=== PATIENT | female | born 1960 | race Caucasian/White ===

== ENCOUNTER 2016-06-18 07:45 | Emergency (ER) | payer BC ==
[~2016-06-18] VITALS: Ht 167.6 cm; Wt 65.6 kg
[~2016-06-18 07:45] MED LIST: INDO-24 PO; IPRA0.037 NAE; MULT-513 PO; NAPR1TAB9 PO; ZOLM5SPR
[2016-06-18 07:50] VITALS: TEMP 36.6; Ht 167.6 cm; Wt 65.6 kg
[2016-06-18] MEDS ORDERED: SODIUM CHLORIDE 0.9% 1000ML 1,000 ML IV STA (08:15)
[2016-06-18] MEDS ORDERED: DEXAMETHASONE SOD INJ 4 MG/ML VIAL IV STA (08:15)
[2016-06-18] MEDS ORDERED: KETOROLAC TROMETHAMINE 30 MG/ML VIAL IV STA (08:15)
[2016-06-18] MEDS ORDERED: PROCHLORPERAZINE 5 MG/ML 2 ML VIAL IV STA (08:15)
[2016-06-18] MEDS ORDERED: DiphenhydrAMINE HCL 50 MG/ML VIAL IV STA (08:15)
[2016-06-18] MEDS ORDERED: LORAZEPAM 2 MG/ML 1 ML VIAL IV STA (08:15)
[2016-06-18 08:44] LABS: BASO % 0.5 %; BASO ABS # 0.04 K/uL (0-0.2); COMPLETE YES; EOS % 2.5 %; HEMATOCRIT 41.9 % (37-47); IG% 0.3 %; LYMPH % 29.1 %; LYMPH ABS # 2.19 K/uL (1.2-3.4); MEAN CORPUSCULAR HEMOGLOBIN 30.9 pg (25-34); MEAN CORPUSCULAR HGB CONC 35.1 g/dl (32-36); MEAN PLATELET VOLUME 10.2 fL (7.4-10.4); NEUT % 60.6 %; PLATELET COUNT 270 K/uL (130-400); RED BLOOD COUNT 4.76 M/uL (4.2-5.4); WHITE BLOOD COUNT 7.53 K/uL (4.8-10.8)
--- NOTE | 2016-06-18 08:58 | DIAGNOSTIC IMAGING REPORT ---
HEAD CT NONCONTRAST CT DOSE: 788.63 mGycm HISTORY: Headache. Evaluate for hemorrhage or pathology TECHNIQUE: Multiaxial CT images of the head were performed without the use of intravenous contrast. Automated exposure control was utilized for this study. Comparison: Head CT 08/08/2015. Findings: The paranasal sinuses and mastoid air cells are clear. The calvarium and skull base are intact. The ventricles and sulci are within normal limits. There is no mass, hematoma, midline shift, or acute infarct. Impression: No acute intracranial abnormality. Electronically signed by: Daniel Salazar M.D. 06/18/2016 8:57 AM Dictated Date/Time: 06/18/2016 8:51 AM
[2016-06-18 09:00] LABS: ALT/SGPT 19 U/L (12-78); BLOOD UREA NITROGEN 17 mg/dl (7-18); BUN/CREATININE RATIO 20.5 (10-20); CALCIUM 9.2 mg/dl (8.5-10.1); CARBON DIOXIDE 24 mmol/L (21-32); CHLORIDE 107 mmol/L (98-107); CREATININE 0.82 mg/dl (0.60-1.20); GLUCOSE 86 mg/dl (70-99); POTASSIUM 4.1 mmol/L (3.5-5.1); SODIUM 142 mmol/L (136-145)
[2016-06-18 09:11] LABS: ALKALINE PHOSPHATASE 50 U/L (45-117); AST/SGOT 14 U/L (15-37)
--- NOTE | 2016-06-18 10:29 | EMERGENCY ROOM VISIT NOTE ---
History First contact with patient: 08:00 Chief Complaint: HEADACHE Stated Complaint: SEVERE MIGRAINE History of Present Illness The patient is a 55 year old female who presents to the Emergency Room with complaints of a migraine headache. The patient reports that her symptoms were present upon awakening this morning. The patient reports a prior history of migraines that are usually left-sided. Her headache this morning is also left- sided. She reports that this headache feels different though and that she is weaker than usual. The patient also had 2 episodes of vomiting this morning. She also had some diarrhea yesterday and today. She reports that her legs left arm feel tingly. She otherwise has left-sided stabbing headache rated a 3 out of 10. She also reports photophobia. The patient denies any chest pain, shortness of breath or urinary symptoms. She presents with her son for further evaluation. Review of Systems 10 system review was performed and was negative except for pertinent positives and negatives as indicated in history of present illness Past Medical/Surgical History Medical Problems: (1) Migraines Family History FH: cancer Social History Smoking Status: Never Smoker Alcohol Use: none Drug Use: none Marital Status: single Housing Status: lives with family Occupation Status: employed Current/Historical Medications Scheduled Multivitamins/Minerals (Mvi With Minerals), 1 TAB PO DAILY Naproxen (Aleve), 220 MG PO Q8 Zolmitriptan (Zomig), 1 SPRAY NA DIRECTED Scheduled PRN Indomethacin (Indocin), 50 MG PO BID PRN for Migraine Allergies Coded Allergies: Latex1 -Allergic Contact Dermititis (Unverified Allergy, Mild, RASH, ) Physical Exam Vital Signs Date Time Temp Pulse Resp B/P Pulse Ox O2 Delivery O2 Flow Rate FiO2 06/18/16 09:14 72 18 155/73 96 Room Air 06/18/16 07:50 36.6 88 16 118/82 98 Room Air Physical Exam CONSTITUTIONAL: Healthy and well nourished. Alert and oriented X 3 with positive affect. HEENT: Normocephalic, atraumatic. Pupils equal, round and reactive. A shunt is photophobic, precluding funduscopic exam. NECK: Full active range of motion without discomfort. RESPIRATORY: Clear to auscultation bilaterally with no wheezing, crackles, rhonchi or stridor. CARDIOVASCULAR: Regular rate and rhythm with no murmurs, rubs or gallops. GASTROINTESTINAL: Bowel sounds present in all quadrants. Soft and nontender to palpation. MUSCULOSKELETAL: Full range of motion of all joints without discomfort. INTEGUMENTARY: No rash or other significant dermatologic conditions noted. NEUROLOGIC: Cranial nerves II-XII grossly intact. No focal neurologic deficits noted. Normal finger to nose test. Negative pronator drift. Medical Decision & Procedures ER Provider Diagnostic Interpretation: Noncontrast CT of the head does not show any intracranial hemorrhage, midline shift or mass effect. Radiologist report is as follows: HEAD CT NONCONTRAST CT DOSE: 788.63 mGycm HISTORY: Headache. Evaluate for hemorrhage or pathology TECHNIQUE: Multiaxial CT images of the head were performed without the use of intravenous contrast. Automated exposure control was utilized for this study. Comparison: Head CT 08/08/2015. Findings: The paranasal sinuses and mastoid air cells are clear. The calvarium and skull base are intact. The ventricles and sulci are within normal limits. There is no mass, hematoma, midline shift, or acute infarct. Impression: No acute intracranial abnormality. Laboratory Results 06/18/16 08:30 Red Blood Count 4.76, Mean Corpuscular Volume 88.0, Mean Corpuscular Hemoglobin 30.9, Mean Corpuscular Hemoglobin Concent 35.1, Mean Platelet Volume 10.2, Neutrophils (%) (Auto) 60.6, Lymphocytes (%) (Auto) 29.1, Monocytes (%) (Auto) 7.0, Eosinophils (%) (Auto) 2.5, Basophils (%) (Auto) 0.5, Neutrophils # (Auto) 4.56, Lymphocytes # (Auto) 2.19, Monocytes # (Auto) 0.53, Eosinophils # (Auto) 0.19, Basophils # (Auto) 0.04 06/18/16 08:30 Test 06/18/16 08:30 White Blood Count 7.53 K/uL (4.8-10.8) Red Blood Count 4.76 M/uL (4.2-5.4) Hemoglobin 14.7 g/dL (12.0-16.0) Hematocrit 41.9 % (37-47) Mean Corpuscular Volume 88.0 fL (80-100) Mean Corpuscular Hemoglobin 30.9 pg (25-34) Mean Corpuscular Hemoglobin Concent 35.1 g/dl (32-36) Platelet Count 270 K/uL (130-400) Mean Platelet Volume 10.2 fL (7.4-10.4) Neutrophils (%) (Auto) 60.6 % Lymphocytes (%) (Auto) 29.1 % Monocytes (%) (Auto) 7.0 % Eosinophils (%) (Auto) 2.5 % Basophils (%) (Auto) 0.5 % Neutrophils # (Auto) 4.56 K/uL (1.4-6.5) Lymphocytes # (Auto) 2.19 K/uL (1.2-3.4) Monocytes # (Auto) 0.53 K/uL (0.11-0.59) Eosinophils # (Auto) 0.19 K/uL (0-0.5) Basophils # (Auto) 0.04 K/uL (0-0.2) RDW Standard Deviation 40.0 fL (36.4-46.3) RDW Coefficient of Variation 12.4 % (11.5-14.5) Immature Granulocyte % (Auto) 0.3 % Immature Granulocyte # (Auto) 0.02 K/uL (0.00-0.02) Erythrocyte Sedimentation Rate 5 mm/hr (0-21) Anion Gap 11.0 mmol/L (3-11) Est Creatinine Clear Calc Drug Dose 73.4 ml/min Estimated GFR () 94.0 Estimated GFR (Non- 81.1 BUN/Creatinine Ratio 20.5 (10-20) Calcium Level 9.2 mg/dl (8.5-10.1) Total Bilirubin 0.3 mg/dl (0.2-1) Direct Bilirubin < 0.1 mg/dl (0-0.2) Aspartate Amino Transf (AST/SGOT) 14 U/L (15-37) Alanine Aminotransferase (ALT/SGPT) 19 U/L (12-78) Alkaline Phosphatase 50 U/L (45-117) Total Protein 7.4 gm/dl (6.4-8.2) Albumin 4.1 gm/dl (3.4-5.0) Thyroid Stimulating Hormone (TSH) 1.450 uIu/ml (0.300-4.500) The above labs were reviewed and were grossly normal. Medications Administered Medications (Trade) Dose Ordered Sig/Gianfranco Route Start Time Stop Time Status Last Admin Dose Admin Prochlorperazine Edisylate 10 mg 10 mg NOW STAT IV 06/18/16 08:15 06/18/16 08:20 DC 06/18/16 08:39 10 MG Sodium Chloride (Nss 1000ml) 1,000 ml @ 999 mls/hr Q1H1M STAT IV 06/18/16 08:15 06/18/16 09:15 DC 06/18/16 08:40 999 MLS/HR Lorazepam (Ativan Inj) 1 mg NOW STAT IV 06/18/16 08:15 06/18/16 08:20 DC 06/18/16 08:38 1 MG Ketorolac Tromethamine (Toradol Inj) 30 mg NOW STAT IV 06/18/16 08:15 06/18/16 08:20 DC 06/18/16 08:46 30 MG Dexamethasone Sodium Phosphate (Decadron Inj) 10 mg NOW STAT IV 06/18/16 08:15 06/18/16 08:20 DC 06/18/16 08:38 10 MG Diphenhydramine HCl (Benadryl Inj) 25 mg NOW STAT IV 06/18/16 08:15 06/18/16 08:20 DC 06/18/16 08:39 25 MG ED Course Patient history and physical exam were performed. Nurse's notes were reviewed. Vital signs were reviewed and were normal. Because the patient's symptoms are atypical of her migraine, I did elect to perform additional lab work and a head CT. Head CT was normal. Lab work was also reviewed and normal. Patient was administered multiple IV medications as discussed in the previous Medications Administered section. The patient reported good relief of her symptoms. The patient reports that she does have a neurologist. She was encouraged to contact their office for close management. Return to the emergency department for any progressively worsening symptoms. She was instructed to rest and remain well-hydrated. Patient reports that she is currently using Zomig nasal sprays and OTC Naprosyn for her symptoms. Medical Decision She presents to the emergency department with symptoms most consistent with her typical migraine. I did however elect to perform additional lab work and a head CT because her symptoms seem to be somewhat different than what she has experienced in the past. Her workup today was otherwise normal. Based on history, physical exam and findings on today's workup, I do not suspect intracranial bleed, meningitis, CVA/TIA, abscess or carbon monoxide poisoning. Impression Primary Impression: Migraine Departure Information Referrals Ida Stacy M.D. (PCP) Patient Instructions My [facility] Problem Qualifiers Primary Impression: Migraine Migraine type: unspecified Status migrainosus presence: without status migrainosus Intractability: not intractable Qualified Codes: G43.909 - Migraine, unspecified, not intractable, without status migrainosus
[2016-06-18 10:38] VITALS: BP 122/83; PULSE 80; O2SAT 96
== END 2016-06-18 10:39 | disposition home or self-care (01) ==
LOC: C.EDB 07:47 → C.EDA 10:39
DX: G43.909 Migraine, unspecified, not intractable, without status migrainosus (principal); Z91.040 Latex allergy status; Z80.9 Family history of malignant neoplasm, unspecified

== ENCOUNTER 2016-07-23 08:43 | Emergency (ER) | payer BC ==
[~2016-07-23] VITALS: Ht 167.6 cm; Wt 67.3 kg
[~2016-07-23 08:43] MED LIST changes: -IPRA0.037 NAE
[2016-07-23 08:52] VITALS: TEMP 36.4; Ht 167.6 cm; Wt 67.3 kg
[2016-07-23] MEDS ORDERED: PROMETHAZINE HCL INJ 25 MG in SODIUM CHLORIDE 0.9% 50ML 50 ML IV STA (09:05)
[2016-07-23] MEDS ORDERED: SODIUM CHLORIDE 0.9% 1000ML 1,000 ML IV STA (09:05)
[2016-07-23] MEDS ORDERED: DiphenhydrAMINE HCL 50 MG/ML VIAL IV STA (09:05)
[2016-07-23] MEDS ORDERED: LORAZEPAM 2 MG/ML 1 ML VIAL IV STA (09:05)
[2016-07-23] MEDS ORDERED: KETOROLAC TROMETHAMINE 30 MG/ML VIAL IV STA (09:05)
[2016-07-23] MEDS ORDERED: DEXAMETHASONE SOD INJ 10 MG/ML VIAL IV STA (09:05)
--- NOTE | 2016-07-23 09:06 | EMERGENCY ROOM VISIT NOTE ---
History Report prepared by Darnell: Levi Watt Under the Supervision of: Dr. Jah Holley M.D. First contact with patient: 08:58 Chief Complaint: HEADACHE Stated Complaint: HEADACHE History of Present Illness The patient is a 56 year old female who presents to the Emergency Room with complaints of a persistent migraine headache that started two days ago. The pain is rated 6/10 in severity. The headache is localized to the left side of her head and feels like a typical migraine. She denies any neck stiffness of neck pain outside of her baseline chronic neck pain. The patient has been taking Naproxen and Indomethacin. She follows up with Neurology. Source of History: patient Onset: two days ago Position: head Symptom Intensity: 6/10 Quality: other (migraine) Timing: other (persistent) Associated Symptoms: No neck pain Review of Systems See HPI for pertinent positives & negatives. A total of 10 systems reviewed and were otherwise negative. Past Medical & Surgical Medical Problems: (1) Migraines Family History FH: cancer Social History Smoking Status: Never Smoker Alcohol Use: none Drug Use: none Marital Status: single Housing Status: lives with family Occupation Status: employed Current/Historical Medications Scheduled Multivitamins/Minerals (Mvi With Minerals), 1 TAB PO DAILY Naproxen (Aleve), 220 MG PO Q8 Zolmitriptan (Zomig), 1 SPRAY NA DIRECTED Scheduled PRN Indomethacin (Indocin), 50 MG PO BID PRN for Migraine Allergies Coded Allergies: Latex1 -Allergic Contact Dermititis (Unverified Allergy, Mild, RASH, ) Physical Exam Vital Signs Date Time Temp Pulse Resp B/P Pulse Ox O2 Delivery O2 Flow Rate FiO2 07/23/16 12:20 87 144/68 98 07/23/16 11:29 100 113/97 97 Room Air 07/23/16 10:25 86 07/23/16 08:52 36.4 77 16 138/86 99 Room Air Physical Exam GENERAL: Patient is a healthy-appearing well-nourished HEAD: Normocephalic atraumatic EYES: Ocular movements intact pupils equal and react to light OROPHARYNX mucous membranes are moist no exudates present no erythema or edema present NECK: Supple no nuchal rigidity. No evidence of meningitis or encephalitis on exam. CHEST: Good equal expansion LUNGS: Clear and equal to auscultation CARDIAC: Normal S1 and S2 ABDOMEN: Soft nontender no guarding BACK: No CVA tenderness EXTREMITIES: No pain upon palpation normal muscle strength in all groups no clubbing cyanosis or edema NEURO: Patient is following commands is answering questions appropriately. Alert and oriented x3 Cranial Nerves 2-12 grossly intact Medical Decision & Procedures Medications Administered Medications (Trade) Dose Ordered Sig/Gianfranco Route Start Time Stop Time Status Last Admin Dose Admin Sodium Chloride (Nss 1000ml) 1,000 ml @ 999 mls/hr Q1H1M STAT IV 07/23/16 09:05 07/23/16 10:05 DC 07/23/16 09:56 999 MLS/HR Ketorolac Tromethamine 30 mg 30 mg NOW STAT IV 07/23/16 09:05 07/23/16 09:08 DC 07/23/16 09:55 30 MG Promethazine HCl/ Sodium Chloride (Phenergan Inj/ Nss 50ml) 51 ml @ 204 mls/hr NOW STAT IV 07/23/16 09:05 07/23/16 09:19 DC 07/23/16 09:52 204 MLS/HR Lorazepam (Ativan Inj) 1 mg NOW STAT IV 07/23/16 09:05 07/23/16 09:08 DC 07/23/16 09:54 1 MG Diphenhydramine HCl (Benadryl Inj) 50 mg NOW STAT IV 07/23/16 09:05 07/23/16 09:08 DC 07/23/16 09:55 50 MG Dexamethasone Sodium Phosphate (Decadron Inj) 10 mg NOW STAT IV 07/23/16 09:05 07/23/16 09:08 DC 07/23/16 09:56 10 MG ED Course 0905: Past medical records reviewed. The patient was evaluated in room B11b. A complete history and physical examination was performed. 0905: Decadron 10 mg IV, Benadryl 50 mg IV, Ativan 1 mg IV, Promethazine HCl 25 mg / NSS 51 ml @ 204 mls/hr, Toradol 30 mg IV, NSS 1000 ml @ 999 mls/hr. 1120: Reassessed the patient. Discussed the treatment plan with her. She verbalized understanding. She is ready for discharge. Medical Decision Differential diagnosis: Etiologies such as migraine headache, meningitis, sinusitis, CO exposure, ICH, SAH, infection, tumor, headache, sinus thrombosis, arterial dissection, as well as others were entertained. This is a 56-year-old female who presents emergency department complaining of migraine. The patient states that this is a normal migraine headache for her. She denies any neck stiffness and has no evidence of meningitis or encephalitis on examination. The patient asked for her normal routine meds which include Compazine and Benadryl and Decadron and Toradol and Ativan. The patient was actually given Phenergan instead of Compazine. She complained of a dystonic reaction to the Phenergan however does not wish to have any more meds and wishes to go home and sleep it off. The patient at the time of discharge was feeling much better from a headache. She is going to follow-up with her neurologist and was in agreement with the treatment plan. Impression Primary Impression: Headache Scribe Attestation The scribe's documentation has been prepared under my direction and personally reviewed by me in its entirety. I confirm that the note above accurately reflects all work, treatment, procedures, and medical decision making performed by me. Departure Information Dispostion Home / Self-Care Referrals Ida Stacy M.D. (PCP) Forms HOME CARE DOCUMENTATION FORM, IMPORTANT VISIT INFORMATION, School Instructions, Work Instructions Patient Instructions Headache Pain, My [facility] Additional Instructions You received narcotic or benzodiazepene medication while in the emergency room today. Do not drive, operate heavy machinery, or drink alcohol under the influence of this medication. You have been examined and treated today on an emergency basis only. This is not a substitute for, or an effort to provide, complete comprehensive medical care. It is impossible to recognize and treat all injuries or illnesses in a single emergency department visit. It is therefore important that you follow up closely with DR Stacy. Call as soon as possible for an appointment. Thank you for your time and consideration. I look forward to speaking with you again soon. Please don't hesitate to call us if you have any questions. Problem Qualifiers Primary Impression: Headache Headache type: tension-type Headache chronicity pattern: acute headache Intractability: not intractable Qualified Codes: G44.209 - Tension-type headache, unspecified, not intractable
[2016-07-23 12:20] VITALS: BP 144/68; PULSE 87; O2SAT 98
== END 2016-07-23 12:23 | disposition home or self-care (01) ==
LOC: C.EDB 08:45
DX: G44.209 Tension-type headache, unspecified, not intractable (principal)

== ENCOUNTER 2016-08-27 00:23 | Emergency (ER) | payer BC ==
[~2016-08-27] VITALS: Ht 167.6 cm; Wt 77.5 kg
[2016-08-27 00:28] VITALS: TEMP 36.4; Ht 167.6 cm; Wt 77.5 kg
[2016-08-27] MEDS ORDERED: SODIUM CHLORIDE 0.9% 1000ML 1,000 ML IV STA (00:36)
[2016-08-27] MEDS ORDERED: KETOROLAC TROMETHAMINE 30 MG/ML VIAL IV STA (00:36)
[2016-08-27] MEDS ORDERED: DiphenhydrAMINE HCL 50 MG/ML VIAL IV STA (00:36)
[2016-08-27] MEDS ORDERED: DEXAMETHASONE SOD INJ 4 MG/ML VIAL IV STA (00:36)
[2016-08-27] MEDS ORDERED: LORAZEPAM 2 MG/ML 1 ML VIAL IV STA (00:36)
[2016-08-27] MEDS ORDERED: PROCHLORPERAZINE 5 MG/ML 2 ML VIAL IV STA (00:36)
[2016-08-27 01:07] VITALS: O2SAT 96
[2016-08-27 02:14] VITALS: BP 140/79; PULSE 78; O2SAT 97
--- NOTE | 2016-08-27 02:23 | EMERGENCY ROOM VISIT NOTE ---
History Report prepared by Orlandoibkeya: Jonathon Still Under the Supervision of: Dr. Mookie Dominguez M.D. First contact with patient: 00:30 Chief Complaint: HEADACHE Stated Complaint: MIGRAINE,NAUSEA,THROWING UP History of Present Illness The patient is a 56 year old female who presents to the Emergency Room with complaints of a constant headache beginning yesterday. She has a history of migraines and states that her current headaches feels like a typical migraine. She is on Indocin for her migraines. The patient has had migraines for almost 30 years. She denies any recent falls or trauma. She also complains of nausea, and states that she vomited once today. The patient states that the nausea is typical of her migraines. She states that her headache began in the back of her head, and moved to the front of her head. She states that this is also typical of her migraines. The patient states that she has experienced some left arm and leg tingling which is also typical of her migraines. Pt denies LOC, fevers, chills, visual changes, neck pain/stiffness, thunder clap or sudden onset of headache, carbon monoxide exposure, ear problems/hearing loss, sinus congestion/ recent infection, chest pain, breathing difficulties, abdominal pain, urinary symptoms, weakness, lymphadenopathy, rash, or other complaints. Source of History: patient Onset: Yesterday Position: head Timing: constant Associated Symptoms: + nausea, + vomiting, No LOC, No weakness Review of Systems See HPI for pertinent positives and negatives. A total of ten systems were reviewed and were otherwise negative. Past Medical & Surgical Medical Problems: (1) Migraines Family History FH: cancer Social History Smoking Status: Never Smoker Alcohol Use: none Drug Use: none Marital Status: single Housing Status: lives with family Occupation Status: employed Current/Historical Medications Scheduled Multivitamins/Minerals (Mvi With Minerals), 1 TAB PO DAILY Scheduled PRN Indomethacin (Indocin), 50 MG PO BID PRN for Migraine Naproxen (Aleve), 440 MG PO Q8 PRN for Pain Zolmitriptan (Zomig), 1 SPRAY NA DIRECTED PRN for Migraine Allergies Coded Allergies: Latex1 -Allergic Contact Dermititis (Unverified Allergy, Mild, RASH, ) Physical Exam Vital Signs Date Time Temp Pulse Resp B/P Pulse Ox O2 Delivery O2 Flow Rate FiO2 08/27/16 02:14 78 14 140/79 97 Room Air 08/27/16 01:07 96 Nasal Cannula 2.0 08/27/16 01:06 84 Room Air 08/27/16 01:04 79 08/27/16 01:04 74 18 138/70 94 Room Air 08/27/16 00:28 36.4 78 20 130/86 99 Room Air Physical Exam GENERAL: Awake, alert, uncomfortable appearing, tearful HENT: Normocephalic, atraumatic. TM's normal. Oropharynx unremarkable. EYES: PERRL. EOMI. Normal conjunctiva. Sclera non-icteric. NECK: Supple. No nuchal rigidity. FROM. No JVD or bruit. RESPIRATORY: CTA CARDIAC: RRR. No murmur. ABDOMEN: Soft, non distended. No tenderness to palpation. No rebound or guarding. No masses. RECTAL: Deferred. MUSCULOSKELETAL: Unremarkable. No edema. No discoloration. Gross motor strength symmetric. NEURO: Cranial nerves 2-12 grossly intact. Normal sensorium. No sensory or motor deficits noted. Speech normal. No pronator drift. Subjective tingling in the left arm and left leg. Mild weakness in the left leg with hip flection and plantar flection. SKIN: No rash or jaundice noted. LYMPH: No adenopathy. Medical Decision & Procedures Medications Administered Medications (Trade) Dose Ordered Sig/[facility] Route Start Time Stop Time Status Last Admin Dose Admin Prochlorperazine Edisylate 10 mg 10 mg NOW STAT IV 08/27/16 00:36 08/27/16 00:38 DC 08/27/16 00:57 10 MG Sodium Chloride (Nss 1000ml) 1,000 ml @ 999 mls/hr Q1H1M STAT IV 08/27/16 00:36 08/27/16 01:36 DC 08/27/16 00:47 999 MLS/HR Ketorolac Tromethamine (Toradol Inj) 30 mg NOW STAT IV 08/27/16 00:36 08/27/16 00:38 DC 08/27/16 00:49 30 MG Diphenhydramine HCl (Benadryl Inj) 25 mg NOW STAT IV 08/27/16 00:36 08/27/16 00:38 DC 08/27/16 00:48 25 MG Dexamethasone Sodium Phosphate (Decadron Inj) 10 mg NOW STAT IV 08/27/16 00:36 08/27/16 00:38 DC 08/27/16 00:51 10 MG Lorazepam (Ativan Inj) 0.5 mg NOW STAT IV 08/27/16 00:36 08/27/16 00:38 DC 08/27/16 00:54 0.5 MG ED Course 0035: The patient was evaluated in room B9. A complete history and physical exam was performed. 0036: Ordered Ativan Inj 0.5 mg IV, Decadron Inj 10 mg IV, Benadryl Inj 25 mg IV , Toradol Inj 30 mg IV, Sodium Chloride 1000 ml @ 999 mls/hr IV, Compazine Inj 10 mg IV. 0225: I reevaluated the patient. She feels much better and symptoms resolved. Discussed results and discharge instructions: she verbalized understanding and agreement. The patient is ready for discharge. Medical Decision Triage Nursing notes reviewed. The patient's presentation and history were concerning for severe headache. Etiologies such as migraine, tumor, headache, sinus thrombosis, temporal arteritis, sinusitis, CVA, ICH, SAH, infection, as well as others were entertained. The patient was evaluated. She was very uncomfortable. Record review indicates frequent visits for headache. She was previously treated with Compazine, Benadryl, Decadron, Toradol, normal saline, and Ativan. The patient was given the same medications. She had complaints of some tingling and weakness on the left side of her body and notes that she has had this with many other previous migraines. She is followed by neurology. The patient does note a lot of stress recently with family health issues. The patient received the medications and then was resting comfortably. On reassessment also symptoms are resolved. She has no more numbness, tingling or weakness on the left side. She states she feels back to normal. I did discuss the need for close outpatient follow-up especially with neurology. I gave my usual and customary discussion regarding this issue. By the evaluation outlined above other emergent etiologies such as those listed in the differential, as well as others, were deemed relatively unlikely. The patient was informed about the findings as listed above. All questions were answered and she was pleased with the treatment. Return instructions were outlined and the patient was discharged in stable condition. The patient was referred to her PCP for follow-up this week a recheck of the current condition. The chart was completed utilizing [employer] Speech voice recognition software. Grammatical errors, random word insertions, pronoun errors, and incomplete sentences are an occasional consequence of this system due to software limitations, ambient noise, and hardware issues. Any formal questions or concerns about the content, text, or information contained within the body of this dictation should be directly addressed to the physician for clarification. Impression Primary Impression: Headache Scribe Attestation The scribe's documentation has been prepared under my direction and personally reviewed by me in its entirety. I confirm that the note above accurately reflects all work, treatment, procedures, and medical decision making performed by me. Departure Information Dispostion Home / Self-Care Referrals Ida Stacy M.D. (PCP) Patient Instructions My [facility] Additional Instructions HEADACHE INSTRUCTIONS: DO NOT drive, drink alcohol, operate machinery, or perform dangerous activities today. You were given medications in the ER that can affect your ability to safely function or operate a vehicle. Rest today in a quiet, peaceful, dark environment and get a full 8-10 hrs of sleep tonight. Avoid loud noises, smoke/smoking, alcohol, bright lights, stress, or physical exertion today to minimize the chance the headache may return. Continue current medications. Ibuprofen(Motrin, Advil) may be used for fever or pain. Use 600mg every six hours as needed. Take with food. Avoid using more than 2400mg in a 24 hour period. Do not use 2400mg per day for more than three consecutive days without physician direction. Prolonged inappropriate use can lead to stomach upset or ulcers. (AND/OR) Acetaminophen(Tylenol) may be used for fever or pain. Use 1000mg every six hours as needed. Avoid using more than 4000mg in a 24 hour period. Return to the ER for passing out, worsening headache, vision problems, neck stiffness/pain, fevers, vomiting, worsening of your condition, or as needed. Follow up with your primary physician in 1-2 days for a recheck of your current condition. Problem Qualifiers Primary Impression: Headache Headache type: unspecified Headache chronicity pattern: acute headache Intractability: not intractable Qualified Codes: R51 - Headache
== END 2016-08-27 02:30 | disposition home or self-care (01) ==
LOC: C.EDB 00:24
DX: R51 Headache (principal); Z91.040 Latex allergy status; Z80.9 Family history of malignant neoplasm, unspecified

== ENCOUNTER 2016-10-18 08:47 | Emergency (ER) | payer BC ==
[~2016-10-18] VITALS: Ht 167.6 cm; Wt 67.0 kg
[2016-10-18 08:55] VITALS: TEMP 36.4; Ht 167.6 cm; Wt 67.0 kg
[2016-10-18] MEDS ORDERED: LORAZEPAM 2 MG/ML 1 ML VIAL IV STA (09:11)
[2016-10-18] MEDS ORDERED: SODIUM CHLORIDE 0.9% 1000ML 1,000 ML IV STA (09:11)
[2016-10-18] MEDS ORDERED: KETOROLAC TROMETHAMINE 30 MG/ML VIAL IV STA (09:11)
[2016-10-18] MEDS ORDERED: DiphenhydrAMINE HCL 50 MG/ML VIAL IV STA (09:11)
[2016-10-18] MEDS ORDERED: PROMETHAZINE HCL INJ 25 MG in SODIUM CHLORIDE 0.9% 50ML 50 ML IV STA (09:11)
[2016-10-18] MEDS ORDERED: PROCHLORPERAZINE 5 MG/ML 2 ML VIAL IV STA (09:15)
[2016-10-18] MEDS ORDERED: DEXAMETHASONE SOD INJ 10 MG/ML VIAL IV ONE (09:15)
--- NOTE | 2016-10-18 09:26 | EMERGENCY ROOM VISIT NOTE ---
History First contact with patient: 09:03 Chief Complaint: HEADACHE Stated Complaint: MIGRAINE History of Present Illness The patient is a 56 year old female who presents to the Emergency Room with complaints of migraine. The patient's headache started last night. The patient has a long-standing history of migraines for the last 30 years. The patient seems to be in great distress from her headache is crying and clutching her head and will not answer questions. The patient's son provides the majority of the history. He states this is very typical presentation for her. She has not been sick recently. She has not had any earache, sore throat, cough or fever. He states that she does have a neurologist with whom she follows closely. The patient rates her discomfort a 10/10. The patient's son has a list of medications that are usually tried and are successful to alleviate the migraine. The patient has not had any numbness, tingling, weakness although she has had complex migraines in the past. Review of Systems A 10 system review of systems was completed with positives and pertinent negatives listed in the HPI. Past Medical/Surgical History Medical Problems: (1) Migraines Family History FH: cancer Social History Smoking Status: Never Smoker Alcohol Use: none Drug Use: none Marital Status: single Housing Status: lives with family Occupation Status: employed Current/Historical Medications Scheduled Multivitamins/Minerals (Mvi With Minerals), 1 TAB PO DAILY Scheduled PRN Indomethacin (Indocin), 50 MG PO BID PRN for Migraine Naproxen (Aleve), 440 MG PO Q8 PRN for Pain Zolmitriptan (Zomig), 1 SPRAY NA DIRECTED PRN for Migraine Allergies Coded Allergies: Latex1 -Allergic Contact Dermititis (Unverified Allergy, Mild, RASH, ) Physical Exam Vital Signs Date Time Temp Pulse Resp B/P (MAP) Pulse Ox O2 Delivery O2 Flow Rate FiO2 10/18/16 10:49 108 18 117/50 98 Room Air 10/18/16 10:17 83 18 130/92 98 Room Air 10/18/16 08:55 36.4 85 22 130/78 97 Room Air Physical Exam VITALS: Vitals are noted on the nurse's note and reviewed by myself. Vital signs stable. GENERAL: This is a 56-year-old female who appears to be in great distress from the headache, nondiaphoretic, well-developed well-nourished. SKIN: The skin was without rashes, erythema, edema, or bruising. There is no tenting of the skin. Capillary reflex less than 2 seconds. HEAD: Normocephalic atraumatic. EARS: External auditory canals clear, tympanic membranes pearly zapien without erythema or effusion bilaterally. EYES: Pupils equal round and reactive to light and accommodation. Conjunctivae without injection, sclerae without icterus. Extraocular movements intact. NOSE: Patent, turbinates without inflammation or discharge. No sinus tenderness. MOUTH: Mucous membranes moist. Tonsils are not enlarged. Pharynx without erythema or exudate. Uvula midline. Airway patent. Tongue does not deviate. NECK: Supple without nuchal rigidity. No lymphadenopathy. No thyromegaly. Cervical spine is nontender. No JVD. HEART: Regular rate and rhythm without murmurs gallops or rubs. LUNGS: Clear to auscultation bilaterally without wheezes, rales or rhonchi. No retractions or accessory muscle use. MUSCULOSKELETAL: No muscle atrophy, erythema, or edema noted. Full range of motion in all extremities. Strength 5/5 throughout. NEURO: Patient was alert and oriented to person place and time. No focal neurological deficits. Medical Decision & Procedures Laboratory Results 10/18/16 09:30 Red Blood Count 5.27, Mean Corpuscular Volume 88.2, Mean Corpuscular Hemoglobin 29.8, Mean Corpuscular Hemoglobin Concent 33.8, Mean Platelet Volume 10.1, Neutrophils (%) (Auto) 61.4, Lymphocytes (%) (Auto) 29.0, Monocytes (%) (Auto) 6.8, Eosinophils (%) (Auto) 1.9, Basophils (%) (Auto) 0.6, Neutrophils # (Auto) 3.88, Lymphocytes # (Auto) 1.83, Monocytes # (Auto) 0.43, Eosinophils # (Auto) 0.12, Basophils # (Auto) 0.04 10/18/16 09:30 Test 10/18/16 09:30 White Blood Count 6.32 K/uL (4.8-10.8) Red Blood Count 5.27 M/uL (4.2-5.4) Hemoglobin 15.7 g/dL (12.0-16.0) Hematocrit 46.5 % (37-47) Mean Corpuscular Volume 88.2 fL (80-100) Mean Corpuscular Hemoglobin 29.8 pg (25-34) Mean Corpuscular Hemoglobin Concent 33.8 g/dl (32-36) Platelet Count 296 K/uL (130-400) Mean Platelet Volume 10.1 fL (7.4-10.4) Neutrophils (%) (Auto) 61.4 % Lymphocytes (%) (Auto) 29.0 % Monocytes (%) (Auto) 6.8 % Eosinophils (%) (Auto) 1.9 % Basophils (%) (Auto) 0.6 % Neutrophils # (Auto) 3.88 K/uL (1.4-6.5) Lymphocytes # (Auto) 1.83 K/uL (1.2-3.4) Monocytes # (Auto) 0.43 K/uL (0.11-0.59) Eosinophils # (Auto) 0.12 K/uL (0-0.5) Basophils # (Auto) 0.04 K/uL (0-0.2) RDW Standard Deviation 38.7 fL (36.4-46.3) RDW Coefficient of Variation 12.2 % (11.5-14.5) Immature Granulocyte % (Auto) 0.3 % Immature Granulocyte # (Auto) 0.02 K/uL (0.00-0.02) Anion Gap 6.0 mmol/L (3-11) Est Creatinine Clear Calc Drug Dose 65.3 ml/min Estimated GFR () 82.3 Estimated GFR (Non- 71.0 BUN/Creatinine Ratio 21.5 (10-20) Calcium Level 9.2 mg/dl (8.5-10.1) Medications Administered Medications (Trade) Dose Ordered Sig/Gianfranco Route Start Time Stop Time Status Last Admin Dose Admin Sodium Chloride 1,000 ml @ 999 mls/hr Q1H1M STAT IV 10/18/16 09:11 10/18/16 10:11 DC 10/18/16 09:11 999 MLS/HR Ketorolac Tromethamine (Toradol Inj) 30 mg NOW STAT IV 10/18/16 09:11 10/18/16 09:14 DC 10/18/16 09:11 30 MG Diphenhydramine HCl (Benadryl Inj) 25 mg NOW STAT IV 10/18/16 09:11 10/18/16 09:14 DC 10/18/16 09:11 25 MG Dexamethasone Sodium Phosphate (Decadron Inj) 10 mg NOW ONCE IV 10/18/16 09:15 10/18/16 09:16 DC 10/18/16 09:15 10 MG Lorazepam (Ativan Inj) 0.5 mg NOW STAT IV 10/18/16 09:11 10/18/16 09:14 DC 10/18/16 09:11 0.5 MG Prochlorperazine Edisylate (Compazine Inj) 10 mg NOW STAT IV 10/18/16 09:15 10/18/16 09:16 DC 10/18/16 09:15 10 MG ED Course The patient was seen and examined. Previous visits were reviewed. The patient does not have a fever or leukocytosis. She does not have any significant electrolyte abnormality. The patient was given IV Compazine, Benadryl, Toradol and Ativan with good improvement in her symptoms The patient presents to the emergency department with a long-standing history of migraines. She has very dramatic in presentation and her family members are quite doting on her. They state that this is very typical presentation for her. She has not had any fevers. She does not have leukocytosis, neck stiffness, nuchal rigidity to suggest meningitis. She was feeling better with the above medications which typically work for her. She should follow-up with her neurologist for further evaluation and management. She should return with any worsening symptoms. Medical Decision The differential diagnosis includes: head or neck trauma, cerebrovascular disorders, intracranial lesions, infection,transient ischemic attack (TIA), CVA , seizure, syncope, intracranial mass, intracranial bleeding and vestibular disorders, among others Impression Primary Impression: Migraine headache Departure Information Dispostion Home / Self-Care Condition GOOD Referrals Ida Stacy M.D. (PCP) [facility] Additional Instructions Rest Follow up with your neurologist for further evaluation and management Return with worsening symptoms Problem Qualifiers Primary Impression: Migraine headache
[2016-10-18 09:43] LABS: BASO % 0.6 %; BASO ABS # 0.04 K/uL (0-0.2); COMPLETE YES; EOS % 1.9 %; HEMATOCRIT 46.5 % (37-47); IG% 0.3 %; LYMPH ABS # 1.83 K/uL (1.2-3.4); MEAN CELL VOLUME 88.2 fL (80-100); MEAN CORPUSCULAR HEMOGLOBIN 29.8 pg (25-34); MEAN CORPUSCULAR HGB CONC 33.8 g/dl (32-36); MEAN PLATELET VOLUME 10.1 fL (7.4-10.4); MONO % 6.8 %; NEUT % 61.4 %; PLATELET COUNT 296 K/uL (130-400); RED BLOOD COUNT 5.27 M/uL (4.2-5.4); WHITE BLOOD COUNT 6.32 K/uL (4.8-10.8)
[2016-10-18 10:01] LABS: BUN/CREATININE RATIO 21.5 (10-20); CALCIUM 9.2 mg/dl (8.5-10.1); CREATININE 0.91 mg/dl (0.60-1.20); POTASSIUM 4.1 mmol/L (3.5-5.1)
[2016-10-18 10:49] VITALS: BP 117/50; PULSE 108; O2SAT 98
== END 2016-10-18 11:27 | disposition home or self-care (01) ==
LOC: C.EDB 08:48
DX: G43.909 Migraine, unspecified, not intractable, without status migrainosus (principal); Z80.9 Family history of malignant neoplasm, unspecified; Z79.899 Other long term (current) drug therapy

== ENCOUNTER 2016-12-08 20:01 | Emergency (ER) | payer BC ==
[~2016-12-08] VITALS: Ht 167.6 cm; Wt 67.5 kg
[2016-12-08 20:09] VITALS: Ht 167.6 cm; Wt 67.5 kg
[2016-12-08] MEDS ORDERED: ACETAMINOPHEN 325 MG TAB PO STA (21:17)
[2016-12-08 21:42] LABS: BASO % 1.4 %; BASO ABS # 0.08 K/uL (0-0.2); COMPLETE YES; EOS % 1.6 %; HEMATOCRIT 43.9 % (37-47); IG% 0.2 %; LYMPH % 27.8 %; MEAN CORPUSCULAR HEMOGLOBIN 30.5 pg (25-34); MEAN CORPUSCULAR HGB CONC 33.9 g/dl (32-36); MEAN PLATELET VOLUME 9.9 fL (7.4-10.4); MONO % 17.2 %; NEUT % 51.8 %; PLATELET COUNT 272 K/uL (130-400); RED BLOOD COUNT 4.88 M/uL (4.2-5.4); WHITE BLOOD COUNT 5.75 K/uL (4.8-10.8)
[2016-12-08 22:10] VITALS: TEMP 36.9
[2016-12-08 23:21] LABS: INFLUENZA A PCR POS for Influ A (NEG); INFLUENZA B PCR Neg for Influ B (NEG)
--- NOTE | 2016-12-08 23:43 | EMERGENCY ROOM VISIT NOTE ---
History Report prepared by Darnell: Alyssa Vicente Under the Supervision of: Dr. Kt Lopez M.D. First contact with patient: 21:08 Chief Complaint: FLU LIKE SX Stated Complaint: FLU MAYBE MALARIA, RETURNED FROM [place] History of Present Illness The patient is a 56 year old female who presents to the Emergency Room with complaints of an episode of flu like symptoms starting today. 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 She does state that she did get bit by mosquitoes. She states she initially thought it was from the long plane ride home. The patient states that she lives at home with her immunosuppressed mother and decided to come to the ED to make sure she didn't have Malaria. The patient complains of shakes, chills, cough, fever, fatigue, body aches, and slight sore throat. She denies taking anything for her symptoms. The patient currently rates her pain as a 2/10 in severity. Source of History: patient Onset: today Position: other (global) Symptom Intensity: 2/10 Quality: other (global) Timing: other (episode) Associated Symptoms: + fevers, + chills, + sorethroat, + cough, + fatigue Note: The patient complains of getting bit by a mosquito, shakes, and body aches. The patient denies taking any preventive medication. Review of Systems All systems have been listed, reviewed, and are negative other than those previously mentioned. Please see Additional Medical History Sheet. Past Medical & Surgical Medical Problems: (1) Migraines Family History FH: cancer Social History Smoking Status: Never Smoker Alcohol Use: none Drug Use: none Marital Status: single Housing Status: lives with family Occupation Status: employed Current/Historical Medications Scheduled Multivitamins/Minerals (Mvi With Minerals), 1 TAB PO DAILY Scheduled PRN Indomethacin (Indocin), 50 MG PO BID PRN for Migraine Naproxen (Aleve), 440 MG PO Q8 PRN for Pain Zolmitriptan (Zomig), 1 SPRAY NA DIRECTED PRN for Migraine Allergies Coded Allergies: Latex1 -Allergic Contact Dermititis (Verified Allergy, Mild, RASH, 12/08/16) Physical Exam Vital Signs Date Time Temp Pulse Resp B/P (MAP) Pulse Ox O2 Delivery O2 Flow Rate FiO2 12/08/16 23:51 98 18 128/87 97 Room Air 12/08/16 22:10 36.9 88 18 134/83 97 Room Air 12/08/16 20:09 36.5 115 20 126/80 95 Room Air Physical Exam GENERAL: Patient awake, alert, oriented x 3. Patient follows commands. Patient does not appear toxic. Patient is adequately hydrated and well- nourished. SKIN: No erythema, pallor, cyanosis or rash HEENT: Normal head, pupils equal, reactive to light and accommodation. Both ears have increased wax. Slight erythema in posterior pharynx. No puss. Neck: Without adenopathy, no neck vein distention. LUNGS: Clear to auscultation. No wheezes, no rales, no rhonchi. HEART: No murmurs. No gallops. No rubs ABDOMEN: Vague upper abdominal tenderness. No masses, no rebound, no guarding, no peritonitis, no hepatomegaly or splenomegaly. EXTREMITIES: No signs of trauma or infection. NEUROLOGIC: Cranial nerves II-XII within normal limits. No gross motor sensory function deficits. Medical Decision & Procedures Laboratory Results 12/08/16 21:30 Red Blood Count 4.88, Mean Corpuscular Volume 90.0, Mean Corpuscular Hemoglobin 30.5, Mean Corpuscular Hemoglobin Concent 33.9, Mean Platelet Volume 9.9, Neutrophils (%) (Auto) 51.8, Lymphocytes (%) (Auto) 27.8, Monocytes (%) (Auto) 17.2, Eosinophils (%) (Auto) 1.6, Basophils (%) (Auto) 1.4, Neutrophils # (Auto ) 2.98, Lymphocytes # (Auto) 1.60, Monocytes # (Auto) 0.99, Eosinophils # (Auto ) 0.09, Basophils # (Auto) 0.08 Test 12/08/16 21:24 12/08/16 21:30 Influenza Type A (RT-PCR) POS for Influ A (NEG) Influenza Type B (RT-PCR) Neg for Influ B (NEG) White Blood Count 5.75 K/uL (4.8-10.8) Red Blood Count 4.88 M/uL (4.2-5.4) Hemoglobin 14.9 g/dL (12.0-16.0) Hematocrit 43.9 % (37-47) Mean Corpuscular Volume 90.0 fL (80-100) Mean Corpuscular Hemoglobin 30.5 pg (25-34) Mean Corpuscular Hemoglobin Concent 33.9 g/dl (32-36) Platelet Count 272 K/uL (130-400) Mean Platelet Volume 9.9 fL (7.4-10.4) Neutrophils (%) (Auto) 51.8 % Lymphocytes (%) (Auto) 27.8 % Monocytes (%) (Auto) 17.2 % Eosinophils (%) (Auto) 1.6 % Basophils (%) (Auto) 1.4 % Neutrophils # (Auto) 2.98 K/uL (1.4-6.5) Lymphocytes # (Auto) 1.60 K/uL (1.2-3.4) Monocytes # (Auto) 0.99 K/uL (0.11-0.59) Eosinophils # (Auto) 0.09 K/uL (0-0.5) Basophils # (Auto) 0.08 K/uL (0-0.2) RDW Standard Deviation 41.7 fL (36.4-46.3) RDW Coefficient of Variation 12.7 % (11.5-14.5) Immature Granulocyte % (Auto) 0.2 % Immature Granulocyte # (Auto) 0.01 K/uL (0.00-0.02) Laboratory results as stated above per my review. Medications Administered Medications (Trade) Dose Ordered Sig/Gianfranco Route Start Time Stop Time Status Last Admin Dose Admin Acetaminophen (Tylenol Tab) 650 mg NOW STAT PO 12/08/16 21:17 12/08/16 21:21 DC 12/08/16 22:10 650 MG ED Course 2109: Past medical records reviewed. The patient was evaluated in room A9B. A complete history and physical examination was performed. 2116: Ordered Tylenol Tab 650 mg PO. 9: The patient has a positive influenza A test result. 2331: Upon reevaluation, the patient appeared to have improvement of her symptoms. I discussed today's findings with the patient. She verbalized agreement of the treatment plan. The patient was discharged home. Medical Decision Differential diagnoses include malaria, influenza, strep pharyngitis, other viral infections. The patient is here with fever chills body aches and is concerned about possible malaria contracted in [facility]. Patient returned to the [facility] 3 days ago. She became ill 2 days ago. She has a slight sore throat. The patient did not take any malaria prophylaxis but did use nets. Examination is nonspecific. Strep test was negative. White count is not elevated. Smear for Malaria did not reveal any parasites. Influenza testing was positive for influenza A. It seems unlikely that the patient has malaria. She does appear to have influenza although she probably contracted it more than 48 hours ago. I do not believe she is a candidate for treatment. The patient was encouraged to use Aleve and drink extra fluids. Medication Reconcilliation Current Medication List: was personally reviewed by me Blood Pressure Screening Patient's blood pressure: Normal blood pressure Blood pressure disposition: Did not require urgent referral Impression Primary Impression: Influenza A Scribe Attestation The scribe's documentation has been prepared under my direction and personally reviewed by me in its entirety. I confirm that the note above accurately reflects all work, treatment, procedures, and medical decision making performed by me. Departure Information Dispostion Home / Self-Care Referrals Ida Stacy M.D. (PCP) Forms HOME CARE DOCUMENTATION FORM, IMPORTANT VISIT INFORMATION Patient Instructions My [facility] Additional Instructions One Aleve every 8 hours until symptoms have resolved. Drink extra fluids. REST Avoid contact with others as much as possible until symptoms have resolved.
[2016-12-08 23:51] VITALS: BP 128/87; PULSE 98; O2SAT 97
== END 2016-12-08 23:51 | disposition home or self-care (01) ==
LOC: C.EDB 20:03 → C.EDA 23:51
DX: J11.1 Influenza due to unidentified influenza virus with other respiratory manifestations (principal)

== ENCOUNTER 2017-05-07 12:05 | Emergency (ER) | payer BC, OTHER ==
[~2017-05-07] VITALS: Ht 152.4 cm; Wt 69.1 kg
[~2017-05-07 12:05] MED LIST changes: -INDO-24 PO; -ZOLM5SPR
[2017-05-07 12:07] VITALS: Ht 152.4 cm; Wt 69.1 kg
--- NOTE | 2017-05-07 12:36 | EMERGENCY ROOM VISIT NOTE ---
History Report prepared by Darnell: Dayday Germain Under the Supervision of: Dr. Jesus Manuel Calloway M.D. First contact with patient: 12:14 Chief Complaint: HEADACHE Stated Complaint: HEADACHE History of Present Illness The patient is a 56 year old white female with a past medical history of a sinus surgery and previous migraines who presents to the ED with a cc of a sharp headache beginning yesterday. Positive nausea. Negative falls, trauma, vomiting, or abnormal urinary symptoms. Her headache is to the back and top of her head and does not move. 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 She took some Acetaminophen before she went to bed, but woke up with persistent symptoms. Her last headache was in January of this year. She notes that last summer she went to [facility] and was recommended to make healthy life style changes by a doctor there. She has been vigorous in her maintenance of her new routine. She denies any blood thinners or known allergies. Source of History: patient Onset: yesterday Position: head Symptom Intensity: moderate Quality: sharp Timing: constant Associated Symptoms: + nausea, No vomiting, No urinary symptoms Review of Systems See HPI for pertinent positives and negatives. A total of ten systems were reviewed and were otherwise negative. Past Medical & Surgical Medical Problems: (1) Migraines Family History FH: cancer Social History Smoking Status: Never Smoker Smokeless Tobacco Use: No Alcohol Use: none Drug Use: none Marital Status: single Housing Status: lives with family Occupation Status: employed Current/Historical Medications Scheduled Calcium Carbonate-Vitamin D (Calcium + D), 1 TAB PO DAILY Scheduled PRN Indomethacin (Indocin), 50 MG PO BID PRN for Migraine Zolmitriptan (Zomig), 1 SPRAY NA DIRECTED PRN for Migraine Allergies Coded Allergies: Latex1 -Allergic Contact Dermititis (Verified Allergy, Mild, RASH, 05/07/17) Physical Exam Vital Signs Date Time Temp Pulse Resp B/P (MAP) Pulse Ox O2 Delivery O2 Flow Rate FiO2 05/07/17 13:43 36.8 80 16 137/81 100 Room Air 05/07/17 12:07 36.3 113 20 141/67 100 Room Air Physical Exam GENERAL: Awake, alert, well-appearing, NAD HENT: Normocephalic, atraumatic. EYES: Normal conjunctiva. Sclera non-icteric. NECK: Supple. No nuchal rigidity. FROM. RESPIRATORY: CTAB, no rhonchi, wheezing, crackles CARDIAC: RRR, no MRG ABDOMEN: Soft, NTND, BS+ MSK: No chest wall TTP, no LE edema NEURO: CN 2-12 intact, 5/5 upper and lower extremity strength, no dysmetria, no drift, good finger to nose, no sensory deficits. SKIN: No rash or jaundice noted. Medical Decision & Procedures Medications Administered Medications (Trade) Dose Ordered Sig/Gianfranco Route Start Time Stop Time Status Last Admin Dose Admin Prochlorperazine Edisylate (Compazine Inj) 10 mg NOW STAT IV 05/07/17 12:39 05/07/17 12:40 DC 05/07/17 13:11 10 MG Ketorolac Tromethamine (Toradol Inj) 30 mg NOW STAT IV 05/07/17 12:39 05/07/17 12:40 DC 05/07/17 13:12 30 MG Acetaminophen (Tylenol Tab) 1,000 mg NOW STAT PO 05/07/17 12:39 05/07/17 12:40 DC 05/07/17 13:13 1,000 MG Dexamethasone Sodium Phosphate (Decadron Inj) 10 mg NOW STAT IV 05/07/17 12:39 05/07/17 12:40 DC 05/07/17 13:11 10 MG Diphenhydramine HCl (Benadryl Inj) 25 mg NOW STAT IV 05/07/17 12:39 05/07/17 12:40 DC 05/07/17 13:11 25 MG Magnesium Sulfate (Magnesium Sulfate) 1 gm NOW STAT IV 05/07/17 12:39 05/07/17 12:40 DC 05/07/17 13:12 1 GM ED Course 1214: The patient was evaluated in room C2. A complete history and physical exam was performed. 1349: I reevaluated the patient. Her headache has now resolved. She will follow up with her PCP adn Neurologist. Discussed results and discharge instructions: She verbalized understanding and agreement. The patient is ready for discharge. Medical Decision The patient is a 56 year old white female with a past medical history of a sinus surgery and previous migraines who presents to the ED with a cc of a sharp headache beginning yesterday. Positive nausea. Negative falls, trauma, vomiting, or abnormal urinary symptoms. Differential diagnosis: Etiologies such as migraine headache, meningitis, sinusitis, CO exposure, ICH, SAH, infection, tumor, headache, sinus thrombosis, arterial dissection, as well as others were entertained. Patient was seen and evaluated the bedside. Patient did complain of some right- sided sharp headache. Patient states that she's had a history of migraines but has not had one since January. Patient denies any recent falls does not take any blood thinning medications and also denies any subjective numbness tingling or weakness. Patient exam does look mildly uncomfortable does not have any signs of meningismus. Patient has full range of motion of the neck. Patient was offered a CT scan patient believe this is apical of her migraines and declined at this time. I believe this is reasonable. Patient was given medication management. Patient not have any other localizing signs or other concerns. Patient denied any urinary symptoms. Patient will reassessment was feeling much improved. Patient was told to follow-up with with her PCP as well as her primary neurologist. Patient again has no focal signs of any weakness numbness or tingling upon reassessment. Patient is amenable to outpatient follow-up and treatment. Patient was given strict follow-up, discharge, and return precautions. All questions were answered. Patient was deemed suitable for outpatient follow-up at this time. Patient agreed with the plan of care and was safely discharged home. Medication Reconcilliation Current Medication List: was personally reviewed by me Blood Pressure Screening Patient's blood pressure: Elevated blood pressure Blood pressure disposition: Elevated BP felt to be situational Impression Primary Impression: Migraine Scribe Attestation The scribe's documentation has been prepared under my direction and personally reviewed by me in its entirety. I confirm that the note above accurately reflects all work, treatment, procedures, and medical decision making performed by me. Departure Information Dispostion Home / Self-Care Referrals Ida Stacy M.D. (PCP) Nikolas Canchola M.D. Forms HOME CARE DOCUMENTATION FORM, IMPORTANT VISIT INFORMATION Patient Instructions ED Headache Migraine, Headache Migraine Triggers Prevent, My [facility] Additional Instructions Please return to the emergency department if you have worsening or recurrent symptoms not amenable to at-home treatment. Please call for a follow-up appointment with her primary care physician. Please take your medications as prescribed. If you have other concerns and/or complaints please feel free to also call your primary care physician's office or return the ED for further evaluation, management, and treatment. You may take 600 mg Ibuprofen every 6 hours as needed for pain with food for no more than 2 consecutive days. You may take tylenol 1000 mg every 6 hours as needed for pain. You may take motrin and tylenol separately or at the same time. Take your medications as prescribed. You have been examined and treated today on an emergency basis only. This is not a substitute for, or an effort to provide, complete comprehensive medical care. It is impossible to recognize and treat all injuries or illnesses in a single emergency department visit. It is therefore important that you follow up closely with [facility], your PCP, and/or your specialist(s). Call as soon as possible for an appointment. Thank you for your time and consideration. I look forward to speaking with you again soon. Please don't hesitate to call us if you have any questions. Problem Qualifiers Primary Impression: Migraine Migraine type: without aura Status migrainosus presence: without status migrainosus Intractability: not intractable Qualified Codes: G43.009 - Migraine without aura, not intractable, without status migrainosus
[2017-05-07] MEDS ORDERED: KETOROLAC TROMETHAMINE 30 MG/ML VIAL IV STA (12:39)
[2017-05-07] MEDS ORDERED: MAGNESIUM SULFATE 1GM / D5W 1 GM BAG IV STA (12:39)
[2017-05-07] MEDS ORDERED: DEXAMETHASONE SOD INJ 4 MG/ML VIAL IV STA (12:39)
[2017-05-07] MEDS ORDERED: ACETAMINOPHEN 500 MG TAB PO STA (12:39)
[2017-05-07] MEDS ORDERED: PROCHLORPERAZINE 5 MG/ML 2 ML VIAL IV STA (12:39)
[2017-05-07] MEDS ORDERED: DiphenhydrAMINE HCL 50 MG/ML VIAL IV STA (12:39)
[2017-05-07 13:43] VITALS: BP 137/81; PULSE 80; TEMP 36.8; O2SAT 100
[2017-07-03] MEDS ORDERED: ZOLM5SPR (03:29)
[2017-07-03] MEDS ORDERED: INDO-24 PO (08:50)
[2017-09-14] MEDS ORDERED: OXYC-737 PO (23:29)
== END 2017-05-07 14:07 | disposition home or self-care (01) ==
LOC: C.EDB 12:06 → C.EDC 14:07
DX: G43.909 Migraine, unspecified, not intractable, without status migrainosus (principal)

== ENCOUNTER 2017-07-03 10:28 | Emergency (ER) | payer OTHER ==
[~2017-07-03] VITALS: Ht 167.6 cm; Wt 69.1 kg
[~2017-07-03 10:28] MED LIST changes: +INDO-24 PO; -MULT-513 PO; -NAPR1TAB9 PO; +ZOLM5SPR
[2017-07-03 10:35] VITALS: Ht 167.6 cm; Wt 69.1 kg
[2017-07-03] MEDS ORDERED: PROM1SUP19 PR (11:37)
[2017-07-03] MEDS ORDERED: ACET-1311 PO (11:37)
[2017-07-03] MEDS ORDERED: ACETAMINOPHEN 500 MG TAB PO STA (11:43)
[2017-07-03] MEDS ORDERED: DiphenhydrAMINE HCL 50 MG/ML VIAL IV STA (11:43)
[2017-07-03] MEDS ORDERED: PROCHLORPERAZINE 5 MG/ML 2 ML VIAL IV STA (11:43)
[2017-07-03] MEDS ORDERED: SODIUM CHLORIDE 0.9% 1000ML 1,000 ML IV STA (11:43)
[2017-07-03] MEDS ORDERED: KETOROLAC TROMETHAMINE 30 MG/ML VIAL IV STA (11:43)
--- NOTE | 2017-07-03 11:53 | EMERGENCY ROOM VISIT NOTE ---
History Report prepared by Darnell: Ric Rodriguez Under the Supervision of: Dr. Yobani Pardo M.D. First contact with patient: 11:41 Chief Complaint: FLU LIKE SX Stated Complaint: HEADACHE,VOMITING,DIARRHEA,CANT STOP CRYING History of Present Illness The patient is a 56 year old female who presents to the Emergency Room with complaints of a severe and constant headache that began last night. The patient rates the severity of her current headache as a 9/10 in severity. The patient has a history of migraine headaches, which have brought her to the emergency department before. Her current headache is concentrated all on the left side of her head, as well as across her nose and under her eyes. The patient states that her symptoms onset yesterday morning when she was not able to get herself out of bed. She was not in pain at this time but notes that she simply could not force herself to get out of bed. She is also currently complaining of nausea , vomiting, and diarrhea as well. The patient continued to mention that she feels very "psychologically unbalanced" today and cannot stop crying. She is not suicidal and stresses that she loves her life. The patient does work in [place] and most recently returned home in December of 2016 and was diagnosed with [place] Flu. It was mentioned to her at this time that she could have possibly contracted malaria. Malaria was never confirmed. Source of History: patient Onset: Last night Position: head Symptom Intensity: 9/10 Timing: constant Associated Symptoms: + nausea, + vomiting, + diarrhea Review of Systems See HPI for pertinent positives & negatives. A total of 10 systems reviewed and were otherwise negative. Past Medical & Surgical Medical Problems: (1) Migraines Family History FH: cancer Social History Smoking Status: Never Smoker Alcohol Use: none Drug Use: none Marital Status: single Housing Status: lives with family Occupation Status: employed Current/Historical Medications Scheduled Acetaminophen (Tylenol), 650 MG PO UD Calcium Carbonate-Vitamin D (Calcium + D), 1 TAB PO DAILY Scheduled PRN Indomethacin (Indocin), 50 MG PO BID PRN for Migraine Promethazine (Phenergan Suppository), 25 MG [place] Q6H PRN for Nausea Zolmitriptan (Zomig), 1 SPRAY NA DIRECTED PRN for Migraine Allergies Coded Allergies: Latex1 -Allergic Contact Dermititis (Verified Allergy, Mild, RASH, 07/03/17) Physical Exam Vital Signs Date Time Temp Pulse Resp B/P (MAP) Pulse Ox O2 Delivery O2 Flow Rate FiO2 07/03/17 15:09 75 18 134/78 96 07/03/17 13:26 96 17 145/75 96 Room Air 07/03/17 13:07 87 07/03/17 12:38 36.6 96 18 132/92 100 Room Air 07/03/17 12:35 98 Room Air 07/03/17 10:35 36.5 98 18 136/90 97 Room Air Physical Exam GENERAL: Patient is in no acute distress. HEENT: No acute trauma, normocephalic atraumatic, mucous membranes moist, no nasal congestion, no scleral icterus. NECK: No stridor, no adenopathy, no meningismus, trachea is midline. LUNGS: Clear to auscultation bilaterally, no wheeze, no rhonchi, breath sounds equal. HEART: Without murmurs gallops or rubs, regular rate and rhythm. ABDOMEN: Soft, nontender, bowel sounds positive, no hernias, no peritonitis. EXTREMITIES: No cyanosis or edema, full range of motion of all the joints without pain or difficulty, no signs for acute trauma. NEUROLOGIC: Oriented x 3, no acute motor or sensory deficits, no focal weakness. SKIN: No rash, no jaundice, no diaphoresis. Medical Decision & Procedures Laboratory Results 07/03/17 11:30 Red Blood Count 5.14, Mean Corpuscular Volume 88.1, Mean Corpuscular Hemoglobin 30.5, Mean Corpuscular Hemoglobin Concent 34.7, Mean Platelet Volume 10.5, Neutrophils (%) (Auto) 71.3, Lymphocytes (%) (Auto) 21.3, Monocytes (%) (Auto) 6.1, Eosinophils (%) (Auto) 0.9, Basophils (%) (Auto) 0.2, Neutrophils # (Auto) 5.80, Lymphocytes # (Auto) 1.74, Monocytes # (Auto) 0.50, Eosinophils # (Auto) 0.07, Basophils # (Auto) 0.02 07/03/17 11:30 Test 07/03/17 11:30 07/03/17 12:35 White Blood Count 8.15 K/uL (4.8-10.8) Red Blood Count 5.14 M/uL (4.2-5.4) Hemoglobin 15.7 g/dL (12.0-16.0) Hematocrit 45.3 % (37-47) Mean Corpuscular Volume 88.1 fL (80-100) Mean Corpuscular Hemoglobin 30.5 pg (25-34) Mean Corpuscular Hemoglobin Concent 34.7 g/dl (32-36) Platelet Count 291 K/uL (130-400) Mean Platelet Volume 10.5 fL (7.4-10.4) Neutrophils (%) (Auto) 71.3 % Lymphocytes (%) (Auto) 21.3 % Monocytes (%) (Auto) 6.1 % Eosinophils (%) (Auto) 0.9 % Basophils (%) (Auto) 0.2 % Neutrophils # (Auto) 5.80 K/uL (1.4-6.5) Lymphocytes # (Auto) 1.74 K/uL (1.2-3.4) Monocytes # (Auto) 0.50 K/uL (0.11-0.59) Eosinophils # (Auto) 0.07 K/uL (0-0.5) Basophils # (Auto) 0.02 K/uL (0-0.2) RDW Standard Deviation 39.8 fL (36.4-46.3) RDW Coefficient of Variation 12.4 % (11.5-14.5) Immature Granulocyte % (Auto) 0.2 % Immature Granulocyte # (Auto) 0.02 K/uL (0.00-0.02) Anion Gap 7.0 mmol/L (3-11) Est Creatinine Clear Calc Drug Dose 80.4 ml/min Estimated GFR () 105.7 Estimated GFR (Non- 91.2 BUN/Creatinine Ratio 20.7 (10-20) Calcium Level 9.7 mg/dl (8.5-10.1) Total Bilirubin 0.3 mg/dl (0.2-1) Aspartate Amino Transf (AST/SGOT) 12 U/L (15-37) Alanine Aminotransferase (ALT/SGPT) 23 U/L (12-78) Alkaline Phosphatase 51 U/L (45-117) Total Protein 8.0 gm/dl (6.4-8.2) Albumin 4.0 gm/dl (3.4-5.0) Globulin 4.0 gm/dl (2.5-4.0) Albumin/Globulin Ratio 1.0 (0.9-2) Influenza Type A Antigen Neg for Influ A (NEG) Influenza Type B Antigen Neg for Influ B (NEG) Laboratory results reviewed by me. Medications Administered Medications (Trade) Dose Ordered Sig/Gianfranco Route Start Time Stop Time Status Last Admin Dose Admin Sodium Chloride 1,000 ml @ 999 mls/hr Q1H1M STAT IV 07/03/17 11:43 07/03/17 12:43 DC 07/03/17 12:24 999 MLS/HR Prochlorperazine Edisylate (Compazine Inj) 10 mg NOW STAT IV 07/03/17 11:43 07/03/17 11:50 DC 07/03/17 12:31 10 MG Diphenhydramine HCl (Benadryl Inj) 50 mg NOW STAT IV 07/03/17 11:43 07/03/17 11:50 DC 07/03/17 12:27 50 MG Ketorolac Tromethamine (Toradol Inj) 30 mg NOW STAT IV 07/03/17 11:43 07/03/17 11:50 DC 07/03/17 12:30 30 MG Acetaminophen (Tylenol Tab) 1,000 mg NOW STAT PO 07/03/17 11:43 07/03/17 11:50 DC 07/03/17 12:26 1,000 MG ED Course 1143: The patient was evaluated in room D3B. A complete history and physical exam was performed. 1143: Ordered Tylenol 1000 mg PO, Toradol 30 mg IV, Benadryl 50 mg IV, Compazine 10 mg IV, Sodium Chloride 1000 mL @ 999 mL/hr IV. 1440: Reevaluated the patient. Discussed results and discharge instructions: She verbalized understanding and agreement. The patient is ready for discharge. Medical Decision Differential Diagnosis includes; food borne illness, viral illness, influenza, migraine headache, dehydration, electrolyte imbalance, UTI, meningitis, malaria. There is no leukocytosis or concerning anemia. No significant electrolyte abnormality, kidney failure or hepatitis. Influenza testing is negative. The patient had some small concerns for Malaria as she was in [place] late last year , I did order for a malaria smear, this result is pending. Of note, my suspicion for malaria as a cause for her symptoms is extremely small. The patient received IV saline, IV Compazine, IV Benadryl and IV Toradol. She was given oral Tylenol. She feels improved. The patient's had vomiting and diarrhea and a migraine. I suspect she has a viral illness which has triggered her migraine headache. She is improved and feels well, she is not toxic and I do think can be discharged home. Rest and hydration are being encouraged. Medication Reconcilliation Current Medication List: was personally reviewed by me Blood Pressure Screening Patient's blood pressure: Elevated blood pressure Blood pressure disposition: Elevated BP felt to be situational Impression Primary Impression: Headache Additional Impression: Diarrhea Scribe Attestation The scribe's documentation has been prepared under my direction and personally reviewed by me in its entirety. I confirm that the note above accurately reflects all work, treatment, procedures, and medical decision making performed by me. Departure Information Dispostion Home / Self-Care Referrals Ida Stacy M.D. (PCP) Forms HOME CARE DOCUMENTATION FORM, IMPORTANT VISIT INFORMATION Patient Instructions My [facility] Additional Instructions fluids rest otc pain meds return for worsening symptoms or if not improving immodium for diarrhea if it is persisting lab testing today was all ok off work the rest of this week Problem Qualifiers
[2017-07-03 11:59] LABS: BASO % 0.2 %; BASO ABS # 0.02 K/uL (0-0.2); EOS % 0.9 %; EOS ABS # 0.07 K/uL (0-0.5); HEMATOCRIT 45.3 % (37-47); HEMOGLOBIN 15.7 g/dL (12.0-16.0); IG# 0.02 K/uL (0.00-0.02); LYMPH % 21.3 %; LYMPH ABS # 1.74 K/uL (1.2-3.4); MEAN CELL VOLUME 88.1 fL (80-100); MEAN CORPUSCULAR HEMOGLOBIN 30.5 pg (25-34); MEAN CORPUSCULAR HGB CONC 34.7 g/dl (32-36); MEAN PLATELET VOLUME 10.5 fL (7.4-10.4); MONO % 6.1 %; NEUT % 71.3 %; PLATELET COUNT 291 K/uL (130-400); RED CELL DISTRIBUTION WIDTH CV 12.4 % (11.5-14.5); RED CELL DISTRIBUTION WIDTH SD 39.8 fL (36.4-46.3); WHITE BLOOD COUNT 8.15 K/uL (4.8-10.8)
[2017-07-03 12:10] LABS: CALCIUM 9.7 mg/dl (8.5-10.1); CREATININE 0.74 mg/dl (0.60-1.20); POTASSIUM 3.8 mmol/L (3.5-5.1)
[2017-07-03 12:35] VITALS: O2SAT 98
[2017-07-03 12:38] VITALS: TEMP 36.6
[2017-07-03] MEDS ORDERED: CALC600T9 PO (12:55)
[2017-07-03 13:58] LABS: INFLUENZA B ANTIGEN Neg for Influ B (NEG)
[2017-07-03 15:09] VITALS: BP 134/78; PULSE 75; O2SAT 96
== END 2017-07-03 15:10 | disposition home or self-care (01) ==
LOC: C.EDB 10:30 → C.EDD 15:10
DX: R51 Headache (principal); R19.7 Diarrhea, unspecified; R11.10 Vomiting, unspecified

== ENCOUNTER 2017-08-07 20:55 | Emergency (ER) | payer OTHER ==
[~2017-08-07] VITALS: Ht 167.6 cm; Wt 70.0 kg
[~2017-08-07 20:55] MED LIST changes: +ACET-1311 PO; +CALC600T9 PO; +PROM1SUP19 PR
[2017-08-07 21:13] VITALS: BP 151/94; PULSE 92; TEMP 36.4; O2SAT 98; Ht 167.6 cm; Wt 70.0 kg
== END 2017-08-07 21:50 | disposition left against medical advice (07) ==
LOC: C.EDB 20:57
DX: R51 Headache (principal)

== ENCOUNTER 2017-09-11 08:29 | Emergency (ER) | payer OTHER ==
[~2017-09-11] VITALS: Ht 167.6 cm; Wt 70.0 kg
[2017-09-11 08:31] VITALS: TEMP 36.4; Ht 167.6 cm; Wt 70.0 kg
[2017-09-11] MEDS ORDERED: ONDANSETRON INJ 2 MG/ML 2 ML VIAL IV STA (08:47)
[2017-09-11] MEDS ORDERED: Prednisone PO (08:47)
[2017-09-11] MEDS ORDERED: FLUT0.15 NAE (08:47)
[2017-09-11] MEDS ORDERED: IPRA0.03 NAE (08:47)
--- NOTE | 2017-09-11 09:00 | EMERGENCY ROOM VISIT NOTE ---
History First contact with patient: 08:36 Chief Complaint: ABDOMINAL PAIN Stated Complaint: ABDOMINAL PAIN Nursing Triage Summary: pt presents to ed with c/o rlq pain. pt woke up at 0500 with pain. pain has gotten progressively worse since 0500. pt c/o nausea. pt tender over rlq. pt denies any other symptoms. History of Present Illness The patient is a 57 year old female who presents to the Emergency Room via private vehicle with complaints of "abdominal pain". The patient states that she woke this morning around 5 AM with exquisite right lower quadrant abdominal pain she rates as a 5-6/10. She notes that it is worsening. It is worse with walking and taking steps. She also has associated nausea. Minimal cough. She denies any urinary symptoms, diarrhea or vomiting. Her past medical history significant for that of migraines. No abdominal surgeries in the past. No chest pain or shortness of breath. Review of Systems A complete 10-point Review of Systems was discussed with the patient, with pertinent positives and negatives listed in the History of Present Illness. All remaining Review of Systems questions can be considered negative unless otherwise specified. Past Medical/Surgical History Medical Problems: (1) Migraines Family History FH: cancer Social History Smoking Status: Never Smoker Alcohol Use: none Drug Use: none Marital Status: single Housing Status: lives with family Occupation Status: employed Current/Historical Medications Scheduled Calcium Carbonate-Vitamin D (Calcium + D), 1 TAB PO DAILY Fluticasone Propionate (Nasal) (Flonase Allergy Relief), 1 SPRAY AMARILYS BID Ipratropium [place] (Nasal) (Ipratropium [place]), 1 SPRAY [place] BID Scheduled PRN Acetaminophen (Tylenol), 650 MG PO UD PRN for Migraine Indomethacin (Indocin), 50 MG PO BID PRN for Migraine Promethazine (Phenergan Suppository), 25 MG [place] Q6H PRN for Nausea Zolmitriptan (Zomig), 1 SPRAY NA DIRECTED PRN for Migraine [Prednisone], 0 PO UD PRN for Migraine Allergies Coded Allergies: Latex1 -Allergic Contact Dermititis (Verified Allergy, Mild, RASH, 09/11/17 ) Physical Exam Vital Signs Date Time Temp Pulse Resp B/P (MAP) Pulse Ox O2 Delivery O2 Flow Rate FiO2 09/11/17 12:06 80 18 147/94 96 Room Air 09/11/17 11:05 84 18 130/90 99 Room Air 09/11/17 10:26 64 138/78 09/11/17 08:31 36.4 99 18 132/89 98 Room Air Physical Exam VITAL SIGNS - Vital signs and nursing notes were reviewed. Stable. GENERAL -57-year-old female appearing her stated age who is in no acute distress. Communicates well with provider and answers questions appropriately. SKIN - Without rashes. HEAD - NC/AT. EYES - PERRL with EOMI bilaterally. Sclera anicteric. EARS - No deformities of external structures noted on gross examination bilaterally. NOSE - Midline and without cyanosis. No epistaxis or purulent drainage noted. MOUTH/OROPHARYNX - Without perioral cyanosis. Buccal mucosa pink and moist and without leukoplakia. Tongue midline with equal elevation of palate bilaterally. No tonsillar hypertrophy, erythema, or exudates noted. Fair dentition noted. NECK - Neck with FROM. Supple to palpation. No lymphadenopathy noted. No nuchal rigidity. LUNGS - Chest wall symmetric without accessory muscle use, intercostals retractions, or central cyanosis. Normal vesicular breath sounds CTA B/L. No wheezes, rales, or rhonchi appreciated. CARDIAC - RRR with S1/S2. No murmur, rubs, or gallops appreciated. ABDOMEN - Abdominal contour normal without pulsations or visible masses. BS normoactive all four quadrants. Exquisite right lower quadrant abdominal tenderness. No palpable masses, hepatosplenomegaly, or ascites noted. EXTREMITIES - No clubbing or peripheral cyanosis. No pretibial edema present. +5 /5 strength noted in UE/LE bilaterally. NEUROLOGIC - Cranial nerves II through XII grossly intact. Sensory intact to light touch throughout. PSYCH - A&O, and cooperates fully with examiner. Pt is very pleasant and interacts well with examiner. Medical Decision & Procedures ER Provider Diagnostic Interpretation: CT ABD/PELVIS IV AND ORAL CONT CLINICAL HISTORY: RLQ abd pain, decreased appetite COMPARISON STUDY: 11/10/2014 TECHNIQUE: Following the IV administration of 93 mL of Optiray-320, CT scan of the abdomen and pelvis was performed from the lung bases to the proximal femurs. Images are reviewed in the axial, sagittal, and coronal planes. IV contrast was administered without complication. A dose lowering technique was utilized adhering to the principles of ALARA. CT DOSE: 437.49 mGy.cm FINDINGS: Lower chest: The heart is normal in size and configuration, without pericardial effusion. The lung bases and pleural spaces are clear. Liver: There is a 3 mm cyst within the left hepatic lobe. The liver is normal in size. The portal vein appears patent. Gallbladder: Unremarkable. Spleen: Normal in size and attenuation. Pancreas: Unremarkable. Adrenal glands: Unremarkable. Kidneys: There is symmetric renal cortical enhancement. The kidneys are normal in size without hydronephrosis. Bowel: There are no transition zones indicate bowel obstruction. The appendix appears normal. There is no acute diverticulitis. There is colonic fecal retention. There is mild prominence of proximal jejunal loops. This is of questionable clinical significance as there is no evidence of bowel obstruction, and the patient's symptoms are referred to the right lower quadrant Peritoneum: There is no intraperitoneal free air or abdominal ascites. Vasculature: The abdominal aorta is normal in course and caliber. Adenopathy: None. Pelvic viscera: The bladder, and pelvic viscera are unremarkable. Skeletal structures: No destructive osseous lesions are seen. IMPRESSION: 1. No evidence of bowel obstruction. No evidence of free air 2. Normal appendix. No evidence of acute diverticulitis 3. Fecal retention 4. Nonspecific prominence of the proximal jejunal loops. This finding is of questionable clinical significance given the lack of bowel obstruction, and the lack of symptoms referrable to this area. Electronically signed by: Harvinder Everett M.D. 09/11/2017 11:30 AM Dictated Date/Time: 09/11/2017 11:22 AM Laboratory Results 09/11/17 09:00 Red Blood Count 4.82, Mean Corpuscular Volume 86.9, Mean Corpuscular Hemoglobin 30.9, Mean Corpuscular Hemoglobin Concent 35.6, Mean Platelet Volume 9.8, Neutrophils (%) (Auto) 66.2, Lymphocytes (%) (Auto) 22.3, Monocytes (%) (Auto) 9.2, Eosinophils (%) (Auto) 1.7, Basophils (%) (Auto) 0.5, Neutrophils # (Auto) 5.81, Lymphocytes # (Auto) 1.96, Monocytes # (Auto) 0.81, Eosinophils # (Auto) 0.15, Basophils # (Auto) 0.04 09/11/17 09:00 Test 09/11/17 09:00 09/11/17 10:25 White Blood Count 8.78 K/uL (4.8-10.8) Red Blood Count 4.82 M/uL (4.2-5.4) Hemoglobin 14.9 g/dL (12.0-16.0) Hematocrit 41.9 % (37-47) Mean Corpuscular Volume 86.9 fL (80-100) Mean Corpuscular Hemoglobin 30.9 pg (25-34) Mean Corpuscular Hemoglobin Concent 35.6 g/dl (32-36) Platelet Count 262 K/uL (130-400) Mean Platelet Volume 9.8 fL (7.4-10.4) Neutrophils (%) (Auto) 66.2 % Lymphocytes (%) (Auto) 22.3 % Monocytes (%) (Auto) 9.2 % Eosinophils (%) (Auto) 1.7 % Basophils (%) (Auto) 0.5 % Neutrophils # (Auto) 5.81 K/uL (1.4-6.5) Lymphocytes # (Auto) 1.96 K/uL (1.2-3.4) Monocytes # (Auto) 0.81 K/uL (0.11-0.59) Eosinophils # (Auto) 0.15 K/uL (0-0.5) Basophils # (Auto) 0.04 K/uL (0-0.2) RDW Standard Deviation 39.2 fL (36.4-46.3) RDW Coefficient of Variation 12.3 % (11.5-14.5) Immature Granulocyte % (Auto) 0.1 % Immature Granulocyte # (Auto) 0.01 K/uL (0.00-0.02) Anion Gap 5.0 mmol/L (3-11) Est Creatinine Clear Calc Drug Dose 66.0 ml/min Estimated GFR () 84.0 Estimated GFR (Non- 72.5 BUN/Creatinine Ratio 24.0 (10-20) Calcium Level 9.2 mg/dl (8.5-10.1) Magnesium Level 2.3 mg/dl (1.8-2.4) Total Bilirubin 0.3 mg/dl (0.2-1) Aspartate Amino Transf (AST/SGOT) 11 U/L (15-37) Alanine Aminotransferase (ALT/SGPT) 19 U/L (12-78) Alkaline Phosphatase 58 U/L (45-117) Total Protein 7.9 gm/dl (6.4-8.2) Albumin 4.1 gm/dl (3.4-5.0) Globulin 3.8 gm/dl (2.5-4.0) Albumin/Globulin Ratio 1.1 (0.9-2) Lipase 173 U/L (73-393) Urine Color YELLOW Urine Appearance CLEAR (CLEAR) Urine pH 5.5 (4.5-7.5) Urine Specific [place] 1.013 (1.000-1.030) Urine Protein NEG (NEG) Urine Glucose (UA) NEG (NEG) Urine Ketones NEG (NEG) Urine Occult Blood NEG (NEG) Urine Nitrite NEG (NEG) Urine Bilirubin NEG (NEG) Urine Urobilinogen NEG (NEG) Urine Leukocyte Esterase TRACE (NEG) Urine WBC (Auto) 1-5 /hpf (0-5) Urine RBC (Auto) 0-4 /hpf (0-4) Urine Hyaline Casts (Auto) 1-5 /lpf (0-5) Urine Epithelial Cells (Auto) 20-30 /lpf (0-5) Urine Bacteria (Auto) NEG (NEG) Medications Administered Medications (Trade) Dose Ordered Sig/Gianfranco Route Start Time Stop Time Status Last Admin Dose Admin Ondansetron HCl (Zofran Inj) 4 mg NOW STAT IV 09/11/17 08:47 09/11/17 08:51 DC 09/11/17 09:01 4 MG Magnesium Citrate (Citrate Of Magnesia Soln) 148 ml NOW STAT PO 09/11/17 11:47 09/11/17 11:49 DC 09/11/17 12:03 148 ML Medical Decision Patient was seen and evaluated as above in room A2. She presents to us today with abdominal pain, worse in the right lower quadrant region. Review was performed of nursing notes and vital signs. After obtaining a thorough history and physical examination the above work up was performed. Using shared decision -making with the patient, we did elect to obtain a CT scan of the patient's abdomen and pelvis with the use of IV and oral contrast. She was drinking the contrast, baseline labs were obtained and review no concerning leukocytosis, or anemia. She does appear to be dehydrated. Elevated BUN and ratio. CT scan reveals fecal retention. She was given Zofran for nausea. She was given magnesium citrate. Case discussed with the attending physician. She is to follow with her family doctor or return with worsening. I did review the CT scan results with the patient as well as her blood work. The patient was educated upon management, had questions answered prior to discharge, and was discharged home in good condition. Case was discussed with the attending physician. In the evaluation and treatment of this patient the following differential diagnoses were entertained: Fecal retention, appendicitis, ovarian torsion, diverticulitis, C. difficile, acute cholecystitis, pancreatitis, gastroenteritis , among others. Impression Primary Impression: Abdominal pain Additional Impression: Fecal retention Departure Information Dispostion Home / Self-Care Condition GOOD Referrals Ida Stacy M.D. (PCP) Patient Instructions My [facility] Additional Instructions You have been treated in the Emergency Department your Abdominal Pain. Laboratory results and imaging studies have ruled out any emergent causes for your abdominal pain which would warrant admission or surgery. There is a large amount of retained stool. Please drink half a bottle of magnesium citrate when you return home and that if no bowel movement in 6 hours drink the rest. As we discussed this medication will cause a lot of stool in a short period of time so please be sure a bathroom is nearby. For pain control, you can use the following [id number] medicines: - Regular strength (325mg/tab) Tylenol (acetaminophen) 2 tabs every 4-6 hours as needed. Do not exceed 12 tablets in a 24 hour period. Avoid taking more than 3 grams (3000 mg) of Tylenol per day. This includes any other sources of acetaminophen you may take on a regular basis. - Regular strength (200 mg/tab) Advil (ibuprofen) 1-2 tabs every 4-6 hours as needed. Do not exceed a dose of 3200 mg per day. Drink plenty of water and stay well hydrated. As with any trip to the Emergency Department, you should follow-up with your Primary Care Provider from today's visit. Please return with any new/ concerning symptoms. Return to the emergency department if your symptoms persist despite treatment plan outlined above or if the following symptoms occur: increased fevers, chills , worsening nausea/vomiting, blood in your stool or urine. Problem Qualifiers Primary Impression: Abdominal pain Abdominal location: right lower quadrant Qualified Codes: R10.31 - Right lower quadrant pain
[2017-09-11 09:11] LABS: BASO % 0.5 %; BASO ABS # 0.04 K/uL (0-0.2); EOS % 1.7 %; EOS ABS # 0.15 K/uL (0-0.5); HEMATOCRIT 41.9 % (37-47); HEMOGLOBIN 14.9 g/dL (12.0-16.0); IG# 0.01 K/uL (0.00-0.02); LYMPH % 22.3 %; LYMPH ABS # 1.96 K/uL (1.2-3.4); MEAN CELL VOLUME 86.9 fL (80-100); MEAN CORPUSCULAR HEMOGLOBIN 30.9 pg (25-34); MEAN CORPUSCULAR HGB CONC 35.6 g/dl (32-36); MEAN PLATELET VOLUME 9.8 fL (7.4-10.4); MONO % 9.2 %; MONO ABS # 0.81 K/uL (0.11-0.59); NEUT % 66.2 %; NEUT ABS # 5.81 K/uL (1.4-6.5); PLATELET COUNT 262 K/uL (130-400); RED CELL DISTRIBUTION WIDTH CV 12.3 % (11.5-14.5); RED CELL DISTRIBUTION WIDTH SD 39.2 fL (36.4-46.3); WHITE BLOOD COUNT 8.78 K/uL (4.8-10.8)
[2017-09-11] MEDS ORDERED: OPTIRAY 320 IV PRN (09:15)
[2017-09-11 09:27] LABS: ALBUMIN 4.1 gm/dl (3.4-5.0); CALCIUM 9.2 mg/dl (8.5-10.1); CREATININE 0.89 mg/dl (0.60-1.20); POTASSIUM 4.2 mmol/L (3.5-5.1)
[2017-09-11 09:30] LABS: TOTAL PROTEIN 7.9 gm/dl (6.4-8.2)
--- NOTE | 2017-09-11 11:31 | DIAGNOSTIC IMAGING REPORT ---
CT ABD/PELVIS IV AND ORAL CONT CLINICAL HISTORY: RLQ abd pain, decreased appetite COMPARISON STUDY: 11/10/2014 TECHNIQUE: Following the IV administration of 93 mL of Optiray-320, CT scan of the abdomen and pelvis was performed from the lung bases to the proximal femurs. Images are reviewed in the axial, sagittal, and coronal planes. IV contrast was administered without complication. A dose lowering technique was utilized adhering to the principles of ALARA. CT DOSE: 437.49 mGy.cm FINDINGS: Lower chest: The heart is normal in size and configuration, without pericardial effusion. The lung bases and pleural spaces are clear. Liver: There is a 3 mm cyst within the left hepatic lobe. The liver is normal in size. The portal vein appears patent. Gallbladder: Unremarkable. Spleen: Normal in size and attenuation. Pancreas: Unremarkable. Adrenal glands: Unremarkable. Kidneys: There is symmetric renal cortical enhancement. The kidneys are normal in size without hydronephrosis. Bowel: There are no transition zones indicate bowel obstruction. The appendix appears normal. There is no acute diverticulitis. There is colonic fecal retention. There is mild prominence of proximal jejunal loops. This is of questionable clinical significance as there is no evidence of bowel obstruction, and the patient's symptoms are referred to the right lower quadrant Peritoneum: There is no intraperitoneal free air or abdominal ascites. Vasculature: The abdominal aorta is normal in course and caliber. Adenopathy: None. Pelvic viscera: The bladder, and pelvic viscera are unremarkable. Skeletal structures: No destructive osseous lesions are seen. IMPRESSION: 1. No evidence of bowel obstruction. No evidence of free air 2. Normal appendix. No evidence of acute diverticulitis 3. Fecal retention 4. Nonspecific prominence of the proximal jejunal loops. This finding is of questionable clinical significance given the lack of bowel obstruction, and the lack of symptoms referrable to this area. Electronically signed by: Harvinder Everett M.D. 09/11/2017 11:30 AM Dictated Date/Time: 09/11/2017 11:22 AM
[2017-09-11] MEDS ORDERED: MAGNESIUM CITRATE 296 ML/BTL PO STA (11:47)
[2017-09-11 12:06] VITALS: BP 147/94; PULSE 80; O2SAT 96
[2017-09-11] MEDS ORDERED: ACET-1256 PO (21:10)
[2017-09-11] MEDS ORDERED: POLY335019 PO (21:11)
[2017-09-11] MEDS ORDERED: MAGNSOL18 PO (21:11)
== END 2017-09-11 12:18 | disposition home or self-care (01) ==
LOC: C.EDB 08:30 → C.EDA 12:18
DX: R10.31 Right lower quadrant pain (principal); K59.00 Constipation, unspecified; Z91.040 Latex allergy status

== ENCOUNTER 2017-09-11 20:05 | Emergency (ER) | payer OTHER ==
[~2017-09-11] VITALS: Ht 167.6 cm; Wt 72.0 kg
[~2017-09-11 20:05] MED LIST changes: +FLUT0.15 NAE; +IPRA0.03 NAE; +Prednisone PO
[2017-09-11 20:11] VITALS: Ht 167.6 cm; Wt 72.0 kg
[2017-09-11] MEDS ORDERED: KETOROLAC TROMETHAMINE 30 MG/ML VIAL IV STA (21:00)
[2017-09-11] MEDS ORDERED: SODIUM CHLORIDE 0.9% 1000ML 1,000 ML IV STA (21:00)
[2017-09-11] MEDS ORDERED: PROCHLORPERAZINE 5 MG/ML 2 ML VIAL IV STA (21:00)
[2017-09-11] MEDS ORDERED: DiphenhydrAMINE HCL 50 MG/ML VIAL IV STA (21:00)
--- NOTE | 2017-09-11 21:07 | EMERGENCY ROOM VISIT NOTE ---
History Report prepared by Darnell: Hailey Salcedo Under the Supervision of: Dr. Adriana Pollard M.D. First contact with patient: 20:44 Chief Complaint: CONSTIPATION Stated Complaint: FECAL Nursing Triage Summary: patient was seen this am and diagnosed with constipation. she was given magcitrated and it did not work. she was unaware that it could take up to 12 hours to work. she called her Pcp and was told to take 4 miralax tabs/caps. still no stool. she feels worse and has a migraine starting at this time History of Present Illness The patient is a 57 year old female who presents to the Emergency Room with complaints of constant constipation since this morning. The patient reports that she has had significant abdominal pain this morning and woke up at 0500 from the pain. The patient states that she called her doctor who said that she may have appendicitis. The patient also reports having a headache right now and reports a history of migraines. She states that she does eat a lot of fruits and vegetables. The patient reports that she does fly long distances often but that she has not had a recent trip. She also states that she has been under a lot of stress lately as her mother is very ill. The patient was seen in the ED this morning for constipation and had a CT abd/ pelvis. Source of History: patient Onset: this morning Position: other (rectum) Quality: other (constipation ) Timing: constant Associated Symptoms: + headache, + abdominal pain Review of Systems See HPI for pertinent positives & negatives. A total of 10 systems reviewed and were otherwise negative. Past Medical & Surgical Medical Problems: (1) Migraines Family History FH: cancer Social History Smoking Status: Never Smoker Alcohol Use: none Drug Use: none Marital Status: single Housing Status: lives with family Occupation Status: employed Current/Historical Medications Scheduled Calcium Carbonate-Vitamin D (Calcium + D), 1 TAB PO DAILY Fluticasone Propionate (Nasal) (Flonase Allergy Relief), 1 SPRAY AMARILYS BID Ipratropium [place] (Nasal) (Ipratropium [place]), 1 SPRAY AMARILYS BID Scheduled PRN Acetaminophen (Tylenol), 500 MG PO for Headache Indomethacin (Indocin), 50 MG PO BID PRN for Migraine Magnesium Citrate (Citrate Of [place]), 1 BTL PO for Constipation Polyethylene Glycol 3350 (Miralax), 17 GM PO DAILY PRN for Constipation Promethazine (Phenergan Suppository), 25 MG [place] Q6H PRN for Nausea Zolmitriptan (Zomig), 1 SPRAY NA DIRECTED PRN for Migraine [Prednisone], 0 PO UD PRN for Migraine Allergies Coded Allergies: Latex1 -Allergic Contact Dermititis (Verified Allergy, Mild, RASH, 09/11/17 ) Physical Exam Vital Signs Date Time Temp Pulse Resp B/P (MAP) Pulse Ox O2 Delivery O2 Flow Rate FiO2 09/11/17 23:12 36.8 88 20 151/80 98 Room Air 09/11/17 22:02 94 09/11/17 21:53 88 20 124/74 98 Room Air 09/11/17 20:11 36.6 101 18 144/90 98 Room Air Physical Exam Vital signs reviewed. General: Well-appearing female, in no significant distress. HEENT: No scleral icterus, PERRLA, neck supple. Atraumatic. Cardiovascular: Regular rate and rhythm, no extra sounds. Pulmonary: Clear to auscultation bilaterally, normal work of breathing. Abdomen: Soft, right lower quadrant tenderness, some guarding, nondistended, positive bowel sounds. Musculoskeletal: Atraumatic, no peripheral edema. Neurologic: Patient awake alert and oriented x 3 Skin: Warm, dry, no rash Rectal: Normal mucosa. No stool palpated, no gross blood. Small external hemorrhoids. Medical Decision & Procedures Laboratory Results 09/11/17 21:41 Red Blood Count 4.51, Mean Corpuscular Volume 87.6, Mean Corpuscular Hemoglobin 30.4, Mean Corpuscular Hemoglobin Concent 34.7, Mean Platelet Volume 9.4, Neutrophils (%) (Auto) 58.2, Lymphocytes (%) (Auto) 30.5, Monocytes (%) (Auto) 9.1, Eosinophils (%) (Auto) 1.8, Basophils (%) (Auto) 0.2, Neutrophils # (Auto) 5.60, Lymphocytes # (Auto) 2.93, Monocytes # (Auto) 0.88, Eosinophils # (Auto) 0.17, Basophils # (Auto) 0.02 09/11/17 21:41 Test 09/11/17 21:41 White Blood Count 9.62 K/uL (4.8-10.8) Red Blood Count 4.51 M/uL (4.2-5.4) Hemoglobin 13.7 g/dL (12.0-16.0) Hematocrit 39.5 % (37-47) Mean Corpuscular Volume 87.6 fL (80-100) Mean Corpuscular Hemoglobin 30.4 pg (25-34) Mean Corpuscular Hemoglobin Concent 34.7 g/dl (32-36) Platelet Count 263 K/uL (130-400) Mean Platelet Volume 9.4 fL (7.4-10.4) Neutrophils (%) (Auto) 58.2 % Lymphocytes (%) (Auto) 30.5 % Monocytes (%) (Auto) 9.1 % Eosinophils (%) (Auto) 1.8 % Basophils (%) (Auto) 0.2 % Neutrophils # (Auto) 5.60 K/uL (1.4-6.5) Lymphocytes # (Auto) 2.93 K/uL (1.2-3.4) Monocytes # (Auto) 0.88 K/uL (0.11-0.59) Eosinophils # (Auto) 0.17 K/uL (0-0.5) Basophils # (Auto) 0.02 K/uL (0-0.2) RDW Standard Deviation 39.5 fL (36.4-46.3) RDW Coefficient of Variation 12.3 % (11.5-14.5) Immature Granulocyte % (Auto) 0.2 % Immature Granulocyte # (Auto) 0.02 K/uL (0.00-0.02) Anion Gap 6.0 mmol/L (3-11) Est Creatinine Clear Calc Drug Dose 78.8 ml/min Estimated GFR () 94.1 Estimated GFR (Non- 81.2 BUN/Creatinine Ratio 16.2 (10-20) Calcium Level 9.1 mg/dl (8.5-10.1) Total Bilirubin 0.3 mg/dl (0.2-1) Direct Bilirubin < 0.1 mg/dl (0-0.2) Aspartate Amino Transf (AST/SGOT) 12 U/L (15-37) Alanine Aminotransferase (ALT/SGPT) 19 U/L (12-78) Alkaline Phosphatase 52 U/L (45-117) Total Protein 7.7 gm/dl (6.4-8.2) Albumin 4.0 gm/dl (3.4-5.0) Laboratory results per my review. Medications Administered Medications (Trade) Dose Ordered Sig/Gianfranco Route Start Time Stop Time Status Last Admin Dose Admin Sodium Chloride 1,000 ml @ 999 mls/hr Q1H1M STAT IV 09/11/17 21:00 09/11/17 22:00 DC 09/11/17 21:49 999 MLS/HR Prochlorperazine Edisylate (Compazine Inj) 10 mg NOW STAT IV 09/11/17 21:00 09/11/17 21:04 DC 09/11/17 21:48 10 MG Diphenhydramine HCl (Benadryl Inj) 25 mg NOW STAT IV 09/11/17 21:00 09/11/17 21:04 DC 09/11/17 21:48 25 MG Ketorolac Tromethamine (Toradol Inj) 30 mg NOW STAT IV 09/11/17 21:00 09/11/17 21:04 DC 09/11/17 21:48 30 MG ED Course 2054: Past medical records reviewed. The patient was evaluated in room B12B. A complete history and physical examination was performed. 2100: Ordered Toradol Inj 30 mg IV, Benadryl Inj 25 mg IV, Compazine Inj 10 mg IV, Sodium Chloride 1,000 ml @ 999 mls/hr IV. 2106: I spoke to the radiologist who said that he can see the appendix clearly on the other CT and that there is not a need for a repeat CT as the appendix is normal. 2315: Upon reevaluation, the patient appeared to have improvement of her symptoms. I discussed findings with her. She verbalized agreement of the treatment plan. She was discharged home. Medical Decision Differential diagnosis: Etiologies such as appendicitis, diverticulitis, PUD, biliary pathology, UTI, pancreatitis, obstruction, mesenteric ischemia, aortic pathology, infections, inflammatory bowel disease, renal colic, as well as others were entertained. This patient was evaluated and appeared to be in no significant distress. Physical examination is concerning for tenderness of the right lower quadrant. Review of the patient's records reveals a CT scan performed earlier today with IV and oral contrast. Study is read as negative for acute appendicitis. I did review this study with the on-call radiologist, Dr. King. He again reiterates the normal appearing appendix several hours previous. IV access was obtained and laboratory work was drawn. The patient's WBC count has remained stable. There is no significant derangement in the liver function studies. Rectal exam reveals no significant stool retention. Patient was medicated with IV Compazine, IV Benadryl and IV Toradol. She did have significant improvement in her headache and abdominal pain. The patient is likely having diarrhea at this time secondary to the laxatives today. She was instructed to follow-up with her PCP this week for reevaluation and to return to the ED for fever, worsening abdominal pain or any medical concerns. Medication Reconcilliation Current Medication List: was personally reviewed by me Blood Pressure Screening Patient's blood pressure: Elevated blood pressure Blood pressure disposition: Elevated BP felt to be situational Impression Primary Impression: Constipation Additional Impression: Migraine Scribe Attestation The scribe's documentation has been prepared under my direction and personally reviewed by me in its entirety. I confirm that the note above accurately reflects all work, treatment, procedures, and medical decision making performed by me. Departure Information Dispostion Home / Self-Care Referrals Ida Stacy M.D. (PCP) Forms HOME CARE DOCUMENTATION FORM, IMPORTANT VISIT INFORMATION Patient Instructions My [facility] Additional Instructions Diagnosis: Constipation, migraine Ibuprofen 600 mg every 6 hours as needed for pain with food. Drink plenty of clear fluids. Continue your medications for migraines as needed. Follow-up with your physician tomorrow or return to the emergency department if symptoms persist. Return to the emergency department for worsening of symptoms or any medical concerns. Problem Qualifiers
[2017-09-11] MEDS ORDERED: ACET-1256 PO (21:10)
[2017-09-11] MEDS ORDERED: POLY335019 PO (21:11)
[2017-09-11] MEDS ORDERED: MAGNSOL18 PO (21:11)
[2017-09-11 21:54] LABS: BASO % 0.2 %; BASO ABS # 0.02 K/uL (0-0.2); EOS % 1.8 %; EOS ABS # 0.17 K/uL (0-0.5); HEMATOCRIT 39.5 % (37-47); HEMOGLOBIN 13.7 g/dL (12.0-16.0); IG# 0.02 K/uL (0.00-0.02); LYMPH % 30.5 %; LYMPH ABS # 2.93 K/uL (1.2-3.4); MEAN CELL VOLUME 87.6 fL (80-100); MEAN CORPUSCULAR HEMOGLOBIN 30.4 pg (25-34); MEAN CORPUSCULAR HGB CONC 34.7 g/dl (32-36); MEAN PLATELET VOLUME 9.4 fL (7.4-10.4); MONO % 9.1 %; MONO ABS # 0.88 K/uL (0.11-0.59); NEUT % 58.2 %; PLATELET COUNT 263 K/uL (130-400); RED CELL DISTRIBUTION WIDTH CV 12.3 % (11.5-14.5); RED CELL DISTRIBUTION WIDTH SD 39.5 fL (36.4-46.3); WHITE BLOOD COUNT 9.62 K/uL (4.8-10.8)
[2017-09-11 22:29] LABS: ALKALINE PHOSPHATASE 52 U/L (45-117); ALT/SGPT 19 U/L (12-78); AST/SGOT 12 U/L (15-37); BLOOD UREA NITROGEN 13 mg/dl (7-18); CALCIUM 9.1 mg/dl (8.5-10.1); CARBON DIOXIDE 29 mmol/L (21-32); CREATININE 0.81 mg/dl (0.60-1.20); GLUCOSE 85 mg/dl (70-99); SODIUM 137 mmol/L (136-145); TOTAL PROTEIN 7.7 gm/dl (6.4-8.2)
[2017-09-11 22:48] LABS: POTASSIUM 3.5 mmol/L (3.5-5.1)
[2017-09-11 23:12] VITALS: BP 151/80; PULSE 88; TEMP 36.8; O2SAT 98
== END 2017-09-11 23:16 | disposition home or self-care (01) ==
LOC: C.EDB 20:07
DX: K59.00 Constipation, unspecified (principal); G43.909 Migraine, unspecified, not intractable, without status migrainosus; Z91.040 Latex allergy status

== ENCOUNTER 2017-09-14 00:18 | Emergency (ER) | payer OTHER ==
[~2017-09-14] VITALS: Ht 167.6 cm; Wt 62.4 kg
[~2017-09-14 00:18] MED LIST changes: +ACET-1256 PO; -ACET-1311 PO; +MAGNSOL18 PO; +POLY335019 PO
[2017-09-14 00:21] VITALS: TEMP 36.5; Ht 167.6 cm; Wt 62.4 kg
[2017-09-14] MEDS ORDERED: KETOROLAC TROMETHAMINE 15 MG/ML VIAL IV STA (00:48)
[2017-09-14] MEDS ORDERED: SODIUM CHLORIDE 0.9% 1000ML 1,000 ML IV STA (00:48)
[2017-09-14 01:03] LABS: BASO % 0.3 %; BASO ABS # 0.03 K/uL (0-0.2); EOS % 2.6 %; EOS ABS # 0.24 K/uL (0-0.5); HEMATOCRIT 40.3 % (37-47); HEMOGLOBIN 14.1 g/dL (12.0-16.0); IG# 0.02 K/uL (0.00-0.02); LYMPH % 36.9 %; LYMPH ABS # 3.38 K/uL (1.2-3.4); MEAN CELL VOLUME 87.2 fL (80-100); MEAN CORPUSCULAR HEMOGLOBIN 30.5 pg (25-34); MEAN PLATELET VOLUME 9.5 fL (7.4-10.4); MONO % 9.3 %; MONO ABS # 0.85 K/uL (0.11-0.59); NEUT % 50.7 %; NEUT ABS # 4.63 K/uL (1.4-6.5); PLATELET COUNT 270 K/uL (130-400); RED CELL DISTRIBUTION WIDTH CV 12.1 % (11.5-14.5); RED CELL DISTRIBUTION WIDTH SD 38.7 fL (36.4-46.3); WHITE BLOOD COUNT 9.15 K/uL (4.8-10.8)
[2017-09-14 01:31] LABS: ALBUMIN 3.8 gm/dl (3.4-5.0); CALCIUM 9.5 mg/dl (8.5-10.1); CREATININE 0.89 mg/dl (0.60-1.20); POTASSIUM 3.8 mmol/L (3.5-5.1)
[2017-09-14 01:34] LABS: TOTAL PROTEIN 7.9 gm/dl (6.4-8.2)
--- NOTE | 2017-09-14 03:23 | EMERGENCY ROOM VISIT NOTE ---
History First contact with patient: 00:28 Chief Complaint: ABDOMINAL PAIN Stated Complaint: SEVERE ABDOMINAL PAIN Nursing Triage Summary: Pt reports she was here with abdominal pain and dx with constipation. Pt took Mag Citrate and stool softners. Pt continues to have right sided abdominal pain. History of Present Illness The patient is a 57 year old female who presents to the Emergency Room with complaints of right lower quadrant abdominal pain. The patient states that she was seen here 3 days ago after waking up with abdominal pain. She states the pain was in her right lower abdomen when she woke up. She was seen here and had a CT scan which showed fecal retention. She was discharged home and used magnesium citrate but did not have a bowel movement. She then took several doses of MiraLAX with Gatorade but still did not have a bowel movement. She returned here and states that she had "explosive diarrhea" while here. She was again discharged home and took a stool softener yesterday because the pain persisted. She thinks there may be a mucous plug stuck in her colon, causing her pain. She states that her pain worsened approximately 2 hours prior to arrival. She rates her current discomfort as 7-8/10 and has had intermittent stabbing, knifelike pains. The pain is worse when she is lying down. She has been increasing fluids. She denies nausea/vomiting or urinary symptoms. She does report she had one small bowel movement this morning. She denies any history of abdominal surgeries or ENGINEERING [employer]USTR[employer] issues. Review of Systems A complete 10 point review of systems was reviewed with the patient with pertinent positives and negatives as per history of present illness. All else were negative. Past Medical/Surgical History Medical Problems: (1) Migraines Family History FH: cancer Social History Smoking Status: Never Smoker Alcohol Use: none Drug Use: none Marital Status: single Housing Status: lives with family Occupation Status: employed Current/Historical Medications Scheduled Calcium Carbonate-Vitamin D (Calcium + D), 1 TAB PO DAILY Fluticasone Propionate (Nasal) (Flonase Allergy Relief), 1 SPRAY AMARILYS BID Ipratropium [place] (Nasal) (Ipratropium [place]), 1 SPRAY AMARILYS BID Scheduled PRN Acetaminophen (Tylenol), 500 MG PO for Headache Indomethacin (Indocin), 50 MG PO BID PRN for Migraine Magnesium Citrate (Citrate Of [place]), 1 BTL PO for Constipation Polyethylene Glycol 3350 (Miralax), 17 GM PO DAILY PRN for Constipation Promethazine (Phenergan Suppository), 25 MG [place] Q6H PRN for Nausea Zolmitriptan (Zomig), 1 SPRAY NA DIRECTED PRN for Migraine [Prednisone], 0 PO UD PRN for Migraine Physical Exam Vital Signs Date Time Temp Pulse Resp B/P (MAP) Pulse Ox O2 Delivery O2 Flow Rate FiO2 09/14/17 03:45 79 18 153/109 97 Room Air 09/14/17 02:14 80 16 139/81 100 Room Air 09/14/17 01:32 77 16 151/88 99 Room Air 09/14/17 00:21 36.5 96 18 156/88 98 Room Air Physical Exam VITALS: Vitals are noted on the nurse's note and reviewed by myself. Vital signs stable. GENERAL: This is a 57-year-old female, in no acute distress, nondiaphoretic, well-developed well-nourished. SKIN: The skin was without rashes. NECK: Supple without nuchal rigidity. HEART: Regular rate and rhythm without murmurs gallops or rubs. LUNGS: Clear to auscultation bilaterally without wheezes, rales or rhonchi. ABDOMEN: Positive bowel sounds x 4. Moderate tenderness to palpation of the right lower quadrant. Pain in the right lower quadrant is elicited with tenderness in the left lower quadrant. NEURO: Patient was alert and oriented to person place and time. Medical Decision & Procedures ER Provider Diagnostic Interpretation: US PELVIC/ENDOVAG: Complex free fluid in the pelvis was not seen on the recent CT scan. Consider CT follow-up. No endometrial or myometrial lesion is seen. Normal ovaries. Echogenic foci in the cervix are nonspecific. CT ABDOMEN & PELVIS With Contrast: No bowel obstruction or wall thickening Normal appendix No adnexal lesions Small amount of free fluid in the pelvis Radiologist: Jean-Paul Madrid MD Laboratory Results 09/14/17 00:55 Red Blood Count 4.62, Mean Corpuscular Volume 87.2, Mean Corpuscular Hemoglobin 30.5, Mean Corpuscular Hemoglobin Concent 35.0, Mean Platelet Volume 9.5, Neutrophils (%) (Auto) 50.7, Lymphocytes (%) (Auto) 36.9, Monocytes (%) (Auto) 9.3, Eosinophils (%) (Auto) 2.6, Basophils (%) (Auto) 0.3, Neutrophils # (Auto) 4.63, Lymphocytes # (Auto) 3.38, Monocytes # (Auto) 0.85, Eosinophils # (Auto) 0.24, Basophils # (Auto) 0.03 09/14/17 00:55 Test 09/14/17 00:55 09/14/17 02:20 White Blood Count 9.15 K/uL (4.8-10.8) Red Blood Count 4.62 M/uL (4.2-5.4) Hemoglobin 14.1 g/dL (12.0-16.0) Hematocrit 40.3 % (37-47) Mean Corpuscular Volume 87.2 fL (80-100) Mean Corpuscular Hemoglobin 30.5 pg (25-34) Mean Corpuscular Hemoglobin Concent 35.0 g/dl (32-36) Platelet Count 270 K/uL (130-400) Mean Platelet Volume 9.5 fL (7.4-10.4) Neutrophils (%) (Auto) 50.7 % Lymphocytes (%) (Auto) 36.9 % Monocytes (%) (Auto) 9.3 % Eosinophils (%) (Auto) 2.6 % Basophils (%) (Auto) 0.3 % Neutrophils # (Auto) 4.63 K/uL (1.4-6.5) Lymphocytes # (Auto) 3.38 K/uL (1.2-3.4) Monocytes # (Auto) 0.85 K/uL (0.11-0.59) Eosinophils # (Auto) 0.24 K/uL (0-0.5) Basophils # (Auto) 0.03 K/uL (0-0.2) RDW Standard Deviation 38.7 fL (36.4-46.3) RDW Coefficient of Variation 12.1 % (11.5-14.5) Immature Granulocyte % (Auto) 0.2 % Immature Granulocyte # (Auto) 0.02 K/uL (0.00-0.02) Anion Gap 3.0 mmol/L (3-11) Est Creatinine Clear Calc Drug Dose 66.0 ml/min Estimated GFR () 84.0 Estimated GFR (Non- 72.5 BUN/Creatinine Ratio 12.3 (10-20) Calcium Level 9.5 mg/dl (8.5-10.1) Total Bilirubin 0.3 mg/dl (0.2-1) Aspartate Amino Transf (AST/SGOT) 12 U/L (15-37) Alanine Aminotransferase (ALT/SGPT) 17 U/L (12-78) Alkaline Phosphatase 67 U/L (45-117) Total Protein 7.9 gm/dl (6.4-8.2) Albumin 3.8 gm/dl (3.4-5.0) Globulin 4.1 gm/dl (2.5-4.0) Albumin/Globulin Ratio 0.9 (0.9-2) Lipase 154 U/L (73-393) Urine Color YELLOW Urine Appearance CLEAR (CLEAR) Urine pH 6.0 (4.5-7.5) Urine Specific [place] 1.011 (1.000-1.030) Urine Protein NEG (NEG) Urine Glucose (UA) NEG (NEG) Urine Ketones NEG (NEG) Urine Occult Blood NEG (NEG) Urine Nitrite NEG (NEG) Urine Bilirubin NEG (NEG) Urine Urobilinogen NEG (NEG) Urine Leukocyte Esterase TRACE (NEG) Urine WBC (Auto) 1-5 /hpf (0-5) Urine RBC (Auto) 0-4 /hpf (0-4) Urine Hyaline Casts (Auto) 1-5 /lpf (0-5) Urine Epithelial Cells (Auto) 10-20 /lpf (0-5) Urine Bacteria (Auto) NEG (NEG) Medications Administered Medications (Trade) Dose Ordered Sig/Gianfranco Route Start Time Stop Time Status Last Admin Dose Admin Sodium Chloride 1,000 ml @ 999 mls/hr Q1H1M STAT IV 09/14/17 00:48 09/14/17 01:48 DC 09/14/17 01:00 999 MLS/HR Ketorolac Tromethamine (Toradol Inj) 15 mg NOW STAT IV 09/14/17 00:48 09/14/17 00:50 DC 09/14/17 01:00 15 MG ED Course The patient was evaluated as above. Labs were drawn and IV access was obtained. Patient was medicated with 15 mg Toradol IV. Pelvic ultrasound was performed and read by radiology as above. Patient was reevaluated and the findings were discussed. CT was ordered and performed. Discharge instructions were reviewed with the patient. The patient verbalized understanding of my assessment and treatment plan and was discharged home in good condition. Medical Decision Differential diagnosis includes appendicitis, colitis, gastroenteritis, bowel obstruction, constipation, UTI, ovarian cyst, ovarian torsion, ruptured ovarian cyst, among others. The patient is a 57-year-old female who presents today complaining of persistent right lower quadrant abdominal pain. Previous records were reviewed. The patient was seen here twice 3 days ago for abdominal pain. She initially had CT scan with IV and oral contrast which showed fecal retention but no other acute findings. She has been taking multiple laxatives at home and I feel this is contributing to her pain. She does have marked tenderness in the right lower quadrant. Labs revealed no leukocytosis, anemia or concerning electrolyte abnormalities. Urinalysis was not suggestive of infection. Pelvic ultrasound was initially performed. This does not show any evidence of ovarian lesion. Ultrasound note complex free fluid in the abdomen. They recommended CT scan and follow-up. CT with IV contrast was performed and also read by statrad with a small amount of pelvic free fluid and no other acute findings. This may be secondary to ruptured cyst. I did recommend that the patient stop taking all the laxatives as these are likely causing her increased discomfort. Conservative measures were discussed. She declined any pain medication other than Toradol while in the ER. I recommended very close follow-up with her primary care provider within 2-3 days for a recheck. The patient's case was reviewed with Dr. Mai, ED attending physician, who agreed with my assessment and treatment plan. Based on the patient's presentation and work up, I feel the patient is stable for outpatient treatment. The patient was educated to return to the emergency department for any worsening of their current condition or new/concerning symptoms. She will follow up with her PCP. Medication Reconcilliation Current Medication List: was personally reviewed by me Blood Pressure Screening Patient's blood pressure: Elevated blood pressure Blood pressure disposition: Elevated BP felt to be situational Impression Primary Impression: Right lower quadrant abdominal pain Departure Information Dispostion Home / Self-Care Condition FAIR Referrals Ida Stacy M.D. (PCP) Patient Instructions My [facility] Additional Instructions You have been treated in the Emergency Department for your Abdominal Pain. Laboratory results and imaging studies have ruled out any emergent causes for your abdominal pain which would warrant admission or surgery. For pain control, you can use the following [id number] medicines (if >12 yo): - Regular strength (325mg/tab) Tylenol (acetaminophen) 2 tabs every 4-6 hours as needed. Do not exceed 12 tablets in a 24 hour period. Avoid taking more than 4 grams (4000 mg) of Tylenol per day. This includes any other sources of acetaminophen you may take on a regular basis. - Regular strength (200 mg/tab) Advil (ibuprofen) 3-4 tabs every 6 hours as needed. Do not exceed a dose of 3200 mg per day. Drink plenty of water and stay well hydrated. As with any trip to the Emergency Department, you should follow-up with your Primary Care Provider from today's visit. Contact them first thing Friday morning to arrange follow up. Return to the emergency department if your symptoms persist despite treatment plan outlined above or if the following symptoms occur: fevers, chills, nausea/ vomiting, blood in your stool, or significantly worsening pain.
[2017-09-14 03:45] VITALS: BP 153/109; PULSE 79; O2SAT 97
[2017-09-14] MEDS ORDERED: OPTIRAY 320 IV PRN (03:45)
--- NOTE | 2017-09-14 08:02 | DIAGNOSTIC IMAGING REPORT ---
PELVIC ULTRASOUND, TRANSABDOMINAL AND TRANSVAGINAL HISTORY: right lower quadrant abdominal pain COMPARISON: Abdomen and pelvis CT 09/11/2017. FINDINGS: Uterus: Unremarkable. Echogenic foci within the cervical canal consistent with calcifications. Endometrial stripe: 3 mm in thickness. Right ovary: Normal in size and demonstrates normal color flow. Left ovary: Normal in size and demonstrates normal color flow. Miscellaneous:Small amount of complex free fluid. IMPRESSION: Small amount of complex free fluid in the pelvis. Otherwise, normal uterus and ovaries. Electronically signed by: Daniel Salazar M.D. 09/14/2017 8:00 AM Dictated Date/Time: 09/14/2017 7:59 AM
--- NOTE | 2017-09-14 09:13 | DIAGNOSTIC IMAGING REPORT ---
ABDOMEN AND PELVIS CT WITH IV CONTRAST CT DOSE: 458.49 mGy.cm HISTORY: Right lower quadrant abdominal pain. TECHNIQUE: Multiaxial CT images of the abdomen and pelvis were performed following the use of intravenous contrast. A dose lowering technique was utilized adhering to the principles of ALARA. COMPARISON STUDY: Abdomen and pelvis CT 09/11/2017. FINDINGS: Mild dependent changes seen at the lung bases. No pneumoperitoneum. No pneumatosis. There are few subcentimeter hypodense lesions within the left hepatic lobe, unchanged. These are too small to characterize. The gallbladder, spleen, kidneys, pancreas, right adrenal gland are unremarkable. Stable nodular thickening of the left adrenal gland measuring 9 mm. No retroperitoneal lymphadenopathy. The bladder, uterus, and adnexa are unremarkable. Trace pelvic free fluid. Moderate well-formed stool seen throughout the colon. No bowel wall thickening or obstruction. Normal appendix. IMPRESSION: 1. Trace pelvic free fluid. This may be physiologic. 2. No bowel wall thickening or obstruction. 3. Normal appendix. 4. Moderate well-formed stool seen within the colon. 5. Stable nodular thickening within the left adrenal gland dating back to the 2014 examination. Therefore, this favors a benign adenoma. Electronically signed by: Daniel Salazar M.D. 09/14/2017 9:12 AM Dictated Date/Time: 09/14/2017 9:08 AM
[2017-09-14] MEDS ORDERED: OXYC1TAB3 PO (23:29)
== END 2017-09-14 04:40 | disposition home or self-care (01) ==
LOC: C.EDB 00:19 → C.EDA 04:40
DX: R10.31 Right lower quadrant pain (principal)

== ENCOUNTER 2017-09-14 20:45 | Emergency (ER) | payer OTHER ==
[~2017-09-14] VITALS: Ht 167.6 cm; Wt 69.0 kg
[2017-09-14 20:52] VITALS: TEMP 36.7; Ht 167.6 cm; Wt 69.0 kg
[2017-09-14] MEDS ORDERED: ONDANSETRON INJ 2 MG/ML 2 ML VIAL IV STA (21:17)
[2017-09-14] MEDS ORDERED: KETOROLAC TROMETHAMINE 30 MG/ML VIAL IV STA (21:17)
[2017-09-14] MEDS ORDERED: MoRPHine SULFATE 4 MG/ML 1 ML CARP\\VIAL IV STA (21:17)
--- NOTE | 2017-09-14 21:28 | EMERGENCY ROOM VISIT NOTE ---
History Report prepared by Darnell: Maddison Gonzalez Under the Supervision of: Dr. Jesus Manuel Calloway M.D. First contact with patient: 21:03 Chief Complaint: ABDOMINAL PAIN Stated Complaint: EXTREME ABDOMINAL PAIN Nursing Triage Summary: Patient presents to triage via wheelchair, states "This is my 4th visit since morning. I have pain in my RLQ. They told me last night that I may have had an ovarian cyst that ruptured. I woke up this morning feeling a little bit better. Over the course of the day, the pain has gotten worse. I called my PCP twice today. They told me to come here again. I have a history of migraine headaches. I have an extremely high pain tolerance." History of Present Illness The patient is a 57 year old white female with a past medical history of migraine headaches and stomach problems who presents to the ED with a cc of abdominal pain beginning 3 days [employer]. Positive diarrhea. Negative urinary symptoms, hematochezia, or recent falls. She states she woke up 3 days ago and thought she had appendicitis. She states she called her PCP who told her to drink some magnesium citrate but 9 hours later, she had diarrhea. Yesterday around 0930, her pain had significantly worsened. She reports she was last seen at the ED last night where she had an ultrasound done which showed a lot of free fluid and was told she may have a potential ovarian cyst. The patient notes that sitting in specific positions and shallow breaths alleviates her pain. Source of History: patient Onset: 3 days [employer] Timing: worsening Modifying Factors (Relieving): other (sitting in specific positions and shallow breaths ) Associated Symptoms: + diarrhea, No hematochezia, No urinary symptoms Note: Negative recent falls. Review of Systems See HPI for pertinent positives and negatives. A total of ten systems were reviewed and were otherwise negative. Past Medical & Surgical Medical Problems: (1) Migraines (2) Stomach problems Stomach problems Family History FH: cancer Social History Smoking Status: Never Smoker Alcohol Use: none Drug Use: none Marital Status: single Housing Status: lives with family Occupation Status: employed Current/Historical Medications Scheduled Calcium Carbonate-Vitamin D (Calcium + D), 1 TAB PO DAILY Fluticasone Propionate (Nasal) (Flonase Allergy Relief), 1 SPRAY AMARILYS DAILY Ipratropium Henderson (Nasal) (Ipratropium Henderson), 1 SPRAY AMARILYS DAILY Scheduled PRN Acetaminophen (Tylenol), 500 MG PO for Headache Indomethacin (Indocin), 50 MG PO BID PRN for Migraine Oxycodone Immediate Rel Tab (Roxicodone Ir), 5 MG PO Q6H PRN for Pain Promethazine (Phenergan Suppository), 25 MG AR Q6H PRN for Nausea Zolmitriptan (Zomig), 1 SPRAY NA DIRECTED PRN for Migraine [Prednisone], 0 PO UD PRN for Migraine Allergies Coded Allergies: Latex1 -Allergic Contact Dermititis (Verified Allergy, Mild, RASH, 09/14/17 ) Physical Exam Vital Signs Date Time Temp Pulse Resp B/P (MAP) Pulse Ox O2 Delivery O2 Flow Rate FiO2 09/15/17 00:01 74 16 152/89 99 09/14/17 22:37 67 20 115/76 98 Room Air 09/14/17 20:52 36.7 101 20 144/86 98 Room Air Physical Exam GENERAL: Awake, alert, well-appearing, NAD. Wearing glasses. HENT: Normocephalic, atraumatic. EYES: Normal conjunctiva. Sclera non-icteric. PERRL. No anisocoria. NECK: Supple. No nuchal rigidity. FROM. RESPIRATORY: CTAB, no rhonchi, wheezing, crackles CARDIAC: RRR, no MRG ABDOMEN: Soft, NTND, BS+. Diffuse abdominal discomfort with localization to the RLQ. Negative obturators negative psoas. BACK: No CVA TTP MSK: No chest wall TTP, no LE edema. No hip or thigh pain. NEURO: GCS 15, CN 2-12 intact, moves all 4s on command SKIN: No rash or jaundice noted. No skin changes present over abdomen. Medical Decision & Procedures ER Provider Diagnostic Interpretation: Radiology results as stated below per my review and radiologist interpretation: CHEST ONE VIEW PORTABLE HISTORY: Generalized abdominal pain. COMPARISON: Chest 02/28/2014. FINDINGS: No pneumothorax. No pleural effusions. No focal lung consolidations to suggest pneumonia. No evidence for pulmonary edema. The heart is normal in size. A few linear densities left lung base favor subsegmental atelectasis. IMPRESSION: No acute process. Electronically signed by: Daniel Salazar M.D. 09/14/2017 9:40 PM Dictated Date/Time: 09/14/2017 9:39 PM Laboratory Results 09/14/17 21:43 Red Blood Count 4.52, Mean Corpuscular Volume 87.4, Mean Corpuscular Hemoglobin 30.5, Mean Corpuscular Hemoglobin Concent 34.9, Mean Platelet Volume 9.9, Neutrophils (%) (Auto) 56.4, Lymphocytes (%) (Auto) 29.8, Monocytes (%) (Auto) 10.0, Eosinophils (%) (Auto) 2.9, Basophils (%) (Auto) 0.8, Neutrophils # (Auto ) 4.29, Lymphocytes # (Auto) 2.27, Monocytes # (Auto) 0.76, Eosinophils # (Auto ) 0.22, Basophils # (Auto) 0.06 09/14/17 21:43 Test 09/14/17 21:43 09/14/17 22:00 White Blood Count 7.61 K/uL (4.8-10.8) Red Blood Count 4.52 M/uL (4.2-5.4) Hemoglobin 13.8 g/dL (12.0-16.0) Hematocrit 39.5 % (37-47) Mean Corpuscular Volume 87.4 fL (80-100) Mean Corpuscular Hemoglobin 30.5 pg (25-34) Mean Corpuscular Hemoglobin Concent 34.9 g/dl (32-36) Platelet Count 272 K/uL (130-400) Mean Platelet Volume 9.9 fL (7.4-10.4) Neutrophils (%) (Auto) 56.4 % Lymphocytes (%) (Auto) 29.8 % Monocytes (%) (Auto) 10.0 % Eosinophils (%) (Auto) 2.9 % Basophils (%) (Auto) 0.8 % Neutrophils # (Auto) 4.29 K/uL (1.4-6.5) Lymphocytes # (Auto) 2.27 K/uL (1.2-3.4) Monocytes # (Auto) 0.76 K/uL (0.11-0.59) Eosinophils # (Auto) 0.22 K/uL (0-0.5) Basophils # (Auto) 0.06 K/uL (0-0.2) RDW Standard Deviation 38.8 fL (36.4-46.3) RDW Coefficient of Variation 12.2 % (11.5-14.5) Immature Granulocyte % (Auto) 0.1 % Immature Granulocyte # (Auto) 0.01 K/uL (0.00-0.02) Anion Gap 7.0 mmol/L (3-11) Est Creatinine Clear Calc Drug Dose 72.6 ml/min Estimated GFR () 94.1 Estimated GFR (Non- 81.2 BUN/Creatinine Ratio 15.7 (10-20) Calcium Level 9.1 mg/dl (8.5-10.1) Total Bilirubin 0.2 mg/dl (0.2-1) Direct Bilirubin < 0.1 mg/dl (0-0.2) Aspartate Amino Transf (AST/SGOT) 17 U/L (15-37) Alanine Aminotransferase (ALT/SGPT) 18 U/L (12-78) Alkaline Phosphatase 62 U/L (45-117) Troponin I < 0.015 ng/ml (0-0.045) Total Protein 7.3 gm/dl (6.4-8.2) Albumin 3.5 gm/dl (3.4-5.0) Lipase 148 U/L (73-393) Human Chorionic Gonadotropin, Qual NEG (NEG) Urine Color YELLOW Urine Appearance ERROR (CLEAR) Urine pH 5.0 (4.5-7.5) Urine Specific Madison 1.012 (1.000-1.030) Urine Protein NEG (NEG) Urine Glucose (UA) NEG (NEG) Urine Ketones NEG (NEG) Urine Occult Blood NEG (NEG) Urine Nitrite NEG (NEG) Urine Bilirubin NEG (NEG) Urine Urobilinogen NEG (NEG) Urine Leukocyte Esterase LARGE (NEG) Urine WBC (Auto) 10-30 /hpf (0-5) Urine RBC (Auto) 0-4 /hpf (0-4) Urine Hyaline Casts (Auto) 1-5 /lpf (0-5) Urine Epithelial Cells (Auto) >30 /lpf (0-5) Urine Bacteria (Auto) NEG (NEG) Laboratory results reviewed by me Medications Administered Medications (Trade) Dose Ordered Sig/Gianfranco Route Start Time Stop Time Status Last Admin Dose Admin Ondansetron HCl (Zofran Inj) 4 mg NOW STAT IV 09/14/17 21:17 09/14/17 21:18 DC 09/14/17 21:48 4 MG Ketorolac Tromethamine (Toradol Inj) 30 mg NOW STAT IV 09/14/17 21:17 09/14/17 21:18 DC 09/14/17 21:48 30 MG Morphine Sulfate (MoRPHine SULFATE INJ) 4 mg NOW STAT IV 09/14/17 21:17 09/14/17 21:18 DC 09/14/17 21:48 4 MG ECG Per My Interpretation Indication: abdominal pain Rate (beats per minute): 81 Rhythm: normal sinus Findings: T-wave inversion (Lead AVL), other (normal intervals, normal axis) ED Course 2115: The patient was evaluated in room C2. A complete history and physical exam was performed. 2116: Ordered Morphine Sulfate 4 mg IV, Toradol Inj 30 mg IV, Zofran Inj 4 mg IV 2304: I reevaluated the patient. Discussed results and discharge instructions: She verbalized understanding and agreement. The patient is ready for discharge. Medical Decision The patient is a 57 year old white female with a past medical history of migraine headaches who presents to the ED with a cc of abdominal pain beginning 3 days [employer]. Positive diarrhea. Negative urinary symptoms, hematochezia, or recent falls. Differential diagnosis: Etiologies such as appendicitis, diverticulitis, PUD, biliary pathology, UTI, pancreatitis, obstruction, mesenteric ischemia, aortic pathology, infections, inflammatory bowel disease, renal colic, as well as others were entertained. Patient was seen and evaluated the bedside. Patient was presented with worsening abdominal pain. Patient noted to have persistent abdominal discomfort primarily in the right lower quadrant. The patient has been seen several times for this discomfort. Most recently she was seen yesterday. Patient did have blood work completed along with a urinalysis CT of the abdomen pelvis and transvaginal ultrasound. The imaging studies were fairly unremarkable with the exception of complex free fluid which may be physiologic. There was no evidence of any torsion or ovarian cyst. There was discussion that this may be related to hemorrhagic or ovarian cyst rupture. The patient's blood work was fairly unremarkable also. Patient did have blood work completed and the patient was given medication for symptom control. Patient's blood work was again very unremarkable. Fairly unchanged from prior. We did discuss that given her recent negative studies that we would not repeat them given that there is not much variation in her blood work. Patient did feel improved. We did discuss the possibility of shingles, and her neuropathic pain or nerve pain as well as musculoskeletal discomfort. Patient was advised to continue take medications and to follow-up with her PCP and discuss possible referral to GI, neurology, and/or pain management. Patient was deemed suitable for outpatient follow-up and treatment at this time. Patient was given strict follow-up, discharge, and return precautions. All questions were answered. Patient was deemed suitable for outpatient follow-up at this time. Patient agreed with the plan of care and was safely discharged home. Medication Reconcilliation Current Medication List: was personally reviewed by me Blood Pressure Screening Patient's blood pressure: Elevated blood pressure Blood pressure disposition: Elevated BP felt to be situational Impression Primary Impression: Right lower quadrant abdominal pain Scribe Attestation The scribe's documentation has been prepared under my direction and personally reviewed by me in its entirety. I confirm that the note above accurately reflects all work, treatment, procedures, and medical decision making performed by me. Departure Information Dispostion Home / Self-Care Prescriptions Oxycodone Immediate Rel Tab (ROXICODONE IR) 5 Mg Tab 5 MG PO Q6H Y for Pain, #12 TAB Prov: Jesus Manuel Calloway M.D. 09/14/17 Referrals Ida Stacy M.D. (PCP) Patient Instructions Abdominal Pain, My [facility] Additional Instructions Please return to the emergency department if you have worsening or recurrent symptoms not amenable to at-home treatment. Please call for a follow-up appointment with her primary care physician. Please take your medications as prescribed. If you have other concerns and/or complaints please feel free to also call your primary care physician's office or return the ED for further evaluation, management, and treatment. You received narcotic or benzodiazepene medication while in the emergency room today. This is an addictive medication that may cause drowziness as well as constipation. Do not drive, operate heavy machinery, or drink alcohol under the influence of this medication. You may take 800 mg Ibuprofen every 6 hours as needed for pain/fever with food unless told by your physician not to take NSAIDs. You may take tylenol 1000 mg every 6 hours as needed for pain/fever unless told by your physician to not take it or have liver problems. You may take motrin and tylenol separately or at the same time. If you still have discomfort you may take the narcotic medication. Please be advised that these medications are habit forming, can make you sleepy, and can cause breathing issues. Do not use if you require your full attention. Take only as prescribed. Take your medications as prescribed. You have been examined and treated today on an emergency basis only. This is not a substitute for, or an effort to provide, complete comprehensive medical care. It is impossible to recognize and treat all injuries or illnesses in a single emergency department visit. It is therefore important that you follow up closely with [facility], your PCP, and/or your specialist(s). Call as soon as possible for an appointment. Thank you for your time and consideration. I look forward to speaking with you again soon. Please don't hesitate to call us if you have any questions.
--- NOTE | 2017-09-14 21:42 | DIAGNOSTIC IMAGING REPORT ---
CHEST ONE VIEW PORTABLE HISTORY: Generalized abdominal pain. COMPARISON: Chest 02/28/2014. FINDINGS: No pneumothorax. No pleural effusions. No focal lung consolidations to suggest pneumonia. No evidence for pulmonary edema. The heart is normal in size. A few linear densities left lung base favor subsegmental atelectasis. IMPRESSION: No acute process. Electronically signed by: Daniel Salazar M.D. 09/14/2017 9:40 PM Dictated Date/Time: 09/14/2017 9:39 PM
[2017-09-14 22:06] LABS: BASO % 0.8 %; BASO ABS # 0.06 K/uL (0-0.2); EOS % 2.9 %; EOS ABS # 0.22 K/uL (0-0.5); HEMATOCRIT 39.5 % (37-47); HEMOGLOBIN 13.8 g/dL (12.0-16.0); IG# 0.01 K/uL (0.00-0.02); LYMPH % 29.8 %; LYMPH ABS # 2.27 K/uL (1.2-3.4); MEAN CELL VOLUME 87.4 fL (80-100); MEAN CORPUSCULAR HEMOGLOBIN 30.5 pg (25-34); MEAN CORPUSCULAR HGB CONC 34.9 g/dl (32-36); MEAN PLATELET VOLUME 9.9 fL (7.4-10.4); MONO ABS # 0.76 K/uL (0.11-0.59); NEUT % 56.4 %; NEUT ABS # 4.29 K/uL (1.4-6.5); PLATELET COUNT 272 K/uL (130-400); RED CELL DISTRIBUTION WIDTH CV 12.2 % (11.5-14.5); RED CELL DISTRIBUTION WIDTH SD 38.8 fL (36.4-46.3); WHITE BLOOD COUNT 7.61 K/uL (4.8-10.8)
[2017-09-14 22:17] LABS: ALBUMIN 3.5 gm/dl (3.4-5.0); ALT/SGPT 18 U/L (12-78); AST/SGOT 17 U/L (15-37); BLOOD UREA NITROGEN 13 mg/dl (7-18); CALCIUM 9.1 mg/dl (8.5-10.1); CARBON DIOXIDE 24 mmol/L (21-32); CREATININE 0.81 mg/dl (0.60-1.20); GLUCOSE 106 mg/dl (70-99); LIPASE 148 U/L (73-393); POTASSIUM 4.2 mmol/L (3.5-5.1); SODIUM 140 mmol/L (136-145)
[2017-09-14 22:22] LABS: ALKALINE PHOSPHATASE 62 U/L (45-117); TOTAL PROTEIN 7.3 gm/dl (6.4-8.2)
[2017-09-14] MEDS ORDERED: OXYC1TAB3 PO (23:29)
[2017-09-15 00:01] VITALS: BP 152/89; PULSE 74; O2SAT 99
== END 2017-09-15 00:02 | disposition home or self-care (01) ==
LOC: C.EDB 20:45 → C.EDC 09-15 00:02
DX: R10.31 Right lower quadrant pain (principal); R19.7 Diarrhea, unspecified; Z79.899 Other long term (current) drug therapy

== ENCOUNTER → 2017-09-22 | Outpatient (CLI) | payer OTHER ==
[~2017-09-22] MED LIST changes: -MAGNSOL18 PO; +OXYC1TAB3 PO; -POLY335019 PO
--- NOTE | 2017-09-22 10:14 | DIAGNOSTIC IMAGING REPORT ---
ABDOMEN COMPLETE (US) CLINICAL HISTORY: 57 years-old Female presenting with DIFFUSE ABDOMINAL PAIN, right lower quadrant pain. TECHNIQUE: Real-time grayscale and limited color Doppler ultrasound imaging of the abdomen was performed. COMPARISON: CT from 09/14/2017. FINDINGS: Pancreas: Visualized portions of the pancreatic head and body normal. Liver: Normal echogenicity and echotexture. No sonographic evidence of hepatic mass. Main portal vein patent with normal directional flow. Biliary: No intrahepatic biliary ductal dilatation. Common bile duct measures up to 3 mm in diameter. Gallbladder: No evidence of gallstones, gallbladder wall thickening, gallbladder distention, or pericholecystic fluid or inflammatory change. Spleen: Normal in echogenicity and size, measuring 9.2 cm in length. Kidneys: Normal in size and echogenicity. No hydronephrosis. Vasculature: Visualized portions of the IVC and abdominal aorta normal. Ascites: None. Other: At the site of clinical interest in the right lower quadrant, no sonographic abnormality is evident allowing for near complete obscuration with bowel gas. IMPRESSION: 1. No sonographic evidence of acute intra-abdominal pathology. No cholelithiasis or biliary duct dilatation. 2. No sonographic abnormality in the right lower quadrant allowing for near-complete obscuration with bowel gas. Electronically signed by: Dustin Garsia M.D. 09/22/2017 10:13 AM Dictated Date/Time: 09/22/2017 10:06 AM
== END | disposition home or self-care (01) ==
LOC: C.ULTR 09:24
PROVIDERS: ATTEND Family Medicine
DX: R10.31 Right lower quadrant pain (principal)

== ENCOUNTER 2017-12-15 16:19 | Emergency (ER) | payer OTHER ==
[~2017-12-15] VITALS: Ht 167.6 cm; Wt 62.6 kg
[~2017-12-15 16:19] MED LIST changes: +OXYC-737 PO; -OXYC1TAB3 PO
[2017-12-15 16:27] VITALS: TEMP 36.7; Ht 167.6 cm; Wt 62.6 kg
[2017-12-15] MEDS ORDERED: SODIUM CHLORIDE 0.9% 1000ML 1,000 ML IV STA (16:39)
[2017-12-15] MEDS ORDERED: DiphenhydrAMINE HCL 50 MG/ML VIAL IV STA (16:39)
[2017-12-15] MEDS ORDERED: PROCHLORPERAZINE 5 MG/ML 2 ML VIAL IV STA (16:39)
[2017-12-15] MEDS ORDERED: VALPROATE SOD IV 500 MG in DEXTROSE 5% 50ML 50 ML IV STA (17:28)
[2017-12-15] MEDS ORDERED: DEXAMETHASONE INJ 10 MG in SYRINGE 0 ML IV STA (17:28)
[2017-12-15 18:16] VITALS: BP 129/75; PULSE 87; O2SAT 100
--- NOTE | 2017-12-15 21:49 | EMERGENCY ROOM VISIT NOTE ---
History Report prepared by Orlandoibkeya: Azeb Gilbert Under the Supervision of: Dr. Ryan Wright M.D. First contact with patient: 16:30 Chief Complaint: HEADACHE Stated Complaint: MIGRAINE History of Present Illness The patient is a 57 year old female who presents to the Emergency Room with complaints of a headache. She reports she was scheduled to have a colonoscopy today and was supposed to refrain from eating or drinking for 24 hours. As she was taken to postop, she started experiencing a "severe migraine headache", which she rates as a 7/10 in severity. Exposure to light worsens her pain. She has been nauseous but has not vomited, only "dry heaved". She admits to a history of migraine headaches and states when she has a migraine, she is " unable to control her emotions". Source of History: patient Onset: [employer]PUT[employer] EXAMINER Position: head Symptom Intensity: 7/10 Timing: other (persistent) Modifying Factors (Worsening): other (exposure to light) Associated Symptoms: + nausea, No vomiting Review of Systems See HPI for pertinent positives and negatives. A total of ten systems were reviewed and were otherwise negative. Past Medical & Surgical Medical Problems: (1) Migraines (2) Stomach problems Family History FH: cancer Social History Smoking Status: Never Smoker Alcohol Use: none Drug Use: none Marital Status: single Housing Status: lives with family Occupation Status: employed Current/Historical Medications Scheduled Calcium Carbonate-Vitamin D (Calcium + D), 1 TAB PO DAILY Allergies Coded Allergies: Latex1 -Allergic Contact Dermititis (Verified Allergy, Mild, RASH, 12/15/17 ) Physical Exam Vital Signs Date Time Temp Pulse Resp B/P (MAP) Pulse Ox O2 Delivery O2 Flow Rate FiO2 12/15/17 18:16 87 16 129/75 100 Room Air 12/15/17 16:36 88 12/15/17 16:27 36.7 79 18 149/78 100 Room Air Physical Exam GENERAL: Awake, alert, grabbing her head in darkened room, well-appearing, in no distress HENT: Normocephalic, atraumatic. Oropharynx unremarkable. EYES: Normal conjunctiva. Sclera non-icteric. NECK: Supple. No nuchal rigidity. RESPIRATORY: Clear to auscultation. No wheezes. Normal respiratory effort. CARDIAC: Normal rate. Normal rhythm. Extremities warm and well perfused. GI: Soft, non-distended. No tenderness to palpation. No rebound or guarding. No masses. RECTAL: Deferred. MUSCULOSKELETAL: Atraumatic. Chest examination reveals no tenderness. There is no CVA tenderness to palpation. LOWER EXTREMITIES: Calves are equal size bilaterally and non-tender. No edema NEURO: Normal sensorium. No sensory or motor deficits noted. No facial droop. SKIN: Warm and dry. No rash or jaundice noted. Medical Decision & Procedures Medications Administered Medications (Trade) Dose Ordered Sig/Gianfranco Route Start Time Stop Time Status Last Admin Dose Admin Prochlorperazine Edisylate (Compazine Inj) 10 mg NOW STAT IV 12/15/17 16:39 12/15/17 16:40 DC 12/15/17 16:50 10 MG Sodium Chloride 1,000 ml @ 999 mls/hr Q1H1M STAT IV 12/15/17 16:39 12/15/17 17:39 DC 12/15/17 16:50 999 MLS/HR Diphenhydramine HCl (Benadryl Inj) 25 mg NOW STAT IV 12/15/17 16:39 12/15/17 16:40 DC 12/15/17 16:50 25 MG ED Course 1634: The patient was evaluated in room A11. A complete history and physical exam was performed. 1639: Benadryl 25 mg IV, NSS 1000 ml @ 999 mls/hr IV, Compazine 10 mg IV. 1820: I reevaluated the patient. She is feeling well and is ready to go home. I discussed her results and discharge instructions and she verbalized complete understanding and agreement. Medical Decision Triage Nursing notes reviewed. The patient's presentation and history were concerning for migraine headache. Differential diagnosis: Etiologies such as migraine headache, meningitis, sinusitis, CO exposure, ICH, SAH, infection, tumor, headache, sinus thrombosis, arterial dissection, as well as others were entertained. Patient presents with onset of migrated day while getting ready go home after colonoscopy. She thinks not eating today prior to the procedure precipitated this. Severe diffuse head pain. Doubt SAH. Doubt infection. Received Toradol at the outside facility with Zofran without significant improvement. Sensitive to light. Nauseous. No trauma. No complaint of chest or abdominal pain; doubt complication from colonoscopy. No numbness elsewhere. Treated for some traumatic migraine with Compazine and Benadryl here in addition IV fluid. Son endorses her normal headache. Improved after this occasion and deferred additional steroids and valproic acid. She states that she felt better and wanted to leave. Recommend she continue follow-up with her outpatient GI doctor for information from her endoscopy results. Discussed return criteria. Stable for discharge. Medication Reconcilliation Current Medication List: was personally reviewed by me Blood Pressure Screening Patient's blood pressure: Elevated blood pressure Blood pressure disposition: Elevated BP felt to be situational Impression Primary Impression: Migraine Scribe Attestation The scribe's documentation has been prepared under my direction and personally reviewed by me in its entirety. I confirm that the note above accurately reflects all work, treatment, procedures, and medical decision making performed by me. Departure Information Dispostion Home / Self-Care Referrals No Doctor, Assigned (PCP) Patient Instructions My [facility] Additional Instructions Please continue to have established outpatient follow-up with your GI doctor for the results of your colonoscopy today. If at any time you have new concerns please feel free to return here for reevaluation. Please continue to maintain good hydration at home. Problem Qualifiers Primary Impression: Migraine Migraine type: unspecified Status migrainosus presence: without status migrainosus Intractability: not intractable Qualified Codes: G43.909 - Migraine, unspecified, not intractable, without status migrainosus
== END 2017-12-15 18:31 | disposition home or self-care (01) ==
LOC: EDBD 16:19 → C.EDA 16:20
DX: G43.909 Migraine, unspecified, not intractable, without status migrainosus (principal); Z91.040 Latex allergy status

== ENCOUNTER → 2017-12-18 | Outpatient (CLI) | payer OTHER ==
[~2017-12-18] MED LIST changes: -ACET-1256 PO; -FLUT0.15 NAE; +GADOXETATE DISODIUM (NON-WT BASED PROCEDURE) IV PRN; -INDO-24 PO; -IPRA0.03 NAE; -OXYC-737 PO; -PROM1SUP19 PR; -Prednisone PO; -ZOLM5SPR
--- NOTE | 2017-12-18 10:21 | DIAGNOSTIC IMAGING REPORT ---
LIVER MRI HISTORY: Follow-up LIVER LESION ON CT TECHNIQUE: Multiplanar multisequence MRI of the abdomen was performed both before and after the intravenous administration of 10 cc of the wrist contrast to evaluate the liver. COMPARISON STUDY: Abdominal ultrasound 09/22/2017. Abdomen and pelvis CT 09/14/2017. FINDINGS: The lung bases are clear. There are 2 T2 hyperintense, T1 hypointense nonenhancing lesions within the left hepatic lobe. Dominant lesion measures 6 mm. These are consistent with cysts. No enhancing hepatic masses. The spleen, kidneys, pancreas, gallbladder, and right adrenal gland are unremarkable. No retroperitoneal lymphadenopathy. Stable nodular thickening within the left adrenal gland. Normal caliber common bile duct. IMPRESSION: No change compared to the prior studies. Stable subcentimeter left hepatic lobe cysts. No enhancing hepatic masses. Electronically signed by: Daniel Salazar M.D. 12/18/2017 10:19 AM Dictated Date/Time: 12/18/2017 9:53 AM
== END | disposition home or self-care (01) ==
LOC: C.MRI 08:22
PROVIDERS: ATTEND Internal Medicine Gastroenterology
DX: R10.31 Right lower quadrant pain (principal); K59.00 Constipation, unspecified; Z12.11 Encounter for screening for malignant neoplasm of colon; K76.9 Liver disease, unspecified

== ENCOUNTER 2022-03-02 08:49 | Observation (INO) ==
[2022-03-02] MEDS ORDERED: SODIUM CHLORIDE 0.9% 1000ML 1,000 ML IV ONE (09:04)
--- NOTE | 2022-03-02 09:08 | Emergency Department Note ---
Impression & Plan Ataxia, Dizziness, Headache ED Provider Note Name: SEDRICK VILLAR Age: 61 Sex: F Arrives Via: Ambulance Informant: Patient ED Provider: Gui Horton MD Chief Complaint: Dizziness Impression: As per impressions above Medical Decision Making: Pleasant 61-year-old female with a history of periodic migraines arrives for evaluation of worsening dizziness and vertiginous symptoms. She notes she is unable to ambulate due to she being so dizzy. This is unusual for her and is not consistent with her previous migraines. She does also note some double vision the last few days. On examination NIH is 0. CT scan was obtained which is fortunately negative. She had been given some Valium but continues to have symptoms. Was given a small dose of IV narcotic for the headache which did seem to help it. He developed a headache while being here. There is no evidence of meningitis, thrombosis, symptoms are not consistent with acute dissection. Given continued symptoms and atypical of her migraines she likely will need further stroke evaluation and monitoring. Hospitalist was consulted for further management. Prior Medical Record and Triage/Nursing Notes reviewed by Me Additional history obtained from chart Differentials:Benign positional vertigo, dehydration, hypovolemia, anemia, tumor, infection, hypoglycemia, electrolyte abnormalities, cardiac sources, intracerebral event, toxicologic, neurologic, as well as other pathologies. Vital Signs: reviewed and remarkable for hypertension -new for patient Interventions: Valium IV, Dilaudid IV, normal saline bolus Labs:Reviewed and remarkable for no significant abnormalities Imaging:CT of the head without contrast reveals no acute findings. CT of the angio neck and head reveals no acute findings as per radiology EKG:Per My Interpretation: Indication dizzy: NSR 65 bpm, qtc 424. No Ectopy. No Ischemia. Compared to EKG 01/12/22, no significant changes. Consults:Hospitalist Plan: Disposition:Hospitalization. Condition: Good History of Present Illness:61-year-old female arrives for evaluation of dizziness. Patient with a long history of migraines and notes she had a pretty significant migraine last night which was a bit unusual is more rapid onset and anterior left. She did take some Zomig and went to bed. This morning patient awoke with continued headache and severe spinning. She felt like she can even look straight. When trying to get up she collapsed to the floor and had to crawl across the floor. She says the last 2 days she noticed some periodic double vision which she has never had before either though she attributed to maybe her glasses needed to be changed. She denies any falls, trauma, injuries. Denies any history of stroke or dissection. She does state that she was noted to have severely high blood pressure by EMS when she called them. She was tested for carbon monoxide poisoning earlier in the day and was told that she was clear. She is taken no medications this morning. She is on no blood thinners. Any movement makes worse staying still makes slightly better but she still feels dizzy. ROS: See above HPI for pertinent positives & negatives. A total of 10 systems reviewed and were otherwise negative. Past Medical History:Migraines Past Surgical History:Denies previous surgeries Family History:Father of a glioblastoma mother of lymphoma Social History:No smoking/drinking/drug use. Regularly rides horses. Home Medications:Zomig as needed Allergies:Latex Vitals:Blood Pressure: 148/88, Pulse 73, RR 16, T 36.5C, O2 100% on RA Physical Exam: GENERAL: Patient is uncomfortable appearing and in mild distress. EYES: No scleral icterus, unremarkable pupils. ENT: Mucous membranes moist, no nasal congestion. NECK: No masses appreciated, nomeningismus, trachea is midline. RESPIRATORY: No dyspnea. Clear to auscultation and equal bilaterally. No wheeze, no rhonchi. CARDIOVASCULAR: Regular rate and rhythm.No murmurs, rubs, gallops appreciated. GASTROINTESTINAL: Abdomen soft, non-tender, no peritonitis.Bowel sounds positive.No masses appreciated. BACK: No midline tenderness, no CVA tenderness EXTREMITIES: Normal motion all extremities, no cyanosis, no edema. NEUROLOGIC: Alert and oriented, no acute motor or sensory deficits, no focal weakness, cranial nerves grossly intact. SKIN: No rash, no jaundice, no diaphoresis. PSYCH: Appropriate GCS: 15 ED Course: Times/Reassessments: Patient feeling mildly improved but continued symptoms and dizziness Gui Horton MD Past Med/Surg History Medical History (Updated 03/03/22 @ 14:59 by Gui Horton MD) Abdominal pain, diffuse Chronic fatigue syndrome Chronic insomnia Diffuse abdominal pain Dysarthria Episode of unresponsiveness HTN (hypertension) Influenza A Migraine headache Sinusitis Stomach problems TIA (transient ischemic attack) Surgical History History of dilatation and curettage History of sinus surgery History of tooth extraction Family History Family/Other Breast cancer Alcoholism Other No pertinent family history in first degree relatives Social History Smoking Status: Never smoker Preferred Language: Greek marital status: Single Current Living Situation: Alone current occupational status: employed Feels Safe at Home: Yes Allergies Allergies Allergy/AdvReac Type Severity Reaction Status Date / Time latex Allergy Mild RASH Verified 03/02/22 09:01 Home Meds Home Medications Medication Instructions Recorded Confirmed zolmitriptan 5 mg tablet mg 03/02/22 Results & Data (ED) Vital Signs Vital Signs - 24 hr 03/02/22 08:54 Temperature 36.5 C Temperature Source Oral Pulse Rate 73 Respiratory Rate 16 Respiratory Effort / Characteristics Non-Labored Respiratory Depth Normal Blood Pressure 148/88 H Blood Pressure Mean 108 Pulse Oximetry 100 Oxygen Delivery Method Room Air Sepsis Recent Fever Within 48 Hours No Sepsis New/Unexplained Change in Mental Status No Sepsis Action Taken by Nursing No Action Required Laboratory Data Result diagrams: 03/03/22 09:54 03/03/22 09:54 Lab Results 03/02/22 03/02/22 03/02/22 Range/Units 08:55 08:55 08:55 WBC 7.53 (4.8-10.8) K/ul RBC 5.16 (3.93-5.22) M/uL Hgb 15.6 (12.0-16.0) g/dl Hct 45.6 H (34.1-44.9) % MCV 88.4 (80.0-100.0) fL MCH 30.2 (25.0-34.0) pg MCHC 34.2 (32.0-36.0) g/dL RDW Std Deviation 39.8 (36.4-46.3) fL RDW Coeff of Ronna 12.2 (11.5-14.5) % Plt Count 324 (130-400) K/uL MPV 9.8 (9.4-12.3) fL Immature Gran % (Auto) 0.4 % Neut % (Auto) 56.1 % Lymph % (Auto) 32.7 % [place] % (Auto) 7.6 % Eos % (Auto) 2.3 % Baso % (Auto) 0.9 % Neut # (Auto) 4.23 (1.4-6.5) K/uL Lymph # (Auto) 2.46 (1.2-3.4) K/uL [place] # (Auto) 0.57 (0.24-0.82) K/uL Eos # (Auto) 0.17 (0-0.50) K/uL Baso # (Auto) 0.07 (0-0.2) K/uL Immature Gran # (Auto) 0.03 H (0.00-0.02) K/uL Carboxyhemoglobin % THgb Sodium 140 (136-145) mmol/L Potassium 3.8 (3.5-5.1) mmol/L Chloride 106 (98-107) mmol/L Carbon Dioxide 26 (21-32) mmol/L Anion Gap 8 (3-11) BUN 15 (6-23) mg/dl Creatinine 0.83 (0.6-1.2) mg/dl Est Cr Clr Drug Dosing 76.1 ml/min Est GFR ( Amer) 88.8 ml/min Est GFR (Non-Af Amer) 76.6 ml/min BUN/Creatinine Ratio 18.1 (10-20) Glucose 91 (70-99(Fasting)) mg/dl Calcium 10.2 H (8.5-10.1) mg/dl Magnesium 2.1 (1.7-2.4) mg/dl Total Bilirubin 0.5 (0.2-1.0) mg/dl Direct Bilirubin 0.1 (0-0.2) mg/dl AST 15 (13-39) U/L ALT 21 (7-52) U/L Alkaline Phosphatase 55 (34-104) U/L Troponin I High Sens 3.5 (0-14) pg/ml Total Protein 8.2 (6.0-8.3) gm/dl Albumin 4.5 (3.4-5.0) gm/dl Urine Color Urine Appearance (Clear) Urine pH (4.5-7.5) Ur Specific [place] (1.000-1.030) Urine Protein (Negative) Urine Glucose (UA) (Negative) Urine Ketones (Negative) Urine Blood (Negative) Urine Nitrite (Negative) Urine Bilirubin (Negative) Urine Urobilinogen (Negative) Ur Leukocyte Esterase (Negative) Anaplasma Smear See Comment Babesia Smear See Comment Lyme Disease IgG Ab Negative (Negative) Lyme Disease IgM Ab Negative (Negative) SARS-CoV-2, RNA, NAAT (NEGATIVE) 03/02/22 03/02/22 03/02/22 Range/Units 09:35 10:30 11:45 WBC (4.8-10.8) K/ul RBC (3.93-5.22) M/uL Hgb (12.0-16.0) g/dl Hct (34.1-44.9) % MCV (80.0-100.0) fL MCH (25.0-34.0) pg MCHC (32.0-36.0) g/dL RDW Std Deviation (36.4-46.3) fL RDW Coeff of Ronna (11.5-14.5) % Plt Count (130-400) K/uL MPV (9.4-12.3) fL Immature Gran % (Auto) % Neut % (Auto) % Lymph % (Auto) % [place] % (Auto) % Eos % (Auto) % Baso % (Auto) % Neut # (Auto) (1.4-6.5) K/uL Lymph # (Auto) (1.2-3.4) K/uL [place] # (Auto) (0.24-0.82) K/uL Eos # (Auto) (0-0.50) K/uL Baso # (Auto) (0-0.2) K/uL Immature Gran # (Auto) (0.00-0.02) K/uL Carboxyhemoglobin 1.1 % THgb Sodium (136-145) mmol/L Potassium (3.5-5.1) mmol/L Chloride (98-107) mmol/L Carbon Dioxide (21-32) mmol/L Anion Gap (3-11) BUN (6-23) mg/dl Creatinine (0.6-1.2) mg/dl Est Cr Clr Drug Dosing ml/min Est GFR ( Amer) ml/min Est GFR (Non-Af Amer) ml/min BUN/Creatinine Ratio (10-20) Glucose (70-99(Fasting)) mg/dl Calcium (8.5-10.1) mg/dl Magnesium (1.7-2.4) mg/dl Total Bilirubin (0.2-1.0) mg/dl Direct Bilirubin (0-0.2) mg/dl AST (13-39) U/L ALT (7-52) U/L Alkaline Phosphatase (34-104) U/L Troponin I High Sens (0-14) pg/ml Total Protein (6.0-8.3) gm/dl Albumin (3.4-5.0) gm/dl Urine Color Yellow Urine Appearance Clear (Clear) Urine pH 6.5 (4.5-7.5) Ur Specific [place] 1.014 (1.000-1.030) Urine Protein Negative (Negative) Urine Glucose (UA) Negative (Negative) Urine Ketones Negative (Negative) Urine Blood Negative (Negative) Urine Nitrite Negative (Negative) Urine Bilirubin Negative (Negative) Urine Urobilinogen Negative (Negative) Ur Leukocyte Esterase Negative (Negative) Anaplasma Smear Babesia Smear Lyme Disease IgG Ab (Negative) Lyme Disease IgM Ab (Negative) SARS-CoV-2, RNA, NAAT NEGATIVE (NEGATIVE) Administered Medications Hydromorphone HCl (Hydromorphone Hcl 2 Mg Tab) 2 mg PO Q4H PRN PRN Reason: Migraine Headache Stop: 03/16/22 14:59 Last Admin: 03/03/22 04:53 Dose: 2 mg Documented By: Admin: 03/02/22 21:45 Dose: 2 mg Documented By: Admin: 03/02/22 16:40 Dose: 2 mg Documented By: TUAN Lactated Ringer's (Lr) 1,000 mls @ 80 mls/hr IV .[id number] RACHELLE Stop: 03/04/22 12:29 Last Admin: 03/03/22 11:56 Dose: 80 mls/hr Documented By: TUAN Melatonin (Melatonin 3 Mg Tab) 3 mg PO HS PRN PRN Reason: Sleep Stop: 04/01/22 14:59 Last Admin: 03/02/22 21:45 Dose: 3 mg Documented By: CANDIDO Discontinued Medications Diazepam (Diazepam 5 Mg/Ml Inj 10ml Vial) 5 mg IV NOW STA Stop: 03/02/22 09:05 Last Admin: 03/02/22 09:24 Dose: 5 mg Documented By: VIOLETA Hydromorphone HCl (Hydromorphone Inj 1 Mg/Ml Syringe) 1 mg IV NOW STA Stop: 03/02/22 11:02 Last Admin: 03/02/22 11:05 Dose: 1 mg Documented By: ALCIDES Hydromorphone HCl (Hydromorphone Inj 0.5 Mg/0.5 Ml Syr) Confirm Administered Dose 0.5 mg .ROUTE .STK-MED ONE Stop: 03/03/22 09:23 Last Admin: 03/03/22 09:30 Dose: Not Given Documented By: TUAN Hydromorphone HCl (Hydromorphone Inj 0.5 Mg/0.5 Ml Syr) 0.5 mg IV NOW STA Stop: 03/03/22 09:26 Last Admin: 03/03/22 09:29 Dose: 0.5 mg Documented By: TUAN Sodium Chloride (Nss 1000ml) 1,000 mls @ 999 mls/hr IV .Q1H1M ONE Stop: 03/02/22 10:04 Last Infusion: 03/02/22 10:25 Dose: 0 mls/hr Documented By: Admin: 03/02/22 09:24 Dose: 999 mls/hr Documented By: VIOLETA Promethazine HCl 6.25 mg/ (Sodium Chloride) 50.25 mls @ 201 mls/hr IV NOW STA Stop: 03/02/22 21:21 Last Infusion: 03/02/22 22:05 Dose: 0 mls/hr Documented By: Admin: 03/02/22 21:45 Dose: 201 mls/hr Documented By: CANDIDO Ioversol (Optiray 320 500ml) 115 ml IV ONCE ONE Stop: 03/02/22 10:24 Last Admin: 03/02/22 10:24 Dose: 115 ml Documented By: KONSTANTIN Ondansetron HCl (Ondansetron Inj 2 Mg/Ml 2 Ml Vial) 4 mg IV Q6H PRN PRN Reason: Nausea Stop: 04/01/22 14:59 Last Admin: 03/03/22 05:51 Dose: 4 mg Documented By: Admin: 03/02/22 16:40 Dose: 4 mg Documented By: TUAN Discharge Plan Visit Data Chief Complaint: Hypertension Stated Complaint: HEADACHE, NAUSEA, DIZZINESS, HTN ED Provider: Gui Horton Discharge Problem: Ataxia, Dizziness, Headache Patient Disposition: Admitted As Inpatient Discharge Instructions Interventions: ED Discharge Assessment Last Done: 03/02/22 14:25 : Headache Qualifiers: Headache type: unspecified Headache chronicity pattern: acute headache Intractability: not intractable Qualified Code(s): R51.9 - Headache, unspecified
[2022-03-02 09:14] LABS: Basophils # (auto) 0.07 K/uL (0-0.2); Basophils % (auto) 0.9 %; Eosinophils # (auto) 0.17 K/uL (0-0.50); Eosinophils % (auto) 2.3 %; Hematocrit (blood only) 45.6 % (34.1-44.9); Hemoglobin 15.6 g/dl (12.0-16.0); Immature Granulocytes # (auto) 0.03 K/uL (0.00-0.02); Immature Granulocytes % (auto) 0.4 %; Lymphocytes # (auto) 2.46 K/uL (1.2-3.4); Lymphocytes % (auto) 32.7 %; Mean Corpuscular Hemoglobin 30.2 pg (25.0-34.0); Mean Corpuscular Hgb Conc 34.2 g/dL (32.0-36.0); Mean Corpuscular Volume 88.4 fL (80.0-100.0); Mean Platelet Volume 9.8 fL (9.4-12.3); Monocytes # (auto) 0.57 K/uL (0.24-0.82); Monocytes % (auto) 7.6 %; Neutrophils # (auto) 4.23 K/uL (1.4-6.5); Neutrophils % (auto) 56.1 %; Platelet Count 324 K/uL (130-400); RDW Coefficient of Variation 12.2 % (11.5-14.5); RDW Standard Deviation 39.8 fL (36.4-46.3); Red Blood Count 5.16 M/uL (3.93-5.22); White Blood Count 7.53 K/ul (4.8-10.8)
[2022-03-02 09:37] LABS: Albumin Level 4.5 gm/dl (3.4-5.0); BUN Creatinine Ratio 18.1 (10-20); Bilirubin Direct 0.1 mg/dl (0-0.2); Bilirubin,Total 0.5 mg/dl (0.2-1.0); Calcium 10.2 mg/dl (8.5-10.1); Creatinine Clr Calc Pharmacy 76.1 ml/min; Est GFR (African American) 88.8 ml/min; Est GFR (Non-African American) 76.6 ml/min; Magnesium 2.1 mg/dl (1.7-2.4); Potassium 3.8 mmol/L (3.5-5.1); Total Protein 8.2 gm/dl (6.0-8.3)
[2022-03-02 09:41] LABS: Troponin I High Sensitivity 3.5 pg/ml (0-14)
[2022-03-02] MEDS ORDERED: OPTIRAY 320 500ml IV ONE (10:23)
[2022-03-02 10:38] LABS: Appearance Urine Clear (Clear); Bilirubin Urine Negative (Negative); Blood Urine Negative (Negative); Color Urine Yellow; Glucose Urine UA Negative (Negative); Ketones Urine Negative (Negative); Leukocyte Esterase Urine Negative (Negative); Nitrite Urine Negative (Negative); Protein Urine Negative (Negative); Specific Gravity Urine 1.014 (1.000-1.030); Urobilinogen Urine Negative (Negative); pH Urine 6.5 (4.5-7.5)
--- NOTE | 2022-03-02 10:59 | CT Scan Report ---
CT angio neck with con, CT angio head wo/w CLINICAL HISTORY: 61 years-old Female with new onset vertigo, visual changes. Acute strokelike sym ptoms COMPARISON STUDY: Head CT 01/12/2022, CTA head and neck 06/19/2019 TECHNIQUE: Following the IV administration of 115 mL of Optiray, CT angiogram of the head and neck wa s performed from the aortic arch to the skull apex. Images are reviewed in the axial, sagittal, and c oronal planes. 3-D MIPS images are created and assessed. IV contrast was administered without complic ation. All measurements were calculated based on NASCET criteria. Noncontrast head CT also obtained. A dose lowering technique was utilized adhering to the principles of ALARA. CT DOSE: 1012.32 mGy.cm FINDINGS: CT HEAD: No acute intracranial hemorrhage, midline shift, abnormal extra axial collection, hydrocephalus, acut e territorial infarct or intracranial mass. Calcifications of the falx cerebri. No acute calvarial fr acture. The mastoid air cells and paranasal sinuses are generally clear. Unremarkable soft tissues an d orbits. CTA HEAD AND NECK: Three-vessel morphology of the thoracic aortic arch. There is patency of the innominate and imaged hewitt bclavian arteries. The common carotid arteries are widely patent. Internal carotid arteries are also patent. The middle and anterior cerebral arteries are patent. The vertebral arteries are codominant a nd widely patent. Luminal narrowing of the distal V2 segment of the right vertebral artery at the lev el of C2 is a chronic finding. Mild luminal irregularity of the right V3 segment is also unchanged. T he basilar and posterior cerebral arteries appear patent. Cerebral venous sinuses appear patent. Ther e is no abnormal intracranial enhancement identified. Lung apices are clear. No pneumothorax identified. 9 mm hypodense right-sided thyroid nodule. Unremar kable soft tissues. Degenerative changes of the cervical spine. IMPRESSION: 1. No acute intracranial abnormality. 2. Unremarkable CTA of the head and neck. ACT 112: Negative or not required by law. The above report was generated using voice recognition software. It may contain grammatical, syntax o r spelling errors. Electronically signed by: Norris King M.D. 03/02/2022 10:57 AM
[2022-03-02] MEDS ORDERED: HYDROmorphone INJ 1 MG/ML SYRINGE IV STA (11:01)
--- NOTE | 2022-03-02 11:43 | History & Physical Report ---
Date of Service March 02, 2022 Assessment & Plan (1) Migraine headache: Plan: - 12+ hours of left occipital headache with some nausea, double vision x2 days, and severe dizziness this morning. Also reports brain fog, slow speech. No focal numbness/tingling/weakness. Gait intact. Speech is slow, however clear nonsensical. - Differential at this point is complex migraine versus CVA versus tickborne illness. No fever/chills, elevated WC, or meningeal signs to suggest meningitis. - Lyme/anaplasmosis/Babesia ordered, pending. - Continue Tylenol, Dilaudid for migraine headache pain. Avoid NSAIDs in case of acute CVA. - Meclizine as needed for dizziness. - CT/CTA head, CTA neck unrevealing for acute process. - MRI brain + neck given left-sided stiffness/decreased ROM. - Echo in a.m. - CBC, BMP, HbA1c, lipid panel in a.m. -Regular diet. - PT, OT, ST to evaluate in a.m. - CTA of head and neck as above, no significant stenosis. - Telemetry for 24 hours, evaluate for episodes of atrial fibrillation. (2) Chronic fatigue syndrome: (3) Chronic insomnia: Plan: - Melatonin ordered prn; no home meds for this. (4) Dizziness: Plan: - Stroke vs migraine headache. - Meclizine PRN. - PT/OT. History of Present Illness Chief Complaint: Headache, dizziness since last evening Primary Care Provider: Ida Stacy MD Vira Reynolds is a 61-year-old female with a past medical history of migraines, chronic fatigue, insomnia who is presenting today with dizziness. She does have a past medical history for migraine headaches, and had one that came on very rapidly last night in the back of her head on the left side. She took Zomig and went to bed, however woke up this morning still with headache and had severe dizziness and cannot look straight due to that. While trying to walk, she did actually collapsed due to the dizziness and had to crawl on the ground to mvoe throughout her home. Over the last 2 days she has had some intermittent double vision which is new for her. She was severely hypertensive for EMS en route with a systolic BP reported to be in the 200s, had come down to 180s upon arrival. She does not have history of high blood pressure. There was concern for carbon monoxide poisoning so the fire department checked her home and it was clear, her carbon monoxide levels checked here, 1.1%. Patient is a typical migraine for her is unilateral, comes on very quickly and lasts for hours until it resolves with medication. She has associated nausea and occasional vomiting has not had any auras with her migraines for several years. Her headache today is different and that it is coming and going and associated with severe dizziness which she has never experienced before with migraine. She does spend a significant amount of time outside and trail rides with her horse. She recently had takes and was treated, she checked herself for ticks and did not see any, but cannot say for certain she has not had a tick bite recently. She also has left-sided head/neck tightness and limited range of motion. States this is very unusual for her as she does sandra chi and is very flexible. On presentation, she was mildly hypertensive and tachycardic, SPO2 dropped transiently with diazepam and Dilaudid, now SPO2 >95% on room air. Her labs are unremarkable. Head CT/CTA, neck CTA unrevealing for any hemorrhage, mass- effect, ischemia, aneurysm, dissection. Allergies Allergy/AdvReac Type Severity Reaction Status Date / Time latex Allergy Mild RASH Verified 03/02/22 09:01 Home Medications Medication Instructions Recorded Confirmed Type zolmitriptan 5 mg tablet mg 03/02/22 History Past Med/Surg History Medical History (Updated 03/02/22 @ 12:49 by Karuna Kiser PA-C) Abdominal pain, diffuse Chronic fatigue syndrome Chronic insomnia Diffuse abdominal pain Dysarthria Episode of unresponsiveness HTN (hypertension) Influenza A Migraine headache Sinusitis Stomach problems TIA (transient ischemic attack) Surgical History History of dilatation and curettage History of sinus surgery History of tooth extraction Family History Family/Other Breast cancer Alcoholism Other No pertinent family history in first degree relatives Social History Smoking Status: Never smoker Preferred Language: Mexican marital status: Single Current Living Situation: Alone current occupational status: employed Feels Safe at Home: Yes Review of Systems Review of Systems: Constitutional: Posterior headache since last night, waxing and waning with associated dizziness as if the room is spinning; no fever/chills, weakness, fatigue, myalgias, anorexia, night sweats Eyes: Double vision x 2 days; no worsening or blurred vision ENT: normal hearing, no trouble swallowing Respiratory: No cough, sputum, dyspnea at rest or on exertion Cardiovascular: No chest pain, tightness or palpitations Abdomen: No pain, nausea, vomiting, diarrhea or constipation : Denies dysuria, hematuria, increased urgency/frequency, urinary retention Musculoskeletal: Left-sided neck pain with limited range of motion; no joint pain, calf pain, swelling Neurologic: No weakness, numbness/tingling, or balance problems Psychiatric: No anxiety or depression Skin: No rash or itch Physical Exam Physical Exam: General: awake, alert, no apparent distress Head: Normocephalic, atraumatic ENT: PERRL, EOMI, no pharyngeal exudate, mucous membranes moist Chest: Clear to auscultation, on room air, no adventitious breath sounds Cardiac: Regular rate and rhythm, no murmur, no JVD, normal peripheral pulses, good capillary refill Abdominal: NABS x 4 quadrants, soft, nontender to palpation, no rebound, guarding or tenderness Extremities: left paraspinal muscle tenderness with limited ROM due to stiffness; otherwise normal inspection, no peripheral edema or erythema, calfs nontender to palpation Psych: Normal mood and affect Neuro: AAO x 3, strength intact bilaterally and rated 5/5, no motor deficits, speech is clear, no peripheral sensory deficits Skin: no rash or erythema Results & Data Results & Data ([facility]) Vital Signs (Past 12 Hours) Vital Signs Temp Pulse Pulse Resp BP BP Pulse Ox 03/02/22 11:11 97 03/02/22 11:10 85 L 03/02/22 10:00 92 H 16 161/68 H 100 03/02/22 08:54 36.5 C 73 16 148/88 H 100 O2 Del Method O2 Flow Rate 03/02/22 11:11 Nasal Cannula 2 03/02/22 11:10 Room Air 03/02/22 10:00 Room Air 03/02/22 08:54 Room Air Laboratory Results Abnormal lab results 03/02/22 03/02/22 Range/Units 08:55 08:55 Hct 45.6 H (34.1-44.9) % Immature Gran # (Auto) 0.03 H (0.00-0.02) K/uL Calcium 10.2 H (8.5-10.1) mg/dl Diagnostic Findings Head CTA 03/02/22 09:04 CT angio neck with con, CT angio head wo/w CLINICAL HISTORY: 61 years-old Female with new onset vertigo, visual changes. Acute strokelike symptoms COMPARISON STUDY: Head CT 01/12/2022, CTA head and neck 06/19/2019 TECHNIQUE: Following the IV administration of 115 mL of Optiray, CT angiogram of the head and neck was performed from the aortic arch to the skull apex. Images are reviewed in the axial, sagittal, and coronal planes. 3-D MIPS images are created and assessed. IV contrast was administered without complication. All measurements were calculated based on NASCET criteria. Noncontrast head CT also obtained. A dose lowering technique was utilized adhering to the principles of ALARA. CT DOSE: 1012.32 mGy.cm FINDINGS: CT HEAD: No acute intracranial hemorrhage, midline shift, abnormal extra axial collection, hydrocephalus, acute territorial infarct or intracranial mass. Calcifications of the falx cerebri. No acute calvarial fracture. The mastoid air cells and paranasal sinuses are generally clear. Unremarkable soft tissues and orbits. CTA HEAD AND NECK: Three-vessel morphology of the thoracic aortic arch. There is patency of the innominate and imaged subclavian arteries. The common carotid arteries are widely patent. Internal carotid arteries are also patent. The middle and anterior cerebral arteries are patent. The vertebral arteries are codominant and widely patent. Luminal narrowing of the distal V2 segment of the right vertebral artery at the level of C2 is a chronic finding. Mild luminal irregularity of the right V3 segment is also unchanged. The basilar and posterior cerebral arteries appear patent. Cerebral venous sinuses appear patent. There is no abnormal intracranial enhancement identified. Lung apices are clear. No pneumothorax identified. 9 mm hypodense right-sided thyroid nodule. Unremarkable soft tissues. Degenerative changes of the cervical spine. IMPRESSION: 1. No acute intracranial abnormality. 2. Unremarkable CTA of the head and neck. ACT 112: Negative or not required by law. The above report was generated using voice recognition software. It may contain grammatical, syntax or spelling errors. Electronically signed by: Norris King M.D. 03/02/2022 10:57 AM Neck CTA 03/02/22 09:04 CT angio neck with con, CT angio head wo/w CLINICAL HISTORY: 61 years-old Female with new onset vertigo, visual changes. Acute strokelike symptoms COMPARISON STUDY: Head CT 01/12/2022, CTA head and neck 06/19/2019 TECHNIQUE: Following the IV administration of 115 mL of Optiray, CT angiogram of the head and neck was performed from the aortic arch to the skull apex. Images are reviewed in the axial, sagittal, and coronal planes. 3-D MIPS images are created and assessed. IV contrast was administered without complication. All measurements were calculated based on NASCET criteria. Noncontrast head CT also obtained. A dose lowering technique was utilized adhering to the principles of ALARA. CT DOSE: 1012.32 mGy.cm FINDINGS: CT HEAD: No acute intracranial hemorrhage, midline shift, abnormal extra axial collection, hydrocephalus, acute territorial infarct or intracranial mass. Calcifications of the falx cerebri. No acute calvarial fracture. The mastoid air cells and paranasal sinuses are generally clear. Unremarkable soft tissues and orbits. CTA HEAD AND NECK: Three-vessel morphology of the thoracic aortic arch. There is patency of the innominate and imaged subclavian arteries. The common carotid arteries are widely patent. Internal carotid arteries are also patent. The middle and anterior cerebral arteries are patent. The vertebral arteries are codominant and widely patent. Luminal narrowing of the distal V2 segment of the right vertebral artery at the level of C2 is a chronic finding. Mild luminal irregularity of the right V3 segment is also unchanged. The basilar and posterior cerebral arteries appear patent. Cerebral venous sinuses appear patent. There is no abnormal intracranial enhancement identified. Lung apices are clear. No pneumothorax identified. 9 mm hypodense right-sided thyroid nodule. Unremarkable soft tissues. Degenerative changes of the cervical spine. IMPRESSION: 1. No acute intracranial abnormality. 2. Unremarkable CTA of the head and neck. ACT 112: Negative or not required by law. The above report was generated using voice recognition software. It may contain grammatical, syntax or spelling errors. Electronically signed by: Norris King M.D. 03/02/2022 10:57 AM Code Status & VTE Plan Code Status Full Code. Supervising Physician Co-Signing Physician Notes Patient seen and examined, chart reviewed, case discussed with [] and I agree with the assessment and plan as above except as otherwise noted Labs and images reviewed History of complex migraine with multiple ER admission/evaluations. Headache occipital developed last night, persistent in the morning. some room spinning. Called EMS for concern of carbon monoxide, levels at home were normal. BP elevated, 160s in ER without intervention. Recommended for CVA vs migraine eval overnight. Pt feels speech is slow and has some cognitive slowing which is new, but chart review reports similar sx with other episodes. At bedside No dysarthria or focal weakness, feels 'hypersensitive' on the R arm but 'could be normal and just noticing it more.' +occipital L sided h/a. Does endorse nighttime vertical diplopia/halos. No focal weakness. No facial asymmetry. PERLAA. Vision/hearing grossly intact. EoM intact, PERLAA. Moving all extremities equally, no arm/leg strength asymmetry. CTAB/RRR. MRI pending as above. Tick panel pending as pt is frequently on trails with horse. Stroke eval and migrane tx as noted. Agree w/ MRI given diplopia and stroke eval. PG Care Time/CCT Total # of Minutes Spent Total Time Spent with Patient: Total time spent is greater than 50% in coordination of care (as documented) at patient's floor/unit and/or counseling patient: Coding Level of Care Code INT OBSERVATION CARE 70M LVL 3 Diagnoses Migraine headache G43.809 Intractability: not intractable Migraine type: other Status migrainosus presence: without status migrainosus Chronic fatigue syndrome R53.82 Chronic insomnia F51.04 Dizziness R42 (1) Migraine headache Intractability: not intractable Migraine type: other Status migrainosus presence: without status migrainosus Qualified Code(s): G43.809 - Other migraine, not intractable, without status migrainosus
[2022-03-02 12:50] LABS: Lyme Ab IgG w/WB Rflx Negative (Negative); Lyme Ab IgM w/WB Rflx Negative (Negative)
[2022-03-02] MEDS ORDERED: ACETAMINOPHEN 325 MG TAB PO PRN (15:00)
[2022-03-02] MEDS ORDERED: POLYETHYLENE (MIRALAX) 17 GM PACK PO PRN (15:00)
[2022-03-02] MEDS ORDERED: MECLIZINE HCL 25 MG TAB PO PRN (15:00)
[2022-03-02] MEDS ORDERED: MELATONIN 3 MG TAB PO PRN (15:00)
[2022-03-02] MEDS ORDERED: PHARMACIST DISCHARGE MED REC CONSULT PRN (15:00)
[2022-03-02] MEDS ORDERED: MAGNESIUM HYDROXIDE SUSP 30 ML UDC PO PRN (15:00)
[2022-03-02] MEDS: HYDROmorphone HCL 2 MG TAB PO PRN ×2 (16:40→21:45)
[2022-03-02] MEDS: ONDANSETRON INJ 2 MG/ML 2 ML VIAL IV PRN (16:40)
--- NOTE | 2022-03-02 16:59 | Magnetic Resonance Report ---
MR cervical spine wo con HISTORY: 61 years-old Female left neck/head pain acute neck pain COMPARISON: CTA neck same day TECHNIQUE: Multiplanar multisequence MRI of the cervical spine was obtained without the use of IV con trast. FINDINGS: 1.4 cm T4 vertebral body hemangioma. No acute fracture, subluxation, endplate erosion or destructive bone lesion. Normal signal of the cervical and imaged upper thoracic spinal cord. 8 mm T2 hyperintens e right thyroid nodule. No prevertebral edema. C2-C3: Mild intervertebral disc space narrowing with uncovertebral spurring and mild facet arthrosis. No central canal or neural foraminal narrowing. C3-C4: Mild intervertebral disc space narrowing with uncovertebral spurring and mild facet arthrosis. No central canal or neural foraminal narrowing. C4-C5: Mild to moderate intervertebral disc space narrowing with uncovertebral hypertrophy and small posterior disc osteophyte complex. Moderate facet arthrosis. The central canal is patent. Moderate ri ght with [id number] left neural foraminal narrowing. C5-C6: Moderate intervertebral disc space narrowing. Circumferential annular disc bulge with posterio r disc osteophyte complex and moderate facet arthrosis. Mild central canal stenosis with AP dimension of the thecal sac measuring 8 mm. Moderate bilateral neural foraminal narrowing. C6-C7: Mild facet arthrosis. No central canal or neural foraminal narrowing. C7-T1: Moderate facet arthrosis. No central canal or neural foraminal narrowing. IMPRESSION: 1. Discogenic degeneration of the cervical spine is most pronounced at C4-C5 and C5-C6 as above. 2. Mild central canal stenosis at C5-C6. 3. Normal signal of the cervical spinal cord. ACT 112: Negative or not required by law. The above report was generated using voice recognition software. It may contain grammatical, syntax o r spelling errors. Electronically signed by: Norris King M.D. 03/02/2022 4:56 PM
--- NOTE | 2022-03-02 17:36 | Magnetic Resonance Report ---
MR brain wo con HISTORY: 61 years-old Female CVA vs migraine acute dizziness with headache and strokelike symptoms. COMPARISON: Head CT 01/12/2022, brain MRI 04/11/2014 TECHNIQUE: Multiplanar multisequence MRI of the brain was obtained without the use of IV contrast. FINDINGS: No restricted diffusion to suggest acute or subacute infarct. Midline structures appear unremarkable. Mild degenerative changes of the imaged cervical spine. No acute intracranial hemorrhage, midline sh ift, abnormal extra-axial collection, hydrocephalus or intracranial mass. Minimal subcentimeter T2/FL AIR signal noted within the white matter of the cerebral hemispheres, likely of no clinical significa nce. Cerebral venous sinuses and major arterial flow voids appear patent. Skull, orbits and soft tissues a re unremarkable. The mastoid air cells and paranasal sinuses appear clear. IMPRESSION: No acute intracranial abnormality. No acute or subacute infarct. ACT 112: Negative or not required by law. The above report was generated using voice recognition software. It may contain grammatical, syntax o r spelling errors. Dictated: 03/02/2022 4:10 PM Transcribed: 03/02/2022 4:47 PM Adriana [id number] [email or web address] Electronically signed by: Norris King M.D. 03/02/2022 5:33 PM
[2022-03-02] MEDS ORDERED: PROMETHAZINE HCL 6.25 MG in SODIUM CHLORIDE 0.9% 50 ML IV STA (21:07)
[2022-03-03] MEDS: HYDROmorphone HCL 2 MG TAB PO PRN ×2 (04:53→15:41)
[2022-03-03] MEDS: ONDANSETRON INJ 2 MG/ML 2 ML VIAL IV PRN (05:51)
--- NOTE | 2022-03-03 08:14 | Hospitalist Progress Note ---
Date of Service March 03, 2022 Assessment & Plan (1) Migraine headache: Plan: - 12+ hours of left occipital headache with some nausea, double vision x2 days, and severe dizziness this morning. Also reports brain fog, slow speech. No focal numbness/tingling/weakness. Gait intact. Speech is slow, however clear nonsensical. - Differential at this point is complex migraine versus CVA versus tickborne illness. No fever/chills, elevated WC, or meningeal signs to suggest meningitis. - Lyme/anaplasmosis/Babesia negative - Continue Tylenol, Dilaudid for migraine headache pain. - Meclizine as needed for dizziness. - CT/CTA head, CTA neck unrevealing for acute process. - MRI brain + neck negative for acute process or stenosis - Echo pending -Regular diet. - PRN phenergan for nausea - PT, OT, ST ordered, patient does not have a swallowing dysfunction can go home at discharge - Telemetry to evaluate for episodes of atrial fibrillation. - Given her negative studies and symptoms so far, will rule out stroke, patient may use nsaids for pain management - likely a concern her persistent migraine and pain have some relation to tension headache and anxiety, will try OMM and benzo to help relieve pain -consulted yard foreman per patient request, consulted to connect with local resources (2) Chronic fatigue syndrome: (3) Chronic insomnia: Plan: - Melatonin ordered prn; no home meds for this. (4) Dizziness: Plan: - Stroke vs migraine headache. - Meclizine PRN. - PT/OT. Admission and Anticipated Discharge Date Admission Date: March 02, 2022 Supervising Physician Co-Signing Physician Notes I personally examined the patient and verified all velázquez points of history and exam, discussed case, and agree with decision making with Dr Hollis. Ongoing headache. Predominantly right-sided feels very deep, right cheek, ongoing photophobia phonophobia and nausea. Notes that the pattern of the headache is fairly similar to her prior migraines, the main thing is that typically whenever she takes her zolmitriptan, while she will feel lousy the next day the headache will armando, and she will quickly feel betterthis time it has not Vitals noted, in general she is awake and alert pleasant but appears fatigued and is sitting in a quiet room with her headache. HEENT normocephalic atraumatic mucous membranes moist. Musculoskeletal/osteopathic shows left greater than right suboccipitals to be high tone, tender, decreased range of motioninhibitory pressure with some improvement, patient tolerated well. Neuro shows no focal deficits. Exam otherwise as above. Imaging noted. Intractable migrainesuspect migraine and tension componentsalthough given the ongoing photophobia/phonophobia/nauseapredominantly migraine. Scheduled Tylenol/Toradol, Valium now and again at bedtime to help relax the suboccipital musculature, OMT to relax the suboccipital musculature, magnesium/calcium, consider IV Depakote or subcu sumatriptan if above measures do not affect si gnificant improvement Subjective Patient seen at bedside, curled up and crying due to back pain that come on after her echo, complains of pain going down her right thigh. There is a possibility this is secondary to the medication injected during echo imaging. Ordered IV dilaudid given patient's difficulty swallowing PO while in pain. Prior to administration of dilaudid, patient felt her pain pain gradually improving was able to roll and lay on her back. Denied any loss of sensation though had subjective weakness of her right thigh flexion. No loss of sensation or weakness on her upper extremities. Patient AAOx3. Patient states she was migraine free all summer, started occuring again in the fall. Gets them less than once a month. Usually her abortive therapy works, however this time she took it before bed and woke up with the headache still. She has tried multiple different types of migraine medications in the past without benefit. States at this time her migraine is still here, denies vision changes only has some blurry vision, the dilaudid helps slightly but doesn't resolve it. Patient later burst into tears and requested a yard foreman to pray with. She states she works in [place] and has a lot of trouble getting a passport, usually is able to function fine under lots of stress. Patient understands we will connect her with behavioral therapy as the yard foreman will not be in hospital until tomorrow. Review of Systems Review of Systems: positive headache Negative fever chills Negative chest pain palpitations SOB Negative nausea vomitting diarrhea constipation Physical Exam Constitutional: WD/WN, vitals as above Eyes: PERRL, conjunctivae normal, anicteric sclerae ENMT: external ear and nose normal, oropharynx normal Neck: trachea midline, no thyromegaly Respiratory: normal respiratory effort, lungs clear to auscultation Cardiovascular: RRR, no murmur, no edema Chest (Breasts): normal inspection/palpation of breasts Gastrointestinal (Abdomen): normal bowel sounds, soft, nontender, no hepatosplenomegaly Musculoskeletal: no cyanosis or clubbing, extremities motor strength 5/5 Skin: no rashes, warm and dry Neurologic: normal touch/pain/proprioception and CN's II-XI intact bilaterally Psychiatric: Orientation: alert and oriented x 3 Affect: + anxious affect and + tearful affect Results & Data Results & Data ([facility]) Vital Signs (Past 12 Hours) Vital Signs Temp Pulse Pulse Resp BP Pulse Ox O2 Del Method 03/03/22 07:48 36.8 C 68 18 126/77 98 Room Air 03/03/22 07:35 80 03/03/22 03:13 36.9 C 79 20 121/77 98 Room Air 03/03/22 00:49 89 03/02/22 23:00 36.6 C 87 20 144/79 H 94 Room Air Diagnostic Findings Laboratory Results WBC 9.24 K/ul (4.8-10.8) 03/03/22 09:54 RBC 4.82 M/uL (3.93-5.22) 03/03/22 09:54 Hgb 14.5 g/dl (12.0-16.0) 03/03/22 09:54 Hct 42.3 % (34.1-44.9) 03/03/22 09:54 MCV 87.8 fL (80.0-100.0) 03/03/22 09:54 MCH 30.1 pg (25.0-34.0) 03/03/22 09:54 MCHC 34.3 g/dL (32.0-36.0) 03/03/22 09:54 RDW Std Deviation 38.7 fL (36.4-46.3) 03/03/22 09:54 RDW Coeff of Ronna 12.0 % (11.5-14.5) 03/03/22 09:54 Plt Count 265 K/uL (130-400) 03/03/22 09:54 MPV 9.4 fL (9.4-12.3) 03/03/22 09:54 Immature Gran % (Auto) 1.9 % 03/03/22 09:54 Neut % (Auto) 77.9 % 03/03/22 09:54 Lymph % (Auto) 13.6 % 03/03/22 09:54 Pershing % (Auto) 5.1 % 03/03/22 09:54 Eos % (Auto) 1.3 % 03/03/22 09:54 Baso % (Auto) 0.2 % 03/03/22 09:54 Neut # (Auto) 7.19 K/uL (1.4-6.5) H 03/03/22 09:54 Lymph # (Auto) 1.26 K/uL (1.2-3.4) 03/03/22 09:54 Pershing # (Auto) 0.47 K/uL (0.24-0.82) 03/03/22 09:54 Eos # (Auto) 0.12 K/uL (0-0.50) 03/03/22 09:54 Baso # (Auto) 0.02 K/uL (0-0.2) 03/03/22 09:54 Immature Gran # (Auto) 0.18 K/uL (0.00-0.02) H 03/03/22 09:54 Carboxyhemoglobin 1.1 % THgb 03/02/22 09:35 Sodium 139 mmol/L (136-145) 03/03/22 09:54 Potassium 4.0 mmol/L (3.5-5.1) 03/03/22 09:54 Chloride 107 mmol/L (98-107) 03/03/22 09:54 Carbon Dioxide 24 mmol/L (21-32) 03/03/22 09:54 Anion Gap 8 (3-11) 03/03/22 09:54 BUN 13 mg/dl (6-23) 03/03/22 09:54 Creatinine 0.68 mg/dl (0.6-1.2) 03/03/22 09:54 Est Cr Clr Drug Dosing 92.7 ml/min 03/03/22 09:54 Est GFR ( Amer) 110.2 ml/min 03/03/22 09:54 Est GFR (Non-Af Amer) 95.1 ml/min 03/03/22 09:54 BUN/Creatinine Ratio 19.1 (10-20) 03/03/22 09:54 Glucose 109 mg/dl (70-99(Fasting)) H 03/03/22 09:54 Calcium 9.7 mg/dl (8.5-10.1) 03/03/22 09:54 Magnesium 2.1 mg/dl (1.7-2.4) 03/02/22 08:55 Total Bilirubin 0.5 mg/dl (0.2-1.0) 03/02/22 08:55 Direct Bilirubin 0.1 mg/dl (0-0.2) 03/02/22 08:55 AST 15 U/L (13-39) 03/02/22 08:55 ALT 21 U/L (7-52) 03/02/22 08:55 Alkaline Phosphatase 55 U/L (34-104) 03/02/22 08:55 Troponin I High Sens 3.5 pg/ml (0-14) 03/02/22 08:55 Total Protein 8.2 gm/dl (6.0-8.3) 03/02/22 08:55 Albumin 4.5 gm/dl (3.4-5.0) 03/02/22 08:55 Triglycerides 87 mg/dl (0-150) 03/03/22 09:54 Cholesterol 213 mg/dl (0-200) H 03/03/22 09:54 LDL Cholesterol, Calc 144 mg/dl 03/03/22 09:54 VLDL Cholesterol, Calc 17 mg/dl (0-30) 03/03/22 09:54 HDL Cholesterol 52 mg/dl 03/03/22 09:54 Cholesterol/HDL Ratio 4.1 (0-5) 03/03/22 09:54 Urine Color Yellow 03/02/22 10:30 Urine Appearance Clear (Clear) 03/02/22 10:30 Urine pH 6.5 (4.5-7.5) 03/02/22 10:30 Ur Specific [place] 1.014 (1.000-1.030) 03/02/22 10:30 Urine Protein Negative (Negative) 03/02/22 10:30 Urine Glucose (UA) Negative (Negative) 03/02/22 10:30 Urine Ketones Negative (Negative) 03/02/22 10: Urine Blood Negative (Negative) 03/02/22 10:30 Urine Nitrite Negative (Negative) 03/02/22 10:30 Urine Bilirubin Negative (Negative) 03/02/22 10:30 Urine Urobilinogen Negative (Negative) 03/02/22 10:30 Ur Leukocyte Esterase Negative (Negative) 03/02/22 10:30 Anaplasma Smear See Comment 03/02/22 08:55 Babesia Smear See Comment 03/02/22 08:55 Lyme Disease IgG Ab Negative (Negative) 03/02/22 08:55 Lyme Disease IgM Ab Negative (Negative) 03/02/22 08:55 SARS-CoV-2, RNA, NAAT NEGATIVE (NEGATIVE) 03/02/22 11:45 Impressions Head CTA 03/02/22 09:04 CT angio neck with con, CT angio head wo/w CLINICAL HISTORY: 61 years-old Female with new onset vertigo, visual changes. Acute strokelike symptoms COMPARISON STUDY: Head CT 01/12/2022, CTA head and neck 06/19/2019 TECHNIQUE: Following the IV administration of 115 mL of Optiray, CT angiogram of the head and neck was performed from the aortic arch to the skull apex. Images are reviewed in the axial, sagittal, and coronal planes. 3-D MIPS images are created and assessed. IV contrast was administered without complication. All measurements were calculated based on NASCET criteria. Noncontrast head CT also obtained. A dose lowering technique was utilized adhering to the principles of ALARA. CT DOSE: 1012.32 mGy.cm FINDINGS: CT HEAD: No acute intracranial hemorrhage, midline shift, abnormal extra axial collection, hydrocephalus, acute territorial infarct or intracranial mass. Calcifications of the falx cerebri. No acute calvarial fracture. The mastoid air cells and paranasal sinuses are generally clear. Unremarkable soft tissues and orbits. CTA HEAD AND NECK: Three-vessel morphology of the thoracic aortic arch. There is patency of the innominate and imaged subclavian arteries. The common carotid arteries are widely patent. Internal carotid arteries are also patent. The middle and anterior cerebral arteries are patent. The vertebral arteries are codominant and widely patent. Luminal narrowing of the distal V2 segment of the right vertebral artery at the level of C2 is a chronic finding. Mild luminal irregularity of the right V3 segment is also unchanged. The basilar and posterior cerebral arteries appear patent. Cerebral venous sinuses appear patent. There is no abnormal intracranial enhancement identified. Lung apices are clear. No pneumothorax identified. 9 mm hypodense right-sided thyroid nodule. Unremarkable soft tissues. Degenerative changes of the cervical spine. IMPRESSION: 1. No acute intracranial abnormality. 2. Unremarkable CTA of the head and neck. ACT 112: Negative or not required by law. The above report was generated using voice recognition software. It may contain grammatical, syntax or spelling errors. Electronically signed by: Norris King M.D. 03/02/2022 10:57 AM Neck CTA 03/02/22 09:04 CT angio neck with con, CT angio head wo/w CLINICAL HISTORY: 61 years-old Female with new onset vertigo, visual changes. Acute strokelike symptoms COMPARISON STUDY: Head CT 01/12/2022, CTA head and neck 06/19/2019 TECHNIQUE: Following the IV administration of 115 mL of Optiray, CT angiogram of the head and neck was performed from the aortic arch to the skull apex. Images are reviewed in the axial, sagittal, and coronal planes. 3-D MIPS images are created and assessed. IV contrast was administered without complication. All measurements were calculated based on NASCET criteria. Noncontrast head CT also obtained. A dose lowering technique was utilized adhering to the principles of ALARA. CT DOSE: 1012.32 mGy.cm FINDINGS: CT HEAD: No acute intracranial hemorrhage, midline shift, abnormal extra axial collection, hydrocephalus, acute territorial infarct or intracranial mass. Calcifications of the falx cerebri. No acute calvarial fracture. The mastoid air cells and paranasal sinuses are generally clear. Unremarkable soft tissues and orbits. CTA HEAD AND NECK: Three-vessel morphology of the thoracic aortic arch. There is patency of the innominate and imaged subclavian arteries. The common carotid arteries are widely patent. Internal carotid arteries are also patent. The middle and anterior cerebral arteries are patent. The vertebral arteries are codominant and widely patent. Luminal narrowing of the distal V2 segment of the right vertebral artery at the level of C2 is a chronic finding. Mild luminal irregularity of the right V3 segment is also unchanged. The basilar and posterior cerebral arteries appear patent. Cerebral venous sinuses appear patent. There is no abnormal in tracranial enhancement identified. Lung apices are clear. No pneumothorax identified. 9 mm hypodense right-sided thyroid nodule. Unremarkable soft tissues. Degenerative changes of the cervical spine. IMPRESSION: 1. No acute intracranial abnormality. 2. Unremarkable CTA of the head and neck. ACT 112: Negative or not required by law. The above report was generated using voice recognition software. It may contain grammatical, syntax or spelling errors. Electronically signed by: Norris King M.D. 03/02/2022 10:57 AM Brain MRI 03/02/22 15:00 MR brain wo con HISTORY: 61 years-old Female CVA vs migraine acute dizziness with headache and strokelike symptoms. COMPARISON: Head CT 01/12/2022, brain MRI 04/11/2014 TECHNIQUE: Multiplanar multisequence MRI of the brain was obtained without the use of IV contrast. FINDINGS: No restricted diffusion to suggest acute or subacute infarct. Midline structures appear unremarkable. Mild degenerative changes of the imaged cervical spine. No acute intracranial hemorrhage, midline shift, abnormal extra-axial collection, hydrocephalus or intracranial mass. Minimal subcentimeter T2/FLAIR signal noted within the white matter of the cerebral hemispheres, likely of no clinical significance. Cerebral venous sinuses and major arterial flow voids appear patent. Skull, orbits and soft tissues are unremarkable. The mastoid air cells and paranasal sinuses appear clear. IMPRESSION: No acute intracranial abnormality. No acute or subacute infarct. ACT 112: Negative or not required by law. The above report was generated using voice recognition software. It may contain grammatical, syntax or spelling errors. Dictated: 03/02/2022 4:10 PM Transcribed: 03/02/2022 4:47 PM Adriana [id number] Electronically signed by: Norris King M.D. 03/02/2022 5:33 PM Cervical Spine MRI 03/02/22 15:00 MR cervical spine wo con HISTORY: 61 years-old Female left neck/head pain acute neck pain COMPARISON: CTA neck same day TECHNIQUE: Multiplanar multisequence MRI of the cervical spine was obtained without the use of IV contrast. FINDINGS: 1.4 cm T4 vertebral body hemangioma. No acute fracture, subluxation, endplate erosion or destructive bone lesion. Normal signal of the cervical and imaged upper thoracic spinal cord. 8 mm T2 hyperintense right thyroid nodule. No prevertebral edema. C2-C3: Mild intervertebral disc space narrowing with uncovertebral spurring and mild facet arthrosis. No central canal or neural foraminal narrowing. C3-C4: Mild intervertebral disc space narrowing with uncovertebral spurring and mild facet arthrosis. No central canal or neural foraminal narrowing. C4-C5: Mild to moderate intervertebral disc space narrowing with uncovertebral hypertrophy and small posterior disc osteophyte complex. Moderate facet arthrosis. The central canal is patent. Moderate right with [id number] left neural foraminal narrowing. C5-C6: Moderate intervertebral disc space narrowing. Circumferential annular disc bulge with posterior disc osteophyte complex and moderate facet arthrosis. Mild central canal stenosis with AP dimension of the thecal sac measuring 8 mm. Moderate bilateral neural foraminal narrowing. C6-C7: Mild facet arthrosis. No central canal or neural foraminal narrowing. C7-T1: Moderate facet arthrosis. No central canal or neural foraminal narrowing. IMPRESSION: 1. Discogenic degeneration of the cervical spine is most pronounced at C4-C5 and C5-C6 as above. 2. Mild central canal stenosis at C5-C6. 3. Normal signal of the cervical spinal cord. ACT 112: Negative or not required by law. The above report was generated using voice recognition software. It may contain grammatical, syntax or spelling errors. Electronically signed by: Norris King M.D. 03/02/2022 4:56 PM Medications Administered Current Inpatient Medications Acetaminophen (Acetaminophen 325 Mg Tab) 650 mg PO QID [facility] Stop: 04/02/22 16:59 Calcium Carbonate (Calcium Carbonate 500 Mg Chewable Tab) 500 mg PO [facility] Stop: 04/02/22 20:59 Diazepam (Diazepam 5 Mg Tablet) 5 mg PO [facility] Stop: 04/02/22 20:59 Hydromorphone HCl (Hydromorphone Hcl 2 Mg Tab) 2 mg PO Q4H PRN PRN Reason: Migraine Headache Stop: 03/16/22 14:59 Last Admin: 03/03/22 15:41 Dose: 2 mg Lactated Ringer's (Lr) 1,000 mls @ 80 mls/hr IV .[id number] [facility] Stop: 03/04/22 12:29 Last Admin: 03/03/22 11:56 Dose: 80 mls/hr Promethazine HCl 6.25 mg/ (Sodium Chloride) 50.25 mls @ 201 mls/hr IV Q6H PRN PRN Reason: Nausea And Vomiting Stop: 04/02/22 11:23 Last Infusion: 03/03/22 14:50 Dose: Infused Magnesium Sulfate/Dextrose (Magnesium Sulfate / D5w) 1 gm in 100 mls @ 50 mls/hr IV Q2H [facility] Stop: 03/03/22 23:59 Ketorolac Tromethamine (Ketorolac Tromethamine 15 Mg/Ml Vial) 15 mg IV Q6H PRN PRN Reason: Pain Stop: 03/08/22 15:52 Magnesium Hydroxide (Magnesium Hydroxide Susp 30 Ml Udc) 30 ml PO Q12H PRN PRN Reason: Constipation Stop: 04/01/22 14:59 Meclizine HCl (Meclizine Hcl 25 Mg Tab) 25 mg PO TID PRN PRN Reason: Dizziness Stop: 04/01/22 14:59 Melatonin (Melatonin 3 Mg Tab) 3 mg PO HS PRN PRN Reason: Sleep Stop: 04/01/22 14:59 Last Admin: 03/02/22 21:45 Dose: 3 mg Miscellaneous Information (Pharmacist Discharge Med Rec Consult) 1 each N/A UD PRN PRN Reason: Consult Stop: 04/01/22 14:59 Polyethylene Glycol (Polyethylene (Miralax) 17 Gm Pack) 17 gm PO DAILY PRN PRN Reason: Constipation Stop: 04/01/22 14:59 Resident Activity Tracking Resident Involvement: Resident Care Provided Care Provided: Adult Hospital Medicine (1) Migraine headache Intractability: not intractable Migraine type: other Status migrainosus presence: without status migrainosus Qualified Code(s): G43.809 - Other migrai ne, not intractable, without status migrainosus
[2022-03-03] MEDS ORDERED: HYDROmorphone INJ 0.5 MG/0.5 ML SYR ONE (09:22)
[2022-03-03] MEDS ORDERED: HYDROmorphone INJ 0.5 MG/0.5 ML SYR IV STA (09:25)
[2022-03-03 10:07] LABS: Basophils # (auto) 0.02 K/uL (0-0.2); Basophils % (auto) 0.2 %; Eosinophils # (auto) 0.12 K/uL (0-0.50); Eosinophils % (auto) 1.3 %; Hematocrit (blood only) 42.3 % (34.1-44.9); Hemoglobin 14.5 g/dl (12.0-16.0); Immature Granulocytes # (auto) 0.18 K/uL (0.00-0.02); Immature Granulocytes % (auto) 1.9 %; Lymphocytes # (auto) 1.26 K/uL (1.2-3.4); Lymphocytes % (auto) 13.6 %; Mean Corpuscular Hemoglobin 30.1 pg (25.0-34.0); Mean Corpuscular Hgb Conc 34.3 g/dL (32.0-36.0); Mean Corpuscular Volume 87.8 fL (80.0-100.0); Mean Platelet Volume 9.4 fL (9.4-12.3); Monocytes # (auto) 0.47 K/uL (0.24-0.82); Monocytes % (auto) 5.1 %; Neutrophils # (auto) 7.19 K/uL (1.4-6.5); Neutrophils % (auto) 77.9 %; Platelet Count 265 K/uL (130-400); RDW Standard Deviation 38.7 fL (36.4-46.3); Red Blood Count 4.82 M/uL (3.93-5.22); White Blood Count 9.24 K/ul (4.8-10.8)
[2022-03-03 10:34] LABS: BUN Creatinine Ratio 19.1 (10-20); Calcium 9.7 mg/dl (8.5-10.1); Chol HDL Ratio 4.1 (0-5); Creatinine Clr Calc Pharmacy 92.7 ml/min; Est GFR (African American) 110.2 ml/min; Est GFR (Non-African American) 95.1 ml/min
[2022-03-03] MEDS ORDERED: PROMETHAZINE HCL 6.25 MG in SODIUM CHLORIDE 0.9% 50 ML IV PRN (11:24)
[2022-03-03] MEDS: LACTATED RINGER'S 1,000 ML IV SCH ×2 (11:56→23:20)
[2022-03-03] MEDS ORDERED: KETOROLAC TROMETHAMINE 15 MG/ML VIAL IV PRN (15:53)
[2022-03-03] MEDS ORDERED: diazePAM 5 MG TABLET PO ONE (16:00)
[2022-03-03] MEDS ORDERED: KETOROLAC TROMETHAMINE 15 MG/ML VIAL IV ONE (16:00)
[2022-03-03] MEDS ORDERED: CALCIUM CARBONATE 500 MG CHEWABLE TAB PO ONE (16:00)
[2022-03-03] MEDS: ACETAMINOPHEN 325 MG TAB PO SCH ×2 (16:51→21:17)
[2022-03-03] MEDS: MAGNESIUM SULFATE / D5W 1 GM/100 ML BAG IV SCH ×4 (16:52→23:20)
--- NOTE | 2022-03-03 17:52 | XCELERA ---
[id number]
--- NOTE | 2022-03-03 18:23 | Billing Data ---
Date of Service March 03, 2022 Coding Level of Care Code 39358 Subseq Obs Care Lvl 3
--- NOTE | 2022-03-03 20:42 | Electrocardiogram Report ---
Test Reason : Blood Pressure : / mmHG Vent. Rate : 065 BPM Atrial Rate : 065 BPM P-R Int : 146 ms QRS Dur : 074 ms QT Int : 408 ms P-R-T Axes : 044 055 066 degrees QTc Int : 424 ms Normal sinus rhythm Normal ECG When compared with ECG of 12-JAN-2022 11:07, No significant change was found Confirmed by Zan Soto ([id number]) on 03/03/2022 8:41:55 PM Referred By: REFERRED SELF Confirmed By:Zan Soto
[2022-03-03] MEDS: diazePAM 5 MG TABLET PO SCH (21:17)
[2022-03-03] MEDS: CALCIUM CARBONATE 500 MG CHEWABLE TAB PO SCH (21:18)
--- NOTE | 2022-03-04 07:03 | Discharge Summary ---
Date of Service March 04, 2022 Admission HPI Per Admitting Provider Vira Reynodls is a 61-year-old female with a past medical history of migraines, chronic fatigue, insomnia who is presenting today with dizziness. She does have a past medical history for migraine headaches, and had one that came on very rapidly last night in the back of her head on the left side. She took Zomig and went to bed, however woke up this morning still with headache and had severe dizziness and cannot look straight due to that. While trying to walk, she did actually collapsed due to the dizziness and had to crawl on the ground to mvoe throughout her home. Over the last 2 days she has had some intermittent double vision which is new for her. She was severely hypertensive for EMS en route with a systolic BP reported to be in the 200s, had come down to 180s upon arrival. She does not have history of high blood pressure. There was concern for carbon monoxide poisoning so the fire department checked her home and it was clear, her carbon monoxide levels checked here, 1.1%. Patient is a typical migraine for her is unilateral, comes on very quickly and lasts for hours until it resolves with medication. She has associated nausea and occasional vomiting has not had any auras with her migraines for several years. Her headache today is different and that it is coming and going and associated with severe dizziness which she has never experienced before with migraine. She does spend a significant amount of time outside and trail rides with her horse. She recently had takes and was treated, she checked herself for ticks and did not see any, but cannot say for certain she has not had a tick bite recently. She also has left-sided head/neck tightness and limited range of motion. States this is very unusual for her as she does sandra chi and is very flexible. On presentation, she was mildly hypertensive and tachycardic, SPO2 dropped transiently with diazepam and Dilaudid, now SPO2 >95% on room air. Her labs are unremarkable. Head CT/CTA, neck CTA unrevealing for any hemorrhage, mass- effect, ischemia, aneurysm, dissection. Discharge Data Allergies Allergy/AdvReac Type Severity Reaction Status Date / Time latex Allergy Mild RASH Verified 03/02/22 09:01 Consultations 03/02/22 11:34 ED Decision to Admit Stat 03/03/22 09:37 Consult Behavioral Health Liaison Routine Ordered Studies 03/02/22 09:04 CT angio head wo/w Stat CT angio neck with con Stat 03/02/22 15:00 MR brain wo con Routine MRI Neck [MR cervical spine wo con] Routine Hospital Course (1) Migraine headache: - 12+ hours of left occipital headache with some nausea, double vision x2 days, and severe dizziness this morning. Also reports brain fog, slow speech. No focal numbness/tingling/weakness. Gait intact. Speech is slow, however clear nonsensical. - Differential at this point is complex migraine versus CVA versus tickborne illness. No fever/chills, elevated WC, or meningeal signs to suggest meningitis. - Lyme/anaplasmosis/Babesia negative - Continue Tylenol, Dilaudid for migraine headache pain. - Meclizine as needed for dizziness. - CT/CTA head, CTA neck unrevealing for acute process. - MRI brain + neck negative for acute process or stenosis - Echo pending -Regular diet. - PRN phenergan for nausea - PT, OT, ST ordered, patient does not have a swallowing dysfunction can go home at discharge - Telemetry to evaluate for episodes of atrial fibrillation. - Given her negative studies and symptoms so far, will rule out stroke, patient may use nsaids for pain management - likely a concern her persistent migraine and pain have some relation to tension headache and anxiety, will try OMM and benzo to help relieve pain -consulted hoe runner per patient request, consulted to connect with local resources (2) Chronic fatigue syndrome: (3) Chronic insomnia: - Melatonin ordered prn; no home meds for this. (4) Dizziness: - Stroke vs migraine headache. - Meclizine PRN. - PT/OT. Discharge Plan Discharge Items Patient Disposition: Home - Self-Care Reason For Visit: CVA VS MIGRAINE Discharge Diagnosis: Migraine Activity: Resume your previous activity Non-emergency contact: Primary Care Provider Call non-emergency contact if: you have any medication questions Follow-up/Referrals: Ida Stacy MD [Primary Care Provider] - Diet: Regular Addtl Attending Provider Instructions: You were admitted to the hospital for persistent headache found to be a migraine. We have ruled out stroke given your imaging and presentation. We treated your migraine with a combination of pain medication, anxiety medication, and muscle manipulation to try to relieve the strain on your head. At this point in time your symptoms have improved. A discharge summary will be sent to your primary care physician to ensure continuity of care. Please bring this discharge summary with you to your next office appointment so that your provider can review it at that time. Follow-up appointments: [ Make a follow-up appointment with your PCP within the next week. It is very important that you follow up with them shortly after discharge from the hospital.] [ We have requested a follow-up appointment with your primary care physician within one week of discharge. Please call their office if you do not hear from them.] [ You have an appointment with _ on _ at _. If you are unable to make this appointment, or have any other questions, their office can be reached at _.] Keep all your follow-up appointments as already scheduled. If you cannot make an appointment, notify your provider. Medications: Your medication list has been reviewed and reconciled upon discharge to ensure accuracy and continuity of care. An updated list of all your medications is included with your hospital discharge paperwork. Please review this list closely, and make note of any changes. * We sent a new medication called [med name] to your pharmacy. Take [med name] ([_]mg) [one tablet] [daily] [for _ days]. * We sent a new medication called [med name] to your pharmacy. Take [med name] ([_]mg) [one tablet] [daily] [for _ days]. Take your medications as instructed; do not skip a dose of your medicines. Make sure all of your doctors know every medicine you are taking (including [id number]-yrnvfyg medicines, vitamins, and supplements). Call your primary care provider before taking any new medicines (including mwsg-svm-fdwkqxf medicines, vitamins, and supplements), because some of these may interact with your current medications, or may make your symptoms worse. Tell your primary care provider if you cannot afford your medications. CONTACT YOUR PRIMARY CARE PROVIDER if you experience any of the following: [_] [_] Difficulty following your treatment plan, or difficulty taking medications CALL 911 OR GO TO THE EMERGENCY DEPARTMENT if you experience any of the following: Sudden, severe abdominal pain or nausea/vomiting Severe chest pain, or chest pain that radiates (moves) to your jaw or arm Sudden, severe shortness of breath or difficulty breathing Thank you for allowing us to participate in your care. Pending Studies at Discharge: No Stand-Alone Forms: My [facility], Smoking Cessation Medications and DC Order Prescriptions: No Action zolmitriptan 5 mg tablet Admission Data Admit Date/Time: 03/02/22 11:55 Attending Provider: Baldomero Rashid Admit Provider: Karuna Kiser Primary Care Provider: Ida Stacy Other Providers: Dustin Fajardo ; Nikolas Canchola
[2022-03-04 08:39] LABS: Basophils # (auto) 0.05 K/uL (0-0.2); Basophils % (auto) 0.5 %; Eosinophils # (auto) 0.14 K/uL (0-0.50); Eosinophils % (auto) 1.3 %; Hemoglobin 14.4 g/dl (12.0-16.0); Immature Granulocytes # (auto) 0.04 K/uL (0.00-0.02); Immature Granulocytes % (auto) 0.4 %; Lymphocytes # (auto) 1.58 K/uL (1.2-3.4); Lymphocytes % (auto) 14.9 %; Mean Corpuscular Hemoglobin 30.2 pg (25.0-34.0); Mean Corpuscular Hgb Conc 34.3 g/dL (32.0-36.0); Mean Corpuscular Volume 88.1 fL (80.0-100.0); Monocytes # (auto) 0.75 K/uL (0.24-0.82); Monocytes % (auto) 7.1 %; Neutrophils # (auto) 8.03 K/uL (1.4-6.5); Neutrophils % (auto) 75.8 %; Platelet Count 290 K/uL (130-400); RDW Coefficient of Variation 11.9 % (11.5-14.5); RDW Standard Deviation 38.5 fL (36.4-46.3); Red Blood Count 4.77 M/uL (3.93-5.22); White Blood Count 10.59 K/ul (4.8-10.8)
[2022-03-04] MEDS: HYDROmorphone HCL 2 MG TAB PO PRN (08:47)
[2022-03-04 08:59] LABS: Estimated Average Glucose 111 mg/dl; Hemoglobin A1C 5.5 % (4.5-5.6)
[2022-03-04 09:13] LABS: BUN Creatinine Ratio 15.3 (10-20); Calcium 9.1 mg/dl (8.5-10.1); Creatinine Clr Calc Pharmacy 86.1 ml/min; Est GFR (African American) 105.5 ml/min; Potassium 3.8 mmol/L (3.5-5.1)
[2022-03-04] MEDS ORDERED: KETOROLAC TROMETHAMINE 15 MG/ML VIAL IV ONE (09:29)
[2022-03-04] MEDS: ACETAMINOPHEN 325 MG TAB PO SCH ×4 (09:43→20:57)
--- NOTE | 2022-03-04 12:33 | Neurology Consultation ---
Date of Consultation March 04, 2022 Assessment & Plan (1) Status migrainosus: (2) Migraine with vertigo: Plan For treatment of status migrainosus, would recommend IV fluids, parenteral medications including Toradol. Would also recommend IV Depakote, 500 mg twice daily while in the hospital. Would not anticipate need to continue Depakote as an outpatient, however. Would also recommend a trial of Imitrex 6 mg subcu if patient's migraine returns. Would also recommend giving a single dose of IV dexamethasone, 10 mg x 1 at this time. I do anticipate patient's headache cycle to eventually resolve. However, if she remains symptomatic, may need to stay for an additional night in the hospital. Patient may follow-up with me in clinic in the next 3 to 4 weeks. History of Present Illness Reason for Consultation: Status migrainosus Requesting Physician: Dr. Ndiaye Attending Physician: Baldomero Rashid, History of Present Illness The patient is a 61-year-old female who is known to me. She was last evaluated in neurology clinic in February 2018 regarding a history of episodic migraine. Her migraines had previously been well controlled with Ajovy and zolmitriptan tablets. She eventually self discontinued the Ajovy given her overall low migr randal frequency and has been doing very well. She reports experiencing less than 1 migrainous episode per month at this point in time. Zomig is typically helpful for acute treatment. He does have a history of multiple medication failures including Depakote, topiramate, verapamil, and several other triptans. She had presented to the emergency department on March 02, 2022 for migraine and associated vertigo. She describes a sensation of motion, some spinning, typically worse with movement, seems to improve if she lies perfectly still. She has not had migraine associated vertigo previously. Her Zomig was not helpful for this particular headache and associated vertigo and she subsequently sought further evaluation and management in the emergency department. She has been modestly hypertensive at times over the past few years. She is not on any medication for hypertension. She has had fairly benign neuroimaging during this hospitalization including CT of the head, CT angiography of the head and neck, and brain MRI. Cervical spine MRI fairly unremarkable as well, does have mild to moderate degenerative disc disease at C4-5 and C5-6 without significant central canal or foraminal stenosis. She has been afebrile. Does not complain of neck stiffness. She does not have a leukocytosis or any significant abnormality on routine screening lab evaluation. She has been treated IV Toradol, promethazine, and Dilaudid. She has also received meclizine and diazepam. This morning, she reports that her symptoms are actually significantly improved although she attributes her improvement to her current medications. She expresses concern as to whether or not her headache and vertigo may return. Allergies Allergy/AdvReac Type Severity Reaction Status Date / Time latex Allergy Mild RASH Verified 03/02/22 09:01 Home Medications Medication Instructions Recorded Confirmed Type zolmitriptan 5 mg tablet mg 03/02/22 History Patient History Medical History (Updated 03/04/22 @ 12:30 by Nikolas Canchola MD) Abdominal pain, diffuse Chronic fatigue syndrome Chronic insomnia Diffuse abdominal pain Dysarthria Episode of unresponsiveness HTN (hypertension) Influenza A Migraine headache Sinusitis Stomach problems TIA (transient ischemic attack) Surgical History History of dilatation and curettage History of sinus surgery History of tooth extraction Family History Family/Other Breast cancer Alcoholism Other No pertinent family history in first degree relatives Social History Smoking Status: Never smoker Preferred Language: Latvian marital status: Single Current Living Situation: Alone current occupational status: employed Feels Safe at Home: Yes Assistive Devices: None Review of Systems Constitutional: no fever and no chills Eyes: no blind spots and no diplopia Ear, Nose, Mouth, Throat: + dizziness; no ear pain and no hearing loss Respiratory: no cough and no dyspnea Cardiovascular: no chest pain and no palpitations Gastrointestinal: + nausea Genitourinary: no dysuria Musculoskeletal: no back pain, no neck pain and no myalgia Integumentary: no rash and no lesions Neurologic: as per Subjective / HPI Psychiatric: no depression and no anxiety Hematologic / Lymphatic: no easy bleeding and no easy bruising Exam (Neuro) Constitutional: well developed and well nourished; no acute distress Eyes: normal visual hale by confrontation, PERRL, normal accommodation and EOM intact bilaterally; no fundoscopic abnormality, no nystagmus and no papilledema Cardiovascular: Vessels: normal carotid upstroke; no carotid bruit Neurologic: Oriented to:: Person, Place and Time Memory: Short Term Intact and Remote Intact Attention: Span Intact and Concentration Intact Language: Naming Objects and Repeating Phrases Speech Fluency: negative Dysarthria Speech Aphasia: negative Aphasia Fund of Knowledge: Current Events, Past History and Vocabulary Cranial Nerves: Normal II (Visual hale full to confrontation, visual acuity normal), III, IV, (Pupils equal round reactive to light and accommodation, eye movements normal), V (Facial sensation intact), VII (There is no facial droop or weakness), VIII (Hearing intact), IX, X (Palate elevates to midline), XI (Shoulder shrug intact) and XII (Tongue protrudes to midline) Motor Strength: Normal Lower Extremities and Normal Upper Extremities; negative Pronator Drift Motor Tone: Normal Lower Extremities and Normal Upper Extremities Muscle Bulk/Involuntary Movements: No Involuntary Movements; negative Muscle Atrophy Sensation: Light Touch Intact, Pain/Temperature Intact, Vibration Intact and Proprioception Intact Coordination: Normal; negative Limited Balance, Dysdiadochokinesia, Finger-Nose Abnormal or Heel-Hogan Abnormal Deep Tendon Reflexes: Rt Triceps: 2+, Lt Triceps: 2+, Rt Biceps: 2+, Lt Biceps: 2+, Rt Brachioradialis: 2+, Lt Brachioradialis: 2+, Rt Patellar: 2+, Lt Patellar: 2+, Rt Ankle: 2+ and Lt Ankle: 2+ Special Tests: negative Babinski Present Gait: Normal Station and Gait Results & Data ([facility]) Vital Signs (Past 12 Hours) Vital Signs Temp Pulse Pulse Resp BP BP Pulse Ox 03/04/22 11:09 36.9 C 87 21 138/83 97 03/04/22 07:40 36.9 C 80 21 146/86 H 97 03/04/22 07:00 79 03/04/22 03:07 36.8 C 79 18 163/84 H 90 03/04/22 01:03 86 O2 Del Method 03/04/22 11:09 Room Air 03/04/22 07:40 Room Air 03/04/22 07:00 03/04/22 03:07 Room Air 03/04/22 01:03 Laboratory Results WBC 10.59, hemoglobin 14.4, hematocrit 42.0, MCV 88.1, platelet count 290, sodium 140, potassium 3.8, BUN 11, creatinine 0.72, glucose 92, calcium 9.1, AST 15, ALT 21, SARS-CoV-[address] of the head, CT angiogram of the head and neck, and brain MRI are all unremarkable. No evidence of hemorrhage or acute process. No evidence of stroke or vascular lesion. MRI of the cervical spine reveals mild to moderate degenerative disc disease as described in the history of present illness. I independently reviewed the images as well as the radiologist interpretation of these tests. An echocardiogram reveals normal left ventricular size and systolic function, no regional wall motion abnormalities, no left ventricular hypertrophy, no significant valvular abnormalities. Coding Level of Care Code 08992 Initial Inpt Care Lvl 3 Diagnoses Status migrainosus G43.901 Migraine with vertigo G43.109
[2022-03-04] MEDS ORDERED: dexAMETHasone 10 MG in SYRINGE 0 ML IV ONE (12:45)
[2022-03-04] MEDS: VALPROATE SOD 500 MG in DEXTROSE 5% 50 ML IV SCH (13:34)
--- NOTE | 2022-03-04 16:52 | Hospitalist Progress Note ---
Date of Service March 04, 2022 Assessment & Plan (1) Migraine headache: Plan: - 12+ hours of left occipital headache with some nausea, double vision x2 days, and severe dizziness this morning. Also reports brain fog, slow speech. No focal numbness/tingling/weakness. Gait intact. Speech is slow, however clear nonsensical. - Differential at this point is complex migraine versus CVA versus tickborne illness. No fever/chills, elevated WC, or meningeal signs to suggest meningitis. - Lyme/anaplasmosis/Babesia negative - Continue Tylenol, Dilaudid for migraine headache pain. - Meclizine as needed for dizziness. - CT/CTA head, CTA neck unrevealing for acute process. - MRI brain + neck negative for acute process or stenosis - Echo EF 65-70% -Regular diet. - PRN phenergan for nausea - PT, OT, ST ordered, patient does not have a swallowing dysfunction can go home at discharge - Telemetry to evaluate for episodes of atrial fibrillation. - Given her negative studies and symptoms so far, will rule out stroke, patient may use nsaids for pain management - likely a concern her persistent migraine and pain have some relation to tension headache and anxiety, OMT benzo Mg toradol did help however migraine returned -consulted restaurant kitchen and service manager per patient request, consulted to connect with local resources -consulted neurology: continue IV toradol can try IV depakote 500mg bid in hospital, trial subQ imitrex if migraine return, no depakote in outpatient at this time. Will also give 1 dose dexamethasone. F/u in 3-4 weeks (2) Chronic fatigue syndrome: (3) Chronic insomnia: Plan: - Melatonin ordered prn; no home meds for this. (4) Dizziness: Plan: - Stroke vs migraine headache. - Meclizine PRN. - PT/OT. Admission and Anticipated Discharge Date Admission Date: March 02, 2022 Supervising Physician Co-Signing Physician Notes I also saw the patient confirmed velázquez portions of the history and physical examination. I agree with the impression plan as noted the resident documentation. EXAM 137/81, 78, 18, 37.1, 95% room air Alert and oriented. Speech is clear. Thought process well organized. Affect appropriate Heart regular rate and rhythm Respirations nonlabored DATA CBC, BMP unremarkable IMPRESSION & PLAN Status migrainosus Vertigo Neurology consultation Additional per resident documentation Subjective Patient seen at bedside, states she slept well after the medication last night however headache returned in morning, states the OMT helped for muscle strain and requested additional treatment. Patient was able to speak to restaurant kitchen and service manager this morning. She would like to reconnect with Neurology for further management of her migraines. Review of Systems Review of Systems: positive headache Negative fever chills Negative chest pain palpitations SOB Negative nausea vomitting diarrhea constipation Physical Exam Constitutional: WD/WN, vitals as above Eyes: PERRL, conjunctivae normal, anicteric sclerae ENMT: external ear and nose normal, oropharynx normal Neck: trachea midline, no thyromegaly Respiratory: normal respiratory effort, lungs clear to auscultation Cardiovascular: RRR, no murmur, no edema Chest (Breasts): normal inspection/palpation of breasts Gastrointestinal (Abdomen): normal bowel sounds, soft, nontender, no hepatosplenomegaly Musculoskeletal: no cyanosis or clubbing, extremities motor strength 5/5 tight cervical paraspinal muscles noted with tenderpoint at right C1 Skin: no rashes, warm and dry Neurologic: normal touch/pain/proprioception and CN's II-XI intact bilaterally Psychiatric: Orientation: alert and oriented x 3 Affect: + anxious affect Results & Data Results & Data ([facility]) Vital Signs (Past 12 Hours) Vital Signs Temp Pulse Pulse Resp BP BP Pulse Ox 03/04/22 15:00 85 03/04/22 15:00 03/04/22 15:01 37.1 C 78 18 137/81 95 03/04/22 11:09 36.9 C 87 21 138/83 97 03/04/22 07:40 36.9 C 80 21 146/86 H 97 03/04/22 07:00 79 Pulse Ox O2 Del Method O2 Del Method 03/04/22 15:00 03/04/22 15:00 94 Room Air 03/04/22 15:01 Room Air 03/04/22 11:09 Room Air 03/04/22 07:40 Room Air 03/04/22 07:00 Laboratory Results 03/04/22 03/04/22 03/03/22 Range/Units 07:02 07:02 09:54 WBC 10.59 (4.8-10.8) K/ul RBC 4.77 (3.93-5.22) M/uL Hgb 14.4 (12.0-16.0) g/dl Hct 42.0 (34.1-44.9) % MCV 88.1 (80.0-100.0) fL MCH 30.2 (25.0-34.0) pg MCHC 34.3 (32.0-36.0) g/dL RDW Std Deviation 38.5 (36.4-46.3) fL RDW Coeff of Ronna 11.9 (11.5-14.5) % Plt Count 290 (130-400) K/uL MPV 10.0 (9.4-12.3) fL Immature Gran % (Auto) 0.4 % Neut % (Auto) 75.8 % Lymph % (Auto) 14.9 % [place] % (Auto) 7.1 % Eos % (Auto) 1.3 % Baso % (Auto) 0.5 % Neut # (Auto) 8.03 H (1.4-6.5) K/uL Lymph # (Auto) 1.58 (1.2-3.4) K/uL [place] # (Auto) 0.75 (0.24-0.82) K/uL Eos # (Auto) 0.14 (0-0.50) K/uL Baso # (Auto) 0.05 (0-0.2) K/uL Immature Gran # (Auto) 0.04 H (0.00-0.02) K/uL Sodium 140 (136-145) mmol/L Potassium 3.8 (3.5-5.1) mmol/L Chloride 106 (98-107) mmol/L Carbon Dioxide 29 (21-32) mmol/L Anion Gap 5 (3-11) BUN 11 (6-23) mg/dl Creatinine 0.72 (0.6-1.2) mg/dl Est Cr Clr Drug Dosing 86.1 ml/min Est GFR ( Amer) 105.5 ml/min Est GFR (Non-Af Amer) 91.0 ml/min BUN/Creatinine Ratio 15.3 (10-20) Glucose 92 (70-99(Fasting)) mg/dl Estimat Average Glucose 111 mg/dl Hemoglobin A1c 5.5 (4.5-5.6) % Calcium 9.1 (8.5-10.1) mg/dl Medications Administered Current Inpatient Medications Acetaminophen (Acetaminophen 325 Mg Tab) 650 mg PO QID RACHELLE Stop: 04/02/22 16:59 Last Admin: 03/04/22 16:38 Dose: Not Given Calcium Carbonate (Calcium Carbonate 500 Mg Chewable Tab) 500 mg PO HS RACHELLE Stop: 04/02/22 20:59 Last Admin: 03/03/22 21:18 Dose: 500 mg Diazepam (Diazepam 5 Mg Tablet) 5 mg PO HS RACHELLE Stop: 04/02/22 20:59 Last Admin: 03/03/22 21:17 Dose: 5 mg Hydromorphone HCl (Hydromorphone Hcl 2 Mg Tab) 2 mg PO Q4H PRN PRN Reason: Migraine Headache Stop: 03/16/22 14:59 Last Admin: 03/04/22 08:47 Dose: 2 mg Promethazine HCl 6.25 mg/ (Sodium Chloride) 50.25 mls @ 201 mls/hr IV Q6H PRN PRN Reason: Nausea And Vomiting Stop: 04/02/22 11:23 Last Infusion: 03/03/22 14:50 Dose: Infused Valproic Acid 500 mg/ Dextrose 55 mls @ 55 mls/hr IV Q12H RACHELLE Stop: 04/03/22 12:59 Last Infusion: 03/04/22 14:34 Dose: Infused Ketorolac Tromethamine (Ketorolac Tromethamine 15 Mg/Ml Vial) 15 mg IV Q6H PRN PRN Reason: Pain Stop: 03/08/22 15:52 Magnesium Hydroxide (Magnesium Hydroxide Susp 30 Ml Udc) 30 ml PO Q12H PRN PRN Reason: Constipation Stop: 04/01/22 14:59 Meclizine HCl (Meclizine Hcl 25 Mg Tab) 25 mg PO TID PRN PRN Reason: Dizziness Stop: 04/01/22 14:59 Melatonin (Melatonin 3 Mg Tab) 3 mg PO HS PRN PRN Reason: Sleep Stop: 04/01/22 14:59 Last Admin: 03/02/22 21:45 Dose: 3 mg Polyethylene Glycol (Polyethylene (Miralax) 17 Gm Pack) 17 gm PO DAILY PRN PRN Reason: Constipation Stop: 04/01/22 14:59 Resident Activity Tracking Resident Involvement: Resident Care Provided Care Provided: Adult [facility] Medicine (1) Migraine headache Intractability: not intractable Migraine type: other Status migrainosus presence: without status migrainosus Qualified Code(s): G43.809 - Other migraine, not intractable, without status migrainosus
[2022-03-04] MEDS: diazePAM 5 MG TABLET PO SCH (20:57)
[2022-03-04] MEDS: CALCIUM CARBONATE 500 MG CHEWABLE TAB PO SCH (20:57)
[2022-03-04] MEDS ORDERED: VALPROATE SOD 500 MG in DEXTROSE 5% 50 ML IV SCH (21:00)
[2022-03-05] MEDS: VALPROATE SOD 500 MG in DEXTROSE 5% 50 ML IV SCH (00:35)
--- NOTE | 2022-03-05 07:00 | Discharge Summary ---
Date of Service March 05, 2022 Admission HPI Per Admitting Provider Vira Reynolds is a 61-year-old female with a past medical history of migraines, chronic fatigue, insomnia who is presenting today with dizziness. She does have a past medical history for migraine headaches, and had one that came on very rapidly last night in the back of her head on the left side. She took Zomig and went to bed, however woke up this morning still with headache and had severe dizziness and cannot look straight due to that. While trying to walk, she did actually collapsed due to the dizziness and had to crawl on the ground to mvoe throughout her home. Over the last 2 days she has had some intermittent double vision which is new for her. She was severely hypertensive for EMS en route with a systolic BP reported to be in the 200s, had come down to 180s upon arrival. She does not have history of high blood pressure. There was concern for carbon monoxide poisoning so the fire department checked her home and it was clear, her carbon monoxide levels checked here, 1.1%. Patient is a typical migraine for her is unilateral, comes on very quickly and lasts for hours until it resolves with medication. She has associated nausea and occasional vomiting has not had any auras with her migraines for several years. Her headache today is different and that it is coming and going and associated with severe dizziness which she has never experienced before with migraine. She does spend a significant amount of time outside and trail rides with her horse. She recently had takes and was treated, she checked herself for ticks and did not see any, but cannot say for certain she has not had a tick bite recently. She also has left-sided head/neck tightness and limited range of motion. States this is very unusual for her as she does sandra chi and is very flexible. On presentation, she was mildly hypertensive and tachycardic, SPO2 dropped transiently with diazepam and Dilaudid, now SPO2 >95% on room air. Her labs are unremarkable. Head CT/CTA, neck CTA unrevealing for any hemorrhage, mass- effect, ischemia, aneurysm, dissection. Admission Exam Per Admitting Provider General: awake, alert, no apparent distress Head: Normocephalic, atraumatic ENT: PERRL, EOMI, no pharyngeal exudate, mucous membranes moist Chest: Clear to auscultation, on room air, no adventitious breath sounds Cardiac: Regular rate and rhythm, no murmur, no JVD, normal peripheral pulses, good capillary refill Abdominal: NABS x 4 quadrants, soft, nontender to palpation, no rebound, guarding or tenderness Extremities: left paraspinal muscle tenderness with limited ROM due to stiffness; otherwise normal inspection, no peripheral edema or erythema, calfs nontender to palpation Psych: Normal mood and affect Neuro: AAO x 3, strength intact bilaterally and rated 5/5, no motor deficits, speech is clear, no peripheral sensory deficits Skin: no rash or erythema Principal Diagnosis Migraine Discharge Exam Constitutional WD/WN, vitals as above Eyes PERRL, conjunctivae normal, anicteric sclerae ENMT external ear and nose normal, oropharynx normal Neck trachea midline, no thyromegaly Respiratory normal respiratory effort, lungs clear to auscultation Cardiovascular RRR, no murmur, no edema Gastrointestinal (Abdomen) normal bowel sounds, soft, nontender, no hepatosplenomegaly Skin no rashes, warm and dry Discharge Data Allergies Allergy/AdvReac Type Severity Reaction Status Date / Time latex Allergy Mild RASH Verified 03/02/22 09:01 Consultations 03/02/22 11:34 ED Decision to Admit Stat 03/03/22 09:37 Consult Behavioral Health Liaison Routine 03/04/22 11:28 Consult Neurology Routine Ordered Studies 03/02/22 09:04 CT angio head wo/w Stat CT angio neck with con Stat 03/02/22 15:00 MR brain wo con Routine MRI Neck [MR cervical spine wo con] Routine Hospital Course (1) Migraine headache: (1) Migraine headache: Plan: - 12+ hours of left occipital headache with some nausea, double vision x2 days, and severe dizziness prior to admit. Also reports brain fog, slow speech. No focal numbness/tingling/weakness. Gait intact. Speech is slow, however clear nonsensical. - Differential: complex migraine versus CVA versus tickborne illness. No fever/chills, elevated WC, or meningeal signs to suggest meningitis. - Lyme/anaplasmosis/Babesia negative - started Tylenol, Dilaudid for migraine headache pain. - Meclizine as needed for dizziness. - CT/CTA head, CTA neck unrevealing for acute process. - MRI brain + neck negative for acute process or stenosis - Echo EF 65-70% -Regular diet. - PRN phenergan for nausea - PT, OT, ST ordered, patient does not have a swallowing dysfunction can go home at discharge - Telemetry no signs atrial fibrillation. - Given her negative studies and symptoms so far, will rule out stroke, patient may use nsaids for pain management - likely a concern her persistent migraine and pain have some relation to tension headache and anxiety, OMT benzo Mg toradol did help however migraine returned -consulted telegraph dispatcher per patient request, consulted to connect with local resources -consulted neurology: continue IV toradol can try IV depakote 500mg bid in hospital, trial subQ imitrex if migraine return, no depakote in outpatient at this time. Will also give 1 dose dexamethasone. F/u in 3-4 weeks Patient states this combination helped break her migraine, is happy having neurology f/u (2) Chronic fatigue syndrome: (3) Chronic insomnia: (4) Dizziness: Total Time Total Time Spent Total Time Spent (In Minutes): 20 minutes Discharge Plan Discharge Items Patient Disposition: Home - Self-Care Reason For Visit: CVA VS MIGRAINE Discharge Diagnosis: Migraine Activity: Resume your previous activity Non-emergency contact: Primary Care Provider Call non-emergency contact if: you have any medication questions Follow-up/Referrals: Nikolas Canchola MD [Physician] - 03/19/22 2:00 pm (This appointment will be with Karen) Ida Stacy MD [Primary Care Provider] - 03/12/22 10:00 am (This appointment will be with Dr. Blake at the [facility] [address] [facility] in [place].) Lucinda Hernandez MD [Physician] - (1-2 months) Diet: Regular Addtl Attending Provider Instructions: You were admitted to the hospital for persistent headache found to be a migraine. We have ruled out stroke given your imaging and presentation. We treated your migraine with a combination of pain medication, anxiety medication, and muscle manipulation to try to relieve the strain on your head. You were seen by Neurology, and treated with Depakote and a small dose of steroids to relieve your migraine. Your symptoms have improved at this time. We will arrange a follow up appointment with your Neurologist for better managent of your migraine in outpatient setting. A discharge summary will be sent to your primary care physician to ensure continuity of care. Please bring this discharge summary with you to your next office appointment so that your provider can review it at that time. Follow-up appointments: Make a follow-up appointment with your PCP within the next week. It is very important that you follow up with them shortly after discharge from the hospital. We have requested a follow-up appointment with your Neurologist in 3-4 weeks. Keep all your follow-up appointments as already scheduled. If you cannot make an appointment, notify your provider. Medications: Your medication list has been reviewed and reconciled upon discharge to ensure accuracy and continuity of care. An updated list of all your medications is included with your hospital discharge paperwork. Please review this list closely, and make note of any changes. Take your medications as instructed; do not skip a dose of your medicines. Make sure all of your doctors know every medicine you are taking (including [id number] medicines, vitamins, and supplements). Call your primary care provider before taking any new medicines (including drya-gag-hqbrlhg medicines, vitamins, and supplements), because some of these may interact with your current medications, or may make your symptoms worse. Tell your primary care provider if you cannot afford your medications. CONTACT YOUR PRIMARY CARE PROVIDER if you experience any of the following: Persistent nausea, fever, changes in vision Difficulty breathing Difficulty following your treatment plan, or difficulty taking medications CALL 911 OR GO TO THE EMERGENCY DEPARTMENT if you experience any of the following: Sudden, severe abdominal pain or nausea/vomiting Severe chest pain, or chest pain that radiates (moves) to your jaw or arm Sudden, severe shortness of breath or difficulty breathing Thank you for allowing us to participate in your care. Pending Studies at Discharge: No Stand-Alone Forms: My [facility], Smoking Cessation Medications and DC Order Prescriptions: Continued zolmitriptan 5 mg tablet Discharge Orders: Discharge Order (Routine); Ordered 03/05/22 Ordered By: Gui Skinner/Other Patient Handouts: Migraine Tension Headaches, Migraines and Cluster Headaches, Self-Care for Headaches, Migraine Triggers, Preventing Migraine Headaches ... Admission Data Admit Date/Time: 03/02/22 11:55 Attending Provider: Baldomero Rashid Admit Provider: Karuna Kiser Primary Care Provider: Ida Stacy Other Providers: Dustin Fajardo ; Nikolas Canchola Other Interventions: Discharge Summary Assessment (RN) Last Done: 03/05/22 09:36 Supervising Physician Co-Signing Physician Notes I also saw the patient confirmed velázquez portions of the history and physical examination. I agree with the impression plan as noted the resident documentation. This morning, patient denies headache. She is feeling much better. EXAM 134/78, 73, 18, 36.7, 90% on room air Alert and oriented. Speech is clear. Thought process well organized. Affect appropriate Heart regular rate and rhythm Respirations nonlabored IMPRESSION & PLAN Status migrainosus, resolved Vertigo, resolved Appreciate neurology consultation Patient will follow up with neurology as an outpatient Additional per resident documentation Resident Activity Tracking Resident Involvement: Resident Care Provided Care Provided: Adult Hospital Medicine
[2022-03-05] MEDS: ACETAMINOPHEN 325 MG TAB PO SCH (09:01)
[2022-03-08 05:25] LABS: Babesia microti DNA Not Detected (Not Detected)
== END 2022-03-05 11:00 | disposition home or self-care (01) ==
LOC: ED 08:49 → 2N 08:49 → SUATTDRO 11:55 → 2N 14:25